=== PATIENT | male | born 1980 | race Caucasian/White ===

== ENCOUNTER 2018-04-17 10:38 | Outpatient (REF) | payer OTHER, SELFPAY ==
[2018-04-17 21:37] LABS: TSH 2.16 uIU/mL (0.358-3.74)
== END 2018-04-17 10:58 ==
LOC: NCHCN 10:38
PROVIDERS: PCP Family Medicine; Visit Provider Registered Nurse
DX: F32.9 Major depressive disorder, single episode, unspecified (principal)
CPT/HCPCS: 84443

== ENCOUNTER 2018-04-23 19:05 | Outpatient (REF) | payer OTHER, SELFPAY ==
[2018-04-23 22:00] LABS: HCT 48.5 % (40.0-50.0); HGB 17.2 g/dL (13.5-17.5); Mean Corp. HGB Concentration 35.5 g/dL (32.0-36.0); Mean Corpuscular Hemoglobin 29.2 pg (27.0-33.0); Mean Corpuscular Volume 82.2 fL (80-95); Platelet Count 201 x1000/uL (130-400); RBC Distribution Width 13.5 % (11.8-14.1); White Blood Cell Count 7.19 k/cumm (4.4-10.8)
[2018-04-23 22:06] LABS: ALT 46 U/L (12-78); AST 17 U/L (15-37); Albumin 4.4 g/dL (3.4-5.0); Alkaline Phosphatase 63 U/L (46-116); Anion Gap 9.7 mmol/L (3-11); BUN 18 mg/dL (7-18); Bilirubin, Total 0.4 mg/dL (0.2-1.0); CO2 28.3 mmol/L (21.0-32.0); CREATININE 0.86 mg/dL (0.70-1.30); Calcium 9.1 mg/dL (8.5-10.1); Chloride 99 mmol/L (98-107); Glucose 227 mg/dL (70-100); Potassium 4.5 mmol/L (3.5-5.1); Sodium 137 mmol/L (136-145); Total Protein 7.6 g/dL (6.4-8.2)
== END 2018-04-23 19:25 ==
LOC: NCHCN 19:05
PROVIDERS: PCP Family Medicine; Visit Provider Registered Nurse
DX: R06.00 Dyspnea, unspecified (principal); R50.9 Fever, unspecified; F32.9 Major depressive disorder, single episode, unspecified; Z86.39 Personal history of other endocrine, nutritional and metabolic disease; E66.9 Obesity, unspecified
CPT/HCPCS: 80053; 85027

== ENCOUNTER 2022-08-30 14:48 | Outpatient (REF) | payer OTHER, SELFPAY ==
[2022-08-30 21:22] LABS: Microalb ug/mg Crea 15.8 ug/mg Cr
== END 2022-08-30 14:49 | disposition home or self-care (01) ==
LOC: NCHCN 14:48
PROVIDERS: PCP Family Medicine; Visit Provider Nurse Practitioner Family
DX: E11.9 Type 2 diabetes mellitus without complications (principal)
CPT/HCPCS: 82043; 82570

== ENCOUNTER 2022-11-29 11:33 | Outpatient (REF) | payer OTHER, SELFPAY ==
[2022-11-29 18:24] LABS: ALT 63 U/L (16-63); AST 28 U/L (15-37); Albumin 4.1 g/dL (3.4-5.0); Alkaline Phosphatase 59 U/L (46-116); Anion Gap 10.6 mmol/L (3-11); BUN 18 mg/dL (7-18); Bilirubin, Total 0.3 mg/dL (0.2-1.0); CO2 26.4 mmol/L (21.0-32.0); CREATININE 0.8 mg/dL (0.70-1.30); Calcium 9.1 mg/dL (8.5-10.1); Chloride 102 mmol/L (98-107); Cholesterol 228 mg/dL (<200); Estimated GFR 114.02 (mL/min/1.73m2); Glucose 183 mg/dL (74-106); HDL Cholesterol 37 mg/dL (40-60); Potassium 4.4 mmol/L (3.5-5.1); Sodium 139 mmol/L (136-145); Total Protein 7.2 g/dL (6.4-8.2); Triglyceride 454 mg/dL (<150)
[2022-11-29 19:27] LABS: LDL CHOLESTEROL 116 mg/dL (<100)
== END 2022-11-29 11:34 | disposition home or self-care (01) ==
LOC: NCHCN 11:33
PROVIDERS: PCP Family Medicine; Visit Provider Nurse Practitioner Family
DX: I10 Essential (primary) hypertension (principal); E66.9 Obesity, unspecified; E78.5 Hyperlipidemia, unspecified
CPT/HCPCS: 80053; 80061; 83721

== ENCOUNTER 2024-02-20 17:14 | Outpatient (REF) | payer OTHER, SELFPAY ==
--- OUTSIDE RECORDS SUMMARY | 2024-02-20 17:16 | XMS_ITS ---
Author Organization Unknown Address [address] [place] [address] [phone] Phone Care Team Providers Care Life Enrichment Manager Name Role Phone AUGIE CALLEJAS Registered Nurse Unavailable MICHAEL Rivers Attending Unavailable SHANNA Bush Provider Of Care Unavailable MELISSA Johnson Primary Unavailable UNLISTED PROVIDER - REQUESTED Xhandoff Un available Results D-DIMER - Collect Date/Time: 12/16/2020 16:24 [facility] ID: [id number] [address] [place] [address], [address] LOINC: 41283-5 Test Value Unit Reference Range Code Code System Flag D-DIMER 0.28 mg/L L=0.19 H=0.50 66604-3 LOINC COMPREHENSIVE METABOLIC PANE L (CMP) - Collect Date/Time: 12/16/2020 16:15 [facility] ID: [id number] [address] [place] [address], [address] LOINC: 03616-9 Test Value Unit Reference Range Code Code System Flag GLUCOSE 264 mg/dL L=70 H=116 2345-7 LOINC H BUN 19 mg/dL L=6 H=25 3094-0 LOINC CREATININE 1.12 mg/dL L=0.67 H=1.17 2160-0 LOINC SODIUM SERUM 137 mmol/L L=136 H=145 2951-2 LOINC POTASSIUM SERUM 4.7 mmol/L L=3.4 H=5.2 2823-3 LOINC CHLORIDE SERUM 99 mmol/L L=96 H=110 2075-0 LOINC CARBON DIOXIDE (CO2) 28 mmol/L L=22 H=34 2028-9 LOINC ANION GAP 10.2 mmol/L 78965-9 LOINC CALCIUM SERUM 9.3 mg/dL L=8.2 H=10.2 89152-3 LOINC BILIRUBIN TOTAL 0.5 mg/dL L=0.0 H=1.3 1975-2 LOINC ALK. PHOS. 84 U/L L=46 H=116 6768-6 LOINC SGOT (AST) 17 U/L L=15 H=37 1920-8 LOINC SGPT (ALT) 71 U/L L=12 H=78 1742-6 LOINC TOTAL PROTEIN 7.8 gm/dL L=6.0 H=8.0 2885-2 LOINC ALBUMIN 4.2 gm/dL L=3.4 H=5.0 1751-7 LOINC AGE 40 years eGFR (non-Afr.Amer.) 73 mL/min 34241-8 LOINC eGFR (Afr-Tajik) 88 mL/min 59275-5 LOINC TROPONIN-I ADM.* - Collect D ate/Time: 12/16/2020 16:15 [facility] ID: [id number] [address] [place] [address], [address] LOINC: 21403-0 Test Value Unit Reference Range Code Code System Flag TROPONIN-I < 0.017 ng/mL L=0.000 H=0.060 83340-0 LOINC CBC W/ DIFFERENTIAL* - Colle ct Date/Time: 12/16/2020 16:15 [facility] ID: [id number] [address] [place] [address], [address] LOINC: 24701-0 Test Value Unit Reference Range Code Code System Flag WBC 5.49 th/cmm L=5.00 H=10.00 6690-2 LOINC NEUT % 56.5 % L=40.0 H=80.0 LYMPH % 31.1 % L=10.0 H=50.0 MONO % 9.1 % L=2.0 H=12.0 19478-0 LOINC EOS % 0.9 % L=0.0 H=8.0 BASO % 1.3 % L=0.0 H=3.0 IG % 1.1 % L=0.0 H=1.1 2514-8 LOINC NRBC % 0.0 % L=0.0 H=0.0 20354-8 LOINC NEUT abs count 3.1 th/cmm L=1.6 H=8.4 751-8 LOINC LYMPH abs count 1.7 th/cmm L=1.5 H=4.0 731-0 LOINC MONO abs count 0.5 th/cmm L=0.2 H=1.0 742-7 LOINC EOS abs count 0.1 th/cmm L=0.0 H=0.5 711-2 LOINC BASO abs count 0.1 th/cmm L=0.0 H=0.2 704-7 LOINC IG abs count 0.1 th/cmm L=0.0 H=0.1 90397-4 LOINC NRBC abs count 0.0 mil/cmm L=0.0 H=0.0 61064-5 LOINC RBC 5.94 mil/cmm L=4.30 H=6.20 789-8 LOINC HEMOGLOBIN 18.1 gm/dL L=13.0 H=17.0 718-7 LOINC H HEMATOCRIT 51 % L=45 H=52 4544-3 LOINC MCV 86 fL L=82 H=92 787-2 LOINC MCH 30.5 pg L=27.0 H=31.0 785-6 LOINC MCHC 35.6 % L=32.0 H=36.0 786-4 LOINC RDW-SD 42.6 fL L=39.0 H=49.0 788-0 LOINC PLATELET COUNT 238 th/cmm L=150 H=450 777-3 LOINC XR EXAM CHEST 2 VIEWS - Comp leted: 12/16/2020 16:23 LOINC: CHEST, 2 VIEWS: Compared to 12/14/2020. Chest leads in place. Heart size is unchanged and the mediastinum is not widened. The lungs remain clear. There are no infiltrates nor pleural effusions. IMPRESSION: No acute pulmonary findings. No significant change compared to 12/14/2020. Dictated by: LORENZO ENRIQUE MD Transcribed by: ML 12/17/20/15:00 [id number] Electronically Reviewed and Signed By: SOMMER ENRIQUE MD 12/19/20 16:27 Copy for: MICHAEL Rivers via modem DISCHARGED Social History Type Status Start Date End Date Code Code Syst em Smoking History Never smoker (Never Smoked) 281022401 SNOMED CT Sex Male Vital Signs Vital Sign Value Unit [place] Value [place]wsley Unit Date/Time Recent/Initial? Code Code System Body Mass Index 44.48 kg/m2 12/16/2020 15:21 Initial 24291 -5 LOINC Systolic Blood Pressure 126 mm[Hg] 12/16/2020 15:21 Initial 8480- 6 LOINC Diastolic Blood Pressure 90 mm[Hg] 12/16/2020 15:21 Initial 8462- 4 LOINC Body Surface Area 2.64 m2 12/16/2020 15:21 Initial 3140- 1 LOINC Height 177.800 0 cm 70.00 in 12/16/2020 15:21 Initial 8302- 2 LOINC O2 Saturation 99 % 2020 15:21 Initial 09037 -5 LOINC Pulse 114.0 /min 12/16/2020 15:21 Initial 8867- 4 LOINC Respiration 22 /min 12/17/19 15:21 Initial 9279- 1 LOINC Temperature 36.4 Saskia 97.5 F 12/17/19 15:21 Initial 8310- 5 LOINC Weight 140.61 kg 310.00 lbs 12/16/2020 15:21 Initial 71718 -7 LOINC Medications Medication Start Date End Date Route Frequency Dose Code Code System Medication Instructions Home Meds Clindamycin 150MG Oral Capsule 10/07/2023 12/10/2023 ORAL THREE TIMES A DAY 3 CAPSULE 630333 RxNorm TAKE 3 CAPSULE ORAL THREE TIMES A DAY Assessment You had the following problems:DIABETES TYPE [facility] Discharge Instructions Should you have any questions prior to discharge, please contact a member of your healthcare team. If you have left the hospital and have any questions, please contact your primary care physician. Reason For Referral No Data Found Problems Problem Start Date Resolved Date Status Code Code System DIABETES TYPE I active 77493038 SNOM ED-CT HTN active 36393384 SNOMED-CT HIGH CHOLESTEROL active 64825979 SNO MED-CT Allergies and Adverse Reactions Allergy Substance Reaction Severity Start Date Concern Status Co de Code System CLINDAMYCIN RASH (SNOMED-CT: null) Active 3299 RxNorm Plan of Treatment Exposure 01/25/2020 Exposure 01/21/2020 Pre-Op Covid-19 Testing 12/31/2019 PRE-OP TESTING 10/17/2023 EKG 10/17/2023 LAB DRAW 15MIN 10/17/2023 MRI C SPINE W/O CONTRAST 09/02/2023 X-RAY 12/05/2022 LAB DRAW 15MIN 02/23/2022 LAB DRAW 15MIN 11/01/2021 LAB DRAW 15MIN 10/06/2021 LAB DRAW 15MIN 08/15/2021 LAB DRAW 15MIN 01/28/2021 X-RAY 12/14/2020 LAB DRAW 15MIN 12/13/2020 CT HEAD W/O CONTRAST 12/20/2020 PRE-OP TESTING 12/07/2020 LAB DRAW 15MIN 12/06/2020 Encounters Encounter Diagnosis Start Date Code Code Sys tem Chest pain 12/16/2020 50399507 SNOMED-CT Personal Care Team Section Performer Name Performer Role Active Date Inactive Da sharri
--- OUTSIDE RECORDS SUMMARY | 2024-02-20 17:16 | XMS_ITS ---
Author Organization Unknown Address [address] [place] [address] [phone] Phone Care Team Providers Care Size Worker Name Role Phone MELISSA Johnson Attending Unavailable Results THYROID TESTING CASCADE* - C ollect Date/Time: 12/13/2020 11:23 [facility] ID: [id number] [address] [place] [address], [address] LOINC: 3016-3 Test Value Unit Reference Range Code Code System Flag TSH. 1.943 uIU/mL L=0.360 H=3.740 3014-8 LOINC C REACTIVE PROTEIN HIGH SENS ITIVITY* - Collect Date/Time: 12/13/2020 11:23 [facility] ID: [id number] - [id number] [address] [place] [address], [address] LOINC: 06974-2 Test Value Unit Reference Range Code Code System Flag CRP-HIGH SENS. 17.25 mg/L L=0.00 H=3.00 82446-2 LOINC H CRP-HIGH SENS 1.73 mg/dL L=0.00 H=0.30 77031-5 LOINC H COMPREHENSIVE METABOLIC PANE L (CMP) - Collect Date/Time: 12/13/2020 11:23 [facility] ID: [id number] [address] [place] [address], [address] LOINC: 73586-5 Test Value Unit Reference Range Code Code System Flag GLUCOSE 310 mg/dL L=70 H=116 2345-7 LOINC H BUN 18 mg/dL L=6 H=25 3094-0 LOINC CREATININE 0.94 mg/dL L=0.67 H=1.17 2160-0 LOINC SODIUM SERUM 136 mmol/L L=136 H=145 2951-2 LOINC POTASSIUM SERUM 4.9 mmol/L L=3.4 H=5.2 2823-3 LOINC CHLORIDE SERUM 97 mmol/L L=96 H=110 2075-0 LOINC CARBON DIOXIDE (CO2) 30 mmol/L L=22 H=34 2028-9 LOINC ANION GAP 9.2 mmol/L 20535-7 LOINC CALCIUM SERUM 9.5 mg/dL L=8.2 H=10.2 14407-0 LOINC BILIRUBIN TOTAL 0.5 mg/dL L=0.0 H=1.3 1975-2 LOINC ALK. PHOS. 87 U/L L=46 H=116 6768-6 LOINC SGOT (AST) 27 U/L L=15 H=37 1920-8 LOINC SGPT (ALT) 103 U/L L=12 H=78 1742-6 LOINC H TOTAL PROTEIN 8.2 gm/dL L=6.0 H=8.0 2885-2 LOINC H ALBUMIN 4.2 gm/dL L=3.4 H=5.0 1751-7 LOINC AGE 40 years eGFR (non-Afr.Amer.) 89 mL/min 15615-7 LOINC eGFR (Afr-Gambian) 108 mL/min 87614-8 [facility] SED RATE* - Collect Date/Mao e: 12/13/2020 11:23 [facility] ID: [id number] [address] [place] [address], [address] LOINC: 4537-7 Test Value Unit Reference Range Code Code System Flag SED. RATE 4 mm/hr L=0 H=15 4537-7 [facility] CBC W/ DIFFERENTIAL* - Colle ct Date/Time: 12/13/2020 11:23 [facility] ID: [id number] [address] [place] [address], [address] LOINC: 86537-2 Test Value Unit Reference Range Code Code System Flag WBC 5.26 th/cmm L=5.00 H=10.00 6690-2 LOINC NEUT % 60.2 % L=40.0 H=80.0 LYMPH % 26.6 % L=10.0 H=50.0 MONO % 9.7 % L=2.0 H=12.0 51794-0 LOINC EOS % 1.1 % L=0.0 H=8.0 BASO % 1.1 % L=0.0 H=3.0 IG % 1.3 % L=0.0 H=1.1 2514-8 LOINC H NRBC % 0.0 % L=0.0 H=0.0 61660-0 LOINC NEUT abs count 3.2 th/cmm L=1.6 H=8.4 751-8 LOINC LYMPH abs count 1.4 th/cmm L=1.5 H=4.0 731-0 LOINC L MONO abs count 0.5 th/cmm L=0.2 H=1.0 742-7 LOINC EOS abs count 0.1 th/cmm L=0.0 H=0.5 711-2 LOINC BASO abs count 0.1 th/cmm L=0.0 H=0.2 704-7 LOINC IG abs count 0.1 th/cmm L=0.0 H=0.1 25552-4 LOINC NRBC abs count 0.0 mil/cmm L=0.0 H=0.0 07190-0 LOINC RBC 5.97 mil/cmm L=4.30 H=6.20 789-8 LOINC HEMOGLOBIN 17.4 gm/dL L=13.0 H=17.0 718-7 LOINC H HEMATOCRIT 51 % L=45 H=52 4544-3 LOINC MCV 85 fL L=82 H=92 787-2 LOINC MCH 29.1 pg L=27.0 H=31.0 785-6 LOINC MCHC 34.3 % L=32.0 H=36.0 786-4 LOINC RDW-SD 42.0 fL L=39.0 H=49.0 788-0 LOINC PLATELET COUNT 212 th/cmm L=150 H=450 777-3 LOINC D-DIMER - Collect Date/Time: 12/13/2020 11:23 [facility] ID: [id number] [address], [place], [address] LOINC: 59732-7 Test Value Unit Reference Range Code Code System Flag D-DIMER 0.30 mg/L L=0.19 H=0.50 92711-2 LOINC Social History Type Status Start Date End Date Code Code Syst em Smoking History Never smoker (Never Smoked) 701491384 SNOMED CT Sex Male Medications Medication Start Date End Date Route Frequency Dose Code Code System Medication Instructions Home Meds Clindamycin 150MG Oral Capsule 10/07/2023 12/10/2023 ORAL THREE TIMES A DAY 3 CAPSULE 19740218 RxNorm TAKE 3 CAPSULE ORAL THREE TIMES A DAY Assessment You had the following problems:DIABETES TYPE [facility] Discharge Instructions Should you have any questions prior to discharge, please contact a member of your healthcare team. If you have left the hospital and have any questions, please contact your primary care physician. Reason For Referral No Data Found Problems Problem Start Date Resolved Date Status Code Code System DIABETES TYPE I active 67140966 SNOM ED-CT HTN active 26371124 SNOMED-CT HIGH CHOLESTEROL active 65179681 SNO MED-CT Allergies and Adverse Reactions Allergy Substance Reaction Severity Start Date Concern Status Co de Code System CLINDAMYCIN RASH (SNOMED-CT: null) Active 3532 RxNorm Plan of Treatment Exposure 01/25/2020 Exposure [...] Diagnosis Start Date Code Code Sys tem Palpitations 12/13/2020 77963731 SNOMED-CT Personal Care Team Section Performer Name Performer Role Active Date Inactive Da te
--- OUTSIDE RECORDS SUMMARY | 2024-02-20 17:16 | XMS_ITS ---
Author Organization Unknown Address [address] [place] [address] [phone] Phone Care Team Providers Care Casting House Laborer Name Role Phone MELISSA Johnson Attending Unavailable Results XR EXAM CHEST 2 VIEWS - Comp leted: 12/14/2020 10:20 LOINC: PA AND LATERAL CHEST:Compari son is made with 2 June 01. The cardiac and mediastinal contours have a normal appearance. The lungs are clear. There is poor pulmonary inflation which could be second to patient body habitus. Mild degenerative changes are seen in the spine. IMPRESSION:No acute abnormality. Dictated by: CEO ARDEN ELIZALDE MD Transcribed by: KHANG 12/14/20/14:58 D Monday, December 14, 2020 10:16:33 AM 283301 [id number] Electronically Reviewed and Signed By: ARDEN ELIZALDE MD 12/14/20 15:47 Copy for: MELISSA Johnson via fax XR SHOULDER 2+ VIEWS LT* - C ompleted: 12/14/2020 10:20 LOINC: LEFT SHOULDER - 4 VIEWS: Four views were obtained. There is mild spurring at the AC joint. There is spurring at the greater and lesser tuberosities. The glenohumeral joint space is well maintained. IMPRESSION:Mild degenerative changes. Dictated by: ARDEN ELIZALDE MD Transcribed by: KHANG 12/14/20/15:00 D Monday, December 14, 2020 10:17:18 AM 298740 [id number] Electronically Reviewed and Signed By: ARDEN ELIZALDE MD 12/14/20 15:47 Copy for: MELISSA Johnson via fax Social History Type Status Start Date End Date Code Code Syst em Smoking History Never smoker (Never Smoked) 196722380 SNOMED CT Sex Male Medications Medication Start Date End Date Route Frequency Dose Code Code System Medication Instructions Home Meds Clindamycin 150MG Oral Capsule 10/07/2023 12/10/2023 ORAL THREE TIMES A DAY 3 CAPSULE 19740218 RxNorm TAKE 3 CAPSULE ORAL THREE TIMES A DAY Assessment You had the following problems:DIABETES TYPE [facility] Discharge Instructions Should you have any questions prior to discharge, please contact a member of your healthcare team. If you have left the hospital and have any questions, please contact your primary care physician. Reason For Referral No Data Found Problems Problem Start Date Resolved Date Status Code Code System DIABETES TYPE I active 05909276 SNOM ED-CT HTN active 49607819 SNOMED-CT HIGH CHOLESTEROL active 95273435 SNO MED-CT Allergies and Adverse Reactions Allergy Substance Reaction Severity Start Date Concern Status Co de Code System CLINDAMYCIN RASH (SNOMED-CT: null) Active 2582 RxNorm Plan of Treatment Exposure 01/25/2020 Exposure [...] Date Code Code Sys tem Chest pain 12/14/2020 35952638 SNOMED-CT Personal Care Team Section Performer Name Performer Role Active Date Inactive Da sharri
--- OUTSIDE RECORDS SUMMARY | 2024-02-20 17:17 | XMS_ITS ---
Author Organization Unknown Address [address] [place] [address] [phone] Phone Care Team Providers Care Center Medical And Lab Director Name Role Phone MELISSA GORDO Alex Attending Unavailable Results C REACTIVE PROTEIN HIGH SENS ITIVITY* - Collect Date/Time: 01/28/2021 08:00 [facility] ID: [id number] [address] [place] [address], [address] LOINC: 19707-2 Test Value Unit Reference Range Code Code System Flag CRP-HIGH SENS. 4.00 mg/L L=0.00 H=3.00 34204-3 LOINC H CRP-HIGH SENS 0.40 mg/dL L=0.00 H=0.30 15656-9 LOINC H LIPID PANEL* - Collect Date/ Time: 01/28/2021 08:00 [facility] ID: [id number] [address] [place] [address], [id number] LOINC: Test Value Unit Reference Range Code Code System Flag FASTING STATUS: NOT KNOWN CHOLESTEROL 164 mg/dL L=0 H=200 2093-3 LOINC TRIGLYCERIDES 325 mg/dL L=56 H=318 2571-8 LOINC H HDL 32 mg/dL L=27 H=67 2085-9 LOINC non-HDL-C 132 mg/dL L=0 H=160 66115-6 LOINC LDL (CALC) 67 mg/dL L=0 H=130 66999-3 LOINC % HDL 19.5 % Chol/HDL Ratio 5.1 L=0.0 H=4.9 9830-1 LOINC H CHD Relative Risk 1.0 x Avg L=0.0 H=1.0 LDL/HDL Ratio 2.1 L=0.0 H=3.5 24300-3 LOINC CHD Relative Risk. 0.6 x Avg L=0.0 H=1.0 MICROALBUMIN URINE - Collect Date/Time: 01/28/2021 08:00 [facility] ID: [id number] - [id number] [address] [place], [place], [id number] LOINC: 73303-5 Test Value Unit Reference Range Code Code System Flag Creatinine Urine 88.7 mg/dl 2161-8 LOINC Microalb mg/dl 3.4 mg/dl 24569-2 LOINC Microalbumin ug/mg C 38.3 ug/mg Cr 9318-7 LOINC HEMOGLOBIN A1C* - Collect Da te/Time: 01/28/2021 08:00 [facility] ID: [id number] [address] [place] [address], [address] LOINC: 75449-2 Test Value Unit Reference Range Code Code System Flag Hgb A1c 8.1 % L=3.8 H=5.7 4548-4 LOINC H MEAN BLOOD GLUCOSE 184 mg/dL 70440-2 LOINC Social History Type Status Start Date End Date Code Code Syst em Smoking History Never smoker (Never Smoked) 241235231 SNOMED CT Sex Male Medications Medication Start Date End Date Route Frequency Dose Code Code System Medication Instructions Home Meds Clindamycin 150MG Oral Capsule 10/07/2023 12/10/2023 ORAL THREE TIMES A DAY 3 CAPSULE 358877 RxNorm TAKE 3 CAPSULE ORAL THREE TIMES A DAY Assessment You had the following problems:DIABETES TYPE [facility] Discharge Instructions Should you have any questions prior to discharge, please contact a member of your healthcare team. If you have left the hospital and have any questions, please contact your primary care physician. Reason For Referral No Data Found Problems Problem Start Date Resolved Date Status Code Code System DIABETES TYPE I active 28335084 SNOM ED-CT HTN active 05551001 SNOMED-CT HIGH CHOLESTEROL active 20086103 SNO MED-CT Allergies and Adverse Reactions Allergy Substance Reaction Severity Start Date Concern Status Co de Code System CLINDAMYCIN RASH (SNOMED-CT: null) Active 2584 RxNorm Plan of Treatment Exposure 01/25/2020 Exposure [...] Diagnosis Start Date Code Code Sys tem Type 2 diabetes mellitus without complication 01/29/20 21 791036358 SNOMED-CT Personal Care Team Section Performer Name Performer Role Active Date Inactive Da te
--- OUTSIDE RECORDS SUMMARY | 2024-02-20 17:17 | XMS_ITS ---
Author Organization Unknown Address [address] [place] [address] [phone] Phone Care Team Providers Care Nurse Examiner Name Role Phone BRIGIDA Barajas Attending Unavailable CRICKET Patel Primary Unavailable Social History Type Status Start Date End Date Code Code Syst em Smoking History Never smoker (Never Smoked) 291090871 SNOMED CT Sex Male Vital Signs Vital Sign Value Unit [place] Value [place] Unit Date/Time Recent/Initial? Code Code System Body Mass Index 46.07 kg/m2 12/24/2023 12:47 Initial 39863- 5 [facility] Body Surface Area 2.62 m2 12/24/2023 12:47 Initial 3140-1 LOINC Height 175.2600 cm 69.00 in 12/24/2023 12:47 Initial 8302-2 INC Weight 141.52 kg 312.00 lbs 12/24/2023 12:47 Initial 84862- 7 [facility] Medications Medication Start Date End Date Route Frequency Dose Code Code System Medication Instructions Orders ALTEPLASE INJ SDV: 2MG 12/24/2023 12/24/2023 IV PUSH X1 2 MG 4171283 RxNorm 2 MG IV P USH ONE TIME ALTEPLASE INJ SDV: 2MG 12/27/2023 12/27/2023 IV PUSH X1 2 MG 2122769 RxNorm 2 MG IV P USH ONE TIME DAPTOmycin INJ SDV: 500MG 01/01/2024 02/04/2024 IV PIGGYBACK Q24H 100 ml/hr 049124 RxNorm 100 ml/hr IV PIGGYBACK EVERY 24 HOURS ~~~DAPTOmycin INJ SDV: 500MG 500 MG RxNorm ~~~DAPTOmycin INJ SDV: 350MG 300 MG RxNorm ~~~SODIUM CHLORIDE 0.9% 50ML 50 ML RxNorm Assessment You had the following problems:DIABETES TYPE [facility] Discharge Instructions Should you have any questions prior to discharge, please contact a member of your healthcare team. If you have left the hospital and have any questions, please contact your primary care physician. Reason For Referral No Data Found Problems Problem Start Date Resolved Date Status Code Code System DIABETES TYPE I active 20884489 SNOM ED-CT HTN active 24315897 SNOMED-CT HIGH CHOLESTEROL active 71316792 SNO MED-CT Allergies and Adverse Reactions Allergy Substance Reaction Severity Start Date Concern Status Co de Code System CLINDAMYCIN RASH (SNOMED-CT: null) Active 1422 RxNorm Plan of Treatment Exposure 01/25/2020 Exposure [...] Diagnosis Start Date Code Code Sys tem Other mechanical complicatio n of infusion catheter, initial encounter 12/24/2023 SNOMED-CT Personal Care Team Section Performer Name Performer Role Active Date Inactive Da te
--- OUTSIDE RECORDS SUMMARY | 2024-02-20 17:17 | XMS_ITS ---
Author Organization Unknown Address [address] [place] [address] [phone] Phone Care Team Providers Care Brokerage Office Manager Name Role Phone MELISSA Johnson Attending Unavailable Results CT HEAD BRAIN WO DYE - Compl eted: 12/20/2020 17:08 LOINC: Radiation optimization: All CT scans at this facility use at least one of these dose optimization techniques: automated exposure control; mA and/or kV adjustment per patient size (includes targeted exams where dose is matched to clinical indication); or iterative reconstruction. HEAD CT: There are no skull fractures nor fluid in the visualized paranasal sinuses.?? There is no evidence of intracranial hemorrhage, mass effect, nor shift of midline structures.?? There are no extraaxial fluid collections.?? The ventricles are not enlarged nor shifted and there is no blood within the ventricular system nor within the basal cisterns.?? IMPRESSION:No acute intracranial findings on this non-infused CT scan of the brain. Dictated by: LORENZO ENRIQUE MD Transcribed by: KHANG 12/21/20/10:42 D Sunday, December 20, 2020 5:07:38 PM [id number] Electronically Reviewed and Signed By: SOMMER ENRIQUE MD 12/21/20 19:57 Social History Type Status Start Date End Date Code Code Syst em Smoking History Never smoker (Never Smoked) 857906740 SNOMED CT Sex Male Medications Medication Start Date End Date Route Frequency Dose Code Code System Medication Instructions Home Meds Clindamycin 150MG Oral Capsule 10/07/2023 12/10/2023 ORAL THREE TIMES A DAY 3 CAPSULE 167039 RxNorm TAKE 3 CAPSULE ORAL THREE TIMES A DAY Assessment You had the following problems:DIABETES TYPE [facility] Discharge Instructions Should you have any questions prior to discharge, please contact a member of your healthcare team. If you have left the hospital and have any questions, please contact your primary care physician. Reason For Referral No Data Found Problems Problem Start Date Resolved Date Status Code Code System DIABETES TYPE I active 08454422 SNOM ED-CT HTN active 08085346 SNOMED-CT HIGH CHOLESTEROL active 96007103 SNO MED-CT Allergies and Adverse Reactions Allergy Substance Reaction Severity Start Date Concern Status Co de Code System CLINDAMYCIN RASH (SNOMED-CT: null) Active 7419 RxNorm Plan of Treatment Exposure 01/25/2020 Exposure [...] Diagnosis Start Date Code Code Sys tem Closed fracture of vault of skull 12/20/2020 0221113 00 SNOMED-CT Personal Care Team Section Performer Name Performer Role Active Date Inactive Da sharri
--- OUTSIDE RECORDS SUMMARY | 2024-02-20 17:18 | XMS_ITS ---
Author Organization Unknown Address [address] [place] [address] [phone] Phone Care Team Providers Care Industrial Engineering Technician Name Role Phone MELISSA Johnson Attending Unavailable Results HEMOGLOBIN A1C* - Collect Da te/Time: 08/15/2021 13:36 [facility] ID: [id number] [address] [place] [address], [address] LOINC: 4548-4 Test Value Unit Reference Range Code Code System Flag Hgb A1c 7.8 % L=3.8 H=5.7 4548-4 LOINC H MEAN BLOOD GLUCOSE 174 mg/dL 79288-4 LOINC COMPREHENSIVE METABOLIC PANE L (CMP) - Collect Date/Time: 08/15/2021 13:36 [facility] ID: [id number] [address] [place] [address], [address] LOINC: 52180-4 Test Value Unit Reference Range Code Code System Flag GLUCOSE 250 mg/dL L=70 H=116 2345-7 LOINC H BUN 19 mg/dL L=6 H=25 3094-0 LOINC CREATININE 1.05 mg/dL L=0.67 H=1.17 2160-0 LOINC SODIUM SERUM 136 mmol/L L=136 H=145 2951-2 LOINC POTASSIUM SERUM 4.4 mmol/L L=3.4 H=5.2 2823-3 LOINC CHLORIDE SERUM 98 mmol/L L=96 H=110 2075-0 LOINC CARBON DIOXIDE (CO2) 27 mmol/L L=22 H=34 2028-9 LOINC ANION GAP 11.4 mmol/L 44076-3 LOINC CALCIUM SERUM 8.7 mg/dL L=8.2 H=10.2 41626-4 LOINC BILIRUBIN TOTAL 0.3 mg/dL L=0.0 H=1.3 1975-2 LOINC ALK. PHOS. 77 U/L L=46 H=116 6768-6 LOINC SGOT (AST) 8 U/L L=15 H=37 1920-8 LOINC L SGPT (ALT) 43 U/L L=12 H=78 1742-6 LOINC TOTAL PROTEIN 7.3 gm/dL L=6.0 H=8.0 2885-2 LOINC ALBUMIN 3.8 gm/dL L=3.4 H=5.0 1751-7 LOINC AGE 41 years eGFR (non-Afr.Amer.) 78 mL/min 97100-0 LOINC eGFR (Afr-Citizen Of [place]) 95 mL/min 73188-5 LOINC CBC W/ DIFFERENTIAL* - Colle ct Date/Time: 08/15/2021 13:36 [facility] ID: [id number] [address] [place], [place], [address] LOINC: 53748-5 Test Value Unit Reference Range Code Code System Flag WBC 5.89 th/cmm L=5.00 H=10.00 6690-2 LOINC NEUT % 61.7 % L=40.0 H=80.0 LYMPH % 25.6 % L=10.0 H=50.0 MONO % 9.2 % L=2.0 H=12.0 97008-9 LOINC EOS % 1.5 % L=0.0 H=8.0 BASO % 0.8 % L=0.0 H=3.0 IG % 1.2 % L=0.0 H=1.1 2514-8 LOINC H NRBC % 0.0 % L=0.0 H=0.0 51230-3 LOINC NEUT abs count 3.6 th/cmm L=1.6 H=8.4 751-8 LOINC LYMPH abs count 1.5 th/cmm L=1.5 H=4.0 731-0 LOINC MONO abs count 0.5 th/cmm L=0.2 H=1.0 742-7 LOINC EOS abs count 0.1 th/cmm L=0.0 H=0.5 711-2 LOINC BASO abs count 0.1 th/cmm L=0.0 H=0.2 704-7 LOINC IG abs count 0.1 th/cmm L=0.0 H=0.1 95694-0 LOINC NRBC abs count 0.0 mil/cmm L=0.0 H=0.0 79166-0 LOINC RBC 5.62 mil/cmm L=4.30 H=6.20 789-8 LOINC HEMOGLOBIN 16.4 gm/dL L=13.0 H=17.0 718-7 LOINC HEMATOCRIT 48 % L=45 H=52 4544-3 LOINC MCV 85 fL L=82 H=92 787-2 LOINC MCH 29.2 pg L=27.0 H=31.0 785-6 LOINC MCHC 34.5 % L=32.0 H=36.0 786-4 LOINC RDW-SD 40.4 fL L=39.0 H=49.0 788-0 LOINC PLATELET COUNT 181 th/cmm L=150 H=450 777-3 LOINC Social History Type Status Start Date End Date Code Code Syst em Smoking History Never smoker (Never Smoked) 840626023 SNOMED CT Sex Male Medications Medication Start Date End Date Route Frequency Dose Code Code System Medication Instructions Home Meds Clindamycin 150MG Oral Capsule 10/07/2023 12/10/2023 ORAL THREE TIMES A DAY 3 CAPSULE 958865 RxNorm TAKE 3 CAPSULE ORAL THREE TIMES A DAY Assessment You had the following problems:DIABETES TYPE [facility] Discharge Instructions Should you have any questions prior to discharge, please contact a member of your healthcare team. If you have left the hospital and have any questions, please contact your primary care physician. Reason For Referral No Data Found Problems Problem Start Date Resolved Date Status Code Code System DIABETES TYPE I active 87746361 SNOM ED-CT HTN active 85946936 SNOMED-CT HIGH CHOLESTEROL active 59102390 SNO MED-CT Allergies and Adverse Reactions Allergy [...] tem Type 2 diabetes mellitus without complication 08/16/19 815290403 SNOMED-CT Personal Care Team Section Performer Name Performer Role Active Date Inactive Da sharri
--- OUTSIDE RECORDS SUMMARY | 2024-02-20 17:18 | XMS_ITS ---
Author Organization Unknown Address [address] [place] [address] [phone] Phone Care Team Providers Care Breast Worker Name Role Phone JOSE Patel Attending Unavailable CRICKET Patel Primary Unavailable Results BASIC METABOLIC PANEL (BMP) - Collect Date/Time: 12/23/2023 10:32 [facility] ID: [id number] [address], [place], [address] LOINC: 35646-4 Test Value Unit Reference Range Code Code System Flag GLUCOSE 154 mg/dL L=70 H=116 2345-7 LOINC H BUN 14 mg/dL L=6 H=25 3094-0 LOINC CREATININE 0.78 mg/dL L=0.67 H=1.17 2160-0 LOINC SODIUM SERUM 140 mmol/L L=136 H=145 2951-2 LOINC POTASSIUM SERUM 4.4 mmol/L L=3.4 H=5.2 2823-3 LOINC CHLORIDE SERUM 106 mmol/L L=96 H=110 2075-0 LOINC CARBON DIOXIDE (CO2) 25 mmol/L L=22 H=34 2028-9 LOINC ANION GAP 9.3 mmol/L 69134-5 LOINC CALCIUM SERUM 8.8 mg/dL L=8.2 H=10.2 87285-2 LOINC AGE 43 years eGFR (non-Afr.Amer.) 109 mL/min 75378-1 LOINC eGFR (Afr-Cuban) > 120 mL/min 71279-4 LOINC VANCOMYCIN TROUGH* - Collect Date/Time: 12/23/2023 10:32 [facility] ID: [id number] [address] [place] [address], [address] LOINC: 4092-3 Test Value Unit Reference Range Code Code System Flag VANCOMYCIN, TROUGH 26.8 ug/mL L=15.0 H=20.0 H SED RATE* - Collect Date/Mao e: 12/23/2023 10:32 [facility] ID: [id number] [address] [place] [address], [address] LOINC: 4537-7 Test Value Unit Reference Range Code Code System Flag SED. RATE 5 mm/hr L=0 H=15 4537-7 LOINC C REACTIVE PROTEIN HIGH SENS ITIVITY* - Collect Date/Time: 12/23/2023 10:32 [facility] ID: [id number] [address] [place] [address], [address] LOINC: 98453-8 Test Value Unit Reference Range Code Code System Flag CRP-HIGH SENS. 4.43 mg/L L=0.00 H=3.00 09890-8 LOINC H CBC W/ DIFFERENTIAL* - Colle ct Date/Time: 12/23/2023 10:32 [facility] ID: [id number] [address] [place] [address], [address] LOINC: 48232-9 Test Value Unit Reference Range Code Code System Flag WBC 4.88 th/cmm L=5.00 H=10.00 6690-2 LOINC L NEUT % 59.0 % L=40.0 H=80.0 LYMPH % 27.5 % L=10.0 H=50.0 MONO % 7.0 % L=2.0 H=12.0 20236-1 LOINC EOS % 3.7 % L=0.0 H=8.0 BASO % 1.4 % L=0.0 H=3.0 IG % 1.4 % L=0.0 H=1.1 9074-8 LOINC H NRBC % 0.0 % L=0.0 H=0.0 22051-3 LOINC NEUT abs count 2.9 th/cmm L=1.6 H=8.4 751-8 LOINC LYMPH abs count 1.3 th/cmm L=1.5 H=4.0 731-0 LOINC L MONO abs count 0.3 th/cmm L=0.2 H=1.0 742-7 LOINC EOS abs count 0.2 th/cmm L=0.0 H=0.5 711-2 LOINC BASO abs count 0.1 th/cmm L=0.0 H=0.2 704-7 LOINC IG abs count 0.1 th/cmm L=0.0 H=0.1 03761-5 LOINC NRBC abs count 0.0 mil/cmm L=0.0 H=0.0 64049-8 LOINC RBC 5.14 mil/cmm L=4.30 H=6.20 789-8 LOINC HEMOGLOBIN 15.3 gm/dL L=13.0 H=17.0 718-7 LOINC HEMATOCRIT 44 % L=45 H=52 4544-3 LOINC L MCV 86 fL L=82 H=92 787-2 LOINC MCH 29.8 pg L=27.0 H=31.0 785-6 LOINC MCHC 34.6 % L=32.0 H=36.0 786-4 LOINC RDW-SD 40.7 fL L=39.0 H=49.0 788-0 LOINC PLATELET COUNT 182 th/cmm L=150 H=450 777-3 LOINC Social History Type Status Start Date End Date Code Code Syst em Smoking History Never smoker (Never Smoked) 957364719 SNOMED CT Sex Male Assessment You had the following problems:DIABETES TYPE [facility] Discharge Instructions Should you have any questions prior to discharge, please contact a member of your healthcare team. If you have left the hospital and have any questions, please contact your primary care physician. Reason For Referral No Data Found Problems Problem Start Date Resolved Date Status Code Code System DIABETES TYPE I active 05271554 SNOM ED-CT HTN active 05963971 SNOMED-CT HIGH CHOLESTEROL active 31808785 SNO MED-CT Allergies and Adverse Reactions Allergy Substance Reaction Severity Start Date Concern Status Co de Code System CLINDAMYCIN RASH (SNOMED-CT: null) Active 9819 RxNorm Plan of Treatment Exposure 01/25/2020 Exposure [...] Diagnosis Start Date Code Code Sys tem Surgical site infection 12/23/2023 380758664 [facility] ED-CT Personal Care Team Section Performer Name Performer Role Active Date Inactive Da te
--- OUTSIDE RECORDS SUMMARY | 2024-02-20 17:19 | XMS_ITS ---
Author Organization Unknown Address [address] [place] [address] [phone] Phone Care Team Providers Care Security Guard Name Role Phone MELISSA Johnson Attending Unavailable Results HEMOGLOBIN A1C* - Collect Da te/Time: 11/01/2021 13:17 [facility] ID: [id number] - [id number] [address] [place] [address], [address] LOINC: 4548-4 Test Value Unit Reference Range Code Code System Flag Hgb A1c 7.6 % L=3.8 H=5.7 4548-4 LOINC H MEAN BLOOD GLUCOSE 167 mg/dL 98894-4 LOINC LITHIUM - Collect Date/Time: 11/01/2021 13:17 [facility] ID: [id number] [address] [place] [address], [id number] LOINC: 3719-2 Test Value Unit Reference Range Code Code System Flag LITHIUM < 0.2 mEq/L L=0.6 H=1.2 3719-2 LOINC L Social History Type Status Start Date End Date Code Code Syst em Smoking History Never smoker (Never Smoked) 364682321 SNOMED CT Sex Male Medications Medication Start Date End Date Route Frequency Dose Code Code System Medication Instructions Home Meds Clindamycin 150MG Oral Capsule 10/07/2023 12/10/2023 ORAL THREE TIMES A DAY 3 CAPSULE 19740218 RxNorm TAKE 3 CAPSULE ORAL THREE TIMES A DAY Assessment You had the following problems:DIABETES TYPE [facility] Discharge Instructions Should you have any questions prior to discharge, please contact a member of your healthcare team. If you have left the hospital and have any questions, please contact your primary care physician. Reason For Referral No Data Found Problems Problem Start Date Resolved Date Status Code Code System DIABETES TYPE I active 20518934 SNOM ED-CT HTN active 31331488 SNOMED-CT HIGH CHOLESTEROL active 33184729 SNO MED-CT Allergies and Adverse Reactions Allergy Substance Reaction Severity Start Date Concern Status Co de Code System CLINDAMYCIN RASH (SNOMED-CT: null) Active 4590 RxNorm Plan of Treatment Exposure 01/25/2020 Exposure [...] Diagnosis Start Date Code Code Sys tem Bipolar disorder 11/01/2021 12542797 SNOMED-CT Personal Care Team Section Performer Name Performer Role Active Date Inactive Da sharri
--- OUTSIDE RECORDS SUMMARY | 2024-02-20 17:19 | XMS_ITS ---
Author Organization Unknown Address [address] [place] [address] [phone] Phone Care Team Providers Care Application Support Engineer Name Role Phone DAMIEN Ferrara Attending Unavailable MELISSA Johnson Primary Unavailable Social History Type Status Start Date End Date Code Code Syst em Smoking History Never smoker (Never Smoked) 204825107 SNOMED CT Sex Male Medications Medication Start Date End Date Route Frequency Dose Code Code System Medication Instructions Home Meds Clindamycin 150MG Oral Capsule 10/07/2023 12/10/2023 ORAL THREE TIMES A DAY 3 CAPSULE 081647 RxNorm TAKE 3 CAPSULE ORAL THREE TIMES A DAY Assessment You had the following problems:DIABETES TYPE [facility] Discharge Instructions Should you have any questions prior to discharge, please contact a member of your healthcare team. If you have left the hospital and have any questions, please contact your primary care physician. Reason For Referral No Data Found Problems Problem Start Date Resolved Date Status Code Code System DIABETES TYPE I active 53458020 SNOM ED-CT HTN active 46863279 SNOMED-CT HIGH CHOLESTEROL active 02322235 SNO MED-CT Allergies and Adverse Reactions Allergy [...] Start Date Code Code Sys tem Palpitations 11/27/2021 46017241 SNOMED-CT Personal Care Team Section Performer Name Performer Role Active Date Inactive Da te
--- OUTSIDE RECORDS SUMMARY | 2024-02-20 17:19 | XMS_ITS ---
Author Organization Unknown Address [address] [place] [address] [phone] Phone Care Team Providers Care Variety Performer Name Role Phone MELISSA Johnson Attending Unavailable Results HEMOGLOBIN A1C* - Collect Da te/Time: 02/23/2022 08:33 [facility] ID: [id number] [address] [place], [place], [address] LOINC: 4548-4 Test Value Unit Reference Range Code Code System Flag Hgb A1c 7.5 % L=3.8 H=5.7 4548-4 LOINC H MEAN BLOOD GLUCOSE 164 mg/dL 09494-4 LOINC Social History Type Status Start Date End Date Code Code Syst em Smoking History Never smoker (Never Smoked) 562319091 SNOMED CT Sex Male Medications Medication Start Date End Date Route Frequency Dose Code Code System Medication Instructions Home Meds Clindamycin 150MG Oral Capsule 10/07/2023 12/10/2023 ORAL THREE TIMES A DAY 3 CAPSULE 077125 RxNorm TAKE 3 CAPSULE ORAL THREE TIMES A DAY Assessment You had the following problems:DIABETES TYPE [facility] Discharge Instructions Should you have any questions prior to discharge, please contact a member of your healthcare team. If you have left the hospital and have any questions, please contact your primary care physician. Reason For Referral No Data Found Problems Problem Start Date Resolved Date Status Code Code System DIABETES TYPE I active 16751074 SNOM ED-CT HTN active 28949826 SNOMED-CT HIGH CHOLESTEROL active 77496429 SNO MED-CT Allergies and Adverse Reactions Allergy [...] tem Type 2 diabetes mellitus without complication 02/23/19 23 750263960 SNOMED-CT Personal Care Team Section Performer Name Performer Role Active Date Inactive Da sharri
--- OUTSIDE RECORDS SUMMARY | 2024-02-20 17:19 | XMS_ITS ---
Author Organization Unknown Address [address] [place] [address] [phone] Phone Care Team Providers Care Sole Painter Name Role Phone MELISSA Johnson Attending Unavailable Results THYROID TESTING CASCADE* - C ollect Date/Time: 10/06/2021 10:08 [facility] ID: [id number] - [id number] [address] [place] [address], 5[address] LOINC: 3016-3 Test Value Unit Reference Range Code Code System Flag TSH. 2.635 uIU/mL L=0.360 H=3.740 3014-8 LOINC BASIC METABOLIC PANEL (BMP) - Collect Date/Time: 10/06/2021 10:08 [facility] ID: [id number] [address] [place] [address], 5[address] LOINC: 84365-8 Test Value Unit Reference Range Code Code System Flag GLUCOSE 148 mg/dL L=70 H=116 2345-7 LOINC H BUN 18 mg/dL L=6 H=25 3094-0 LOINC CREATININE 0.94 mg/dL L=0.67 H=1.17 2160-0 LOINC SODIUM SERUM 139 mmol/L L=136 H=145 2951-2 LOINC POTASSIUM SERUM 4.5 mmol/L L=3.4 H=5.2 2823-3 LOINC CHLORIDE SERUM 101 mmol/L L=96 H=110 2075-0 LOINC CARBON DIOXIDE (CO2) 32 mmol/L L=22 H=34 2028-9 LOINC ANION GAP 6.3 mmol/L 71379-6 LOINC CALCIUM SERUM 9.1 mg/dL L=8.2 H=10.2 23889-2 LOINC AGE 41 years eGFR (non-Afr.Amer.) 89 mL/min 46696-7 LOINC eGFR (Afr-Peruvian) 108 mL/min 37868-1 LOINC CBC W/ DIFFERENTIAL* - Colle ct Date/Time: 10/06/2021 10:08 [facility] ID: [id number] [address], [place], [address] LOINC: 89618-8 Test Value Unit Reference Range Code Code System Flag WBC 6.44 th/cmm L=5.00 H=10.00 6690-2 LOINC NEUT % 65.7 % L=40.0 H=80.0 LYMPH % 22.7 % L=10.0 H=50.0 MONO % 8.4 % L=2.0 H=12.0 11249-5 LOINC EOS % 1.6 % L=0.0 H=8.0 BASO % 0.8 % L=0.0 H=3.0 IG % 0.8 % L=0.0 H=1.1 2514-8 LOINC NRBC % 0.0 % L=0.0 H=0.0 76062-1 LOINC NEUT abs count 4.2 th/cmm L=1.6 H=8.4 751-8 LOINC LYMPH abs count 1.5 th/cmm L=1.5 H=4.0 731-0 LOINC MONO abs count 0.5 th/cmm L=0.2 H=1.0 742-7 LOINC EOS abs count 0.1 th/cmm L=0.0 H=0.5 711-2 LOINC BASO abs count 0.1 th/cmm L=0.0 H=0.2 704-7 LOINC IG abs count 0.1 th/cmm L=0.0 H=0.1 07146-4 LOINC NRBC abs count 0.0 mil/cmm L=0.0 H=0.0 38220-0 LOINC RBC 6.01 mil/cmm L=4.30 H=6.20 789-8 LOINC HEMOGLOBIN 17.6 gm/dL L=13.0 H=17.0 718-7 LOINC H HEMATOCRIT 51 % L=45 H=52 4544-3 LOINC MCV 85 fL L=82 H=92 787-2 LOINC MCH 29.3 pg L=27.0 H=31.0 785-6 LOINC MCHC 34.4 % L=32.0 H=36.0 786-4 LOINC RDW-SD 41.6 fL L=39.0 H=49.0 788-0 LOINC PLATELET COUNT 183 th/cmm L=150 H=450 777-3 LOINC URINALYSIS ROUTINE* - [facility] t Date/Time: 10/06/2021 10:08 [facility] ID: [id number] [address], [place], [address] LOINC: Test Value Unit Reference Range Code Code System Flag COLLECTION MODE: CLEAN CATCH 95647-4 LOINC Color YELLOW yellow 5778-6 LOINC Appearance CLEAR clear 5767-9 LOINC Glucose urine >=1000 negative mg/dl 12132-4 LOINC A Bilirubin NEGATIVE negative 5770-3 LOINC Ketones NEGATIVE negative mg/dl 2514-8 LOINC Spec gravity 1.015 1.003 - 1.030 5811-5 LOINC pH urine 5.5 5.0 - 7.0 2756-5 LOINC Protein NEGATIVE negative mg/dl 22575-7 LOINC Urobilinogen 0.2 <or= 1 EU/dl 57150-1 LOINC Nitrite NEGATIVE negative 5802-4 LOINC Blood NEGATIVE negative 5794-3 LOINC Leukocytes NEGATIVE negative 52220-6 LOINC MICROSCOPIC* NOT INDICAT Social History Type Status Start Date End Date Code Code Syst em Smoking History Never smoker (Never Smoked) 876489733 SNOMED CT Sex Male Medications Medication Start Date End Date Route Frequency Dose Code Code System Medication Instructions Home Meds Clindamycin 150MG Oral Capsule 10/07/2023 12/10/2023 ORAL THREE TIMES A DAY 3 CAPSULE 19740218 RxNorm TAKE 3 CAPSULE ORAL THREE TIMES A DAY Assessment You had the following problems:DIABETES TYPE [facility] Discharge Instructions Should you have any questions prior to discharge, please contact a member of your healthcare team. If you have left the hospital and have any questions, please contact your primary care physician. Reason For Referral No Data Found Problems Problem Start Date Resolved Date Status Code Code System DIABETES TYPE I active 58986807 SNOM ED-CT HTN active 74100482 SNOMED-CT HIGH CHOLESTEROL active 95170021 SNO MED-CT Allergies and Adverse Reactions Allergy Substance Reaction Severity Start Date Concern Status Co de Code System CLINDAMYCIN RASH (SNOMED-CT: null) Active 0999 RxNorm Plan of Treatment Exposure 01/25/2020 Exposure [...] Date Code Code Sys tem Bipolar disorder 10/06/2021 74758767 SNOMED-CT Personal Care Team Section Performer Name Performer Role Active Date Inactive Da sharri
--- OUTSIDE RECORDS SUMMARY | 2024-02-20 17:20 | XMS_ITS ---
Author Organization Unknown Address [address] [place] [address] [phone] Phone Care Team Providers Care Gis Programmer Name Role Phone CRICKET Patel Attending Unavailable Results XR C SPINE 4V OR 5V - Comple ayla: 12/05/2022 09:29 LOINC: [facility] [place], [place] [address] PACS DIRECT SUPPORT PROFESSIONAL CAREGIVER REPORT Patient Name: YAYA GUDINO MRN: Sex: : Age: [id number] M [id number] Account: Accession: Admit: StayType: [id number] 12/05/2022 O/P Ordered: Order ID: Submitted: Ordering Provider: 12/05/2022 09:12 [id number] CLAYTON SOTO Completed: Technologist: Resulted: 12/05/2022 09:29 KMD 12/05/2022 09:31 Study Description: XR C SPINE 4V OR 5V Study Reason: RT ARM NUMBNESS 7 Views TECHNIQUE: 2D digital imaging was performed. COMPARISON: None FINDINGS: There is mild narrowing of the C5-6 and C6-7 disc bases. The remaining spaces are maintained. There are endplate osteophytes at C5-6 and C6-7. There are mild facet joint degenerative changes. No significant neural foraminal narrowing. Soft tissues are unremarkable. Impression: Mild degenerative disc changes at C5-6 and C6-7. Report Digitally Signed by Marguerite Dias on 12/05/2022 09:31 AM EDT Social History Type Status Start Date End Date Code Code Syst em Smoking History Never smoker (Never Smoked) 030515601 SNOMED CT Sex Male Medications Medication Start Date End Date Route Frequency Dose Code Code System Medication Instructions Home Meds Clindamycin 150MG Oral Capsule 10/07/2023 12/10/2023 ORAL THREE TIMES A DAY 3 CAPSULE 19740218 RxNorm TAKE 3 CAPSULE ORAL THREE TIMES A DAY Assessment You had the following problems:DIABETES TYPE [facility] Discharge Instructions Should you have any questions prior to discharge, please contact a member of your healthcare team. If you have left the hospital and have any questions, please contact your primary care physician. Reason For Referral No Data Found Problems Problem Start Date Resolved Date Status Code Code System DIABETES TYPE I active 53119965 SNOM ED-CT HTN active 06856399 SNOMED-CT HIGH CHOLESTEROL active 05900980 SNO MED-CT Allergies and Adverse Reactions Allergy [...] Start Date Code Code Sys tem Other cervical disc degeneration at C5-C6 level 2022 SNOMED-CT Personal Care Team Section Performer Name Performer Role Active Date Inactive Da te
--- OUTSIDE RECORDS SUMMARY | 2024-02-20 17:20 | XMS_ITS ---
Author Organization Unknown Address [address] [place] [address] [phone] Phone Care Team Providers Care Infant Nanny Name Role Phone ALANNA Rodriguez Attending Unavailable CRICKET Patel Primary Unavailable Social History Type Status Start Date End Date Code Code Syst em Smoking History Never smoker (Never Smoked) 841392830 SNOMED CT Sex Male Medications Medication Start Date End Date Route Frequency Dose Code Code System Medication Instructions Home Meds Clindamycin 150MG Oral Capsule 10/07/2023 12/10/2023 ORAL THREE TIMES A DAY 3 CAPSULE 196850 RxNorm TAKE 3 CAPSULE ORAL THREE TIMES A DAY Assessment You had the following problems:DIABETES TYPE [facility] Discharge Instructions Should you have any questions prior to discharge, please contact a member of your healthcare team. If you have left the hospital and have any questions, please contact your primary care physician. Reason For Referral No Data Found Problems Problem Start Date Resolved Date Status Code Code System DIABETES TYPE I active 68472945 SNOM ED-CT HTN active 48630601 SNOMED-CT HIGH CHOLESTEROL active 80883501 SNO MED-CT Allergies and Adverse Reactions Allergy Substance Reaction Severity Start Date Concern Status Co de Code System CLINDAMYCIN RASH (SNOMED-CT: null) Active 3582 RxNorm Plan of Treatment Exposure 01/25/2020 Exposure [...] Diagnosis Start Date Code Code Sys tem Pain in left shoulder 02/20/2023 SNOMED -CT Personal Care Team Section Performer Name Performer Role Active Date Inactive Da te
--- OUTSIDE RECORDS SUMMARY | 2024-02-20 17:20 | XMS_ITS ---
Author Organization Unknown Address [address] [place] [address] [phone] Phone Care Team Providers Care Law Firm Partner Name Role Phone CRICKET Patel Attending Unavailable Social History Type Status Start Date End Date Code Code Syst em Smoking History Never smoker (Never Smoked) 268702946 SNOMED CT Sex Male Medications Medication Start Date End Date Route Frequency Dose Code Code System Medication Instructions Home Meds Clindamycin 150MG Oral Capsule 10/07/2023 12/10/2023 ORAL THREE TIMES A DAY 3 CAPSULE 372335 RxNorm TAKE 3 CAPSULE ORAL THREE TIMES A DAY Assessment You had the following problems:DIABETES TYPE [facility] Discharge Instructions Should you have any questions prior to discharge, please contact a member of your healthcare team. If you have left the hospital and have any questions, please contact your primary care physician. Reason For Referral No Data Found Problems Problem Start Date Resolved Date Status Code Code System DIABETES TYPE I active 94186378 SNOM ED-CT HTN active 21596805 SNOMED-CT HIGH CHOLESTEROL active 87770586 SNO MED-CT Allergies and Adverse Reactions Allergy [...] Diagnosis Start Date Code Code Sys tem Anesthesia of skin 12/05/2022 SNOMED-CT Personal Care Team Section Performer Name Performer Role Active Date Inactive Da te
--- OUTSIDE RECORDS SUMMARY | 2024-02-20 17:20 | XMS_ITS ---
Author Organization Unknown Address [address] [place] [phone] Phone Care Team Providers Care Supervisor Varnish Name Role Phone JACQUELYN BHATT Registered Nurse Unavailable ELIZABETH Bush Attending Unavailable ELIAS [facility] Unavailable CRICKET Patel Primary Unavailable UNLISTED PROVIDER - REQUESTED Xhandoff Un available Results NOVA GLUCOSE FINGER HEEL CAP ILLARY - Collect Date/Time: 01/08/2023 12:31 [facility] ID: [id number] [address] [place] [address], [id number] LOINC: 17034-5 Test Value Unit Reference Range Code Code System Flag GLUCOSE CAP 104 mg/dL L=70 H=116 28504-8 LOINC XR SHOULDER 2V OR MORE LT* - Completed: 01/08/2023 11:41 LOINC: [facility] RADIOLOGY [place], [place] [address] PACS REFINERY OPERATOR POLYMERIZATION PLANT REPORT Patient Name: YAYA GUDINO MRN: Sex: : Age: [id number] M [id number] Account: Accession: Admit: StayType: [id number] 01/08/2023 E/R Ordered: Order ID: Submitted: Ordering Provider: 01/08/2023 11:28 [id number] ZACKERY SMITH Completed: Technologist: Resulted: 01/08/2023 11:41 KMD 01/08/2023 12:17 Study Description: XR SHOULDER 2V OR MORE LT Study Reason: Trauma Technique: 2D digital imaging was performed. 4 images were obtained. COMPARISON: Comparison is made with prior examinations. FINDINGS: Bones: No acute fractures present. No bony destructive lesion is seen. Joints: No dislocation is present. There are mild degenerative changes seen at the glenohumeral and acromioclavicular joint. Soft tissues: Unremarkable. IMPRESSION: Mild degenerative changes in the left shoulder. Report Digitally Signed by Zackery Plascencia on 01/08/2023 12:17 PM EST Social History Type Status Start Date End Date Code Code Syst em Smoking History Never smoker (Never Smoked) 260764809 SNOMED CT Sex Male Vital Signs Vital Sign Value Unit Solo Value Solo Unit Date/Time Recent/Initial? Code Code System Body Mass Index 41.84 kg/m2 01/08/2023 11:22 Initial 67965 -5 LOINC Systolic Blood Pressure 116 mm[Hg] 01/08/2023 11:22 Initial 8480- 6 LOINC Diastolic Blood Pressure 75 mm[Hg] 01/08/2023 11:22 Initial 8462- 4 LOINC Body Surface Area 2.61 m2 01/08/2023 11:22 Initial 3140- 1 LOINC Height 180.340 0 cm 71.00 in 01/08/2023 11:22 Initial 8302- 2 LOINC O2 Saturation 100 % 2022 11:22 Initial 91584 -5 LOINC Pulse 83.0 /min 01/08/2023 11:22 Initial 8867- 4 LOINC Respiration 16 /min 01/09/20 11:22 Initial 9279- 1 LOINC Temperature 36.3 Saskia 97.3 F 01/09/20 11:22 Initial 8310- 5 LOINC Weight 136.08 kg 300.00 lbs 01/08/2023 11:22 Initial 45725 -7 LOINC Medications Medication Start Date End Date Route Frequency Dose Code Code System Medication Instructions Home Meds Clindamycin 150MG Oral Capsule 10/07/2023 12/10/2023 ORAL THREE TIMES A DAY 3 CAPSULE [id number] RxNorm TAKE 3 CAPSULE ORAL THREE TIMES A DAY Assessment You had the following problems:DIABETES TYPE [facility] Discharge Instructions Should you have any questions prior to discharge, please contact a member of your healthcare team. If you have left the hospital and have any questions, please contact your primary care physician. Reason For Referral No Data Found Problems Problem Start Date Resolved Date Status Code Code System DIABETES TYPE I active 30284812 SNOM ED-CT HTN active 96374609 SNOMED-CT HIGH CHOLESTEROL active 18395576 SNO MED-CT Allergies and Adverse Reactions Allergy [...] Code Sys tem Pain in left shoulder 01/08/2023 SNOMED -CT Personal Care Team Section Performer Name Performer Role Active Date Inactive Da te
--- OUTSIDE RECORDS SUMMARY | 2024-02-20 17:21 | XMS_ITS ---
Author Organization Unknown Address [address] [place] [address] [phone] Phone Care Team Providers Care Oyster Shucker Name Role Phone HUNTER Barajas Attending Unavailable CRICKET Patel Primary Unavailable Social History Type Status Start Date End Date Code Code Syst em Smoking History Never smoker (Never Smoked) 640742421 SNOMED CT Sex Male Medications Medication Start Date End Date Route Frequency Dose Code Code System Medication Instructions Home Meds Clindamycin 150MG Oral Capsule 10/07/2023 12/10/2023 ORAL THREE TIMES A DAY 3 CAPSULE 715300 RxNorm TAKE 3 CAPSULE ORAL THREE TIMES A DAY Assessment You had the following problems:DIABETES TYPE [facility] Discharge Instructions Should you have any questions prior to discharge, please contact a member of your healthcare team. If you have left the hospital and have any questions, please contact your primary care physician. Reason For Referral No Data Found Problems Problem Start Date Resolved Date Status Code Code System DIABETES TYPE I active 34551502 SNOM ED-CT HTN active 71465445 SNOMED-CT HIGH CHOLESTEROL active 77428112 SNO MED-CT Allergies and Adverse Reactions Allergy [...] Diagnosis Start Date Code Code Sys tem 06/19/2023 [id number] SNOMED-CT Personal Care Team Section Performer Name Performer Role Active Date Inactive Da te
--- OUTSIDE RECORDS SUMMARY | 2024-02-20 17:21 | XMS_ITS ---
Author Organization Unknown Address [address] [place] [address] [phone] Phone Care Team Providers Care Desizing Pad Operator Name Role Phone HUNTER Barajas Attending Unavailable CRICKET Patel Primary Unavailable Social History Type Status Start Date End Date Code Code Syst em Smoking History Never smoker (Never Smoked) 386711546 SNOMED CT Sex Male Medications Medication Start Date End Date Route Frequency Dose Code Code System Medication Instructions Home Meds Clindamycin 150MG Oral Capsule 10/07/2023 12/10/2023 ORAL THREE TIMES A DAY 3 CAPSULE 738041 RxNorm TAKE 3 CAPSULE ORAL THREE TIMES A DAY Assessment You had the following problems:DIABETES TYPE [facility] Discharge Instructions Should you have any questions prior to discharge, please contact a member of your healthcare team. If you have left the hospital and have any questions, please contact your primary care physician. Reason For Referral No Data Found Problems Problem Start Date Resolved Date Status Code Code System DIABETES TYPE I active 96791700 SNOM ED-CT HTN active 05102430 SNOMED-CT HIGH CHOLESTEROL active 86174596 SNO MED-CT Allergies and Adverse Reactions Allergy [...] Diagnosis Start Date Code Code Sys tem 05/15/2023 28270741230805104 SNOMED-CT Personal Care Team Section Performer Name Performer Role Active Date Inactive Da te
--- OUTSIDE RECORDS SUMMARY | 2024-02-20 17:21 | XMS_ITS ---
Author Organization Unknown Address [address] [place] [phone] Phone Care Team Providers Care Observer Electrical Prospecting Name Role Phone JOSE Patel Attending Unavailable CRICKET Patel Primary Unavailable Social History Type Status Start Date End Date Code Code Syst em Smoking History Never smoker (Never Smoked) 040512539 SNOMED CT Sex Male Medications Medication Start Date End Date Route Frequency Dose Code Code System Medication Instructions Home Meds Clindamycin 150MG Oral Capsule 10/07/2023 12/10/2023 ORAL THREE TIMES A DAY 3 CAPSULE 881736 RxNorm TAKE 3 CAPSULE ORAL THREE TIMES A DAY Assessment You had the following problems:DIABETES TYPE [facility] Discharge Instructions Should you have any questions prior to discharge, please contact a member of your healthcare team. If you have left the hospital and have any questions, please contact your primary care physician. Reason For Referral No Data Found Problems Problem Start Date Resolved Date Status Code Code System DIABETES TYPE I active 09390230 SNOM ED-CT HTN active 32574828 SNOMED-CT HIGH CHOLESTEROL active 11620783 SNO MED-CT Allergies and Adverse Reactions Allergy Substance Reaction Severity Start Date Concern Status Co de Code System CLINDAMYCIN RASH (SNOMED-CT: null) Active 1532 RxNorm Plan of Treatment Exposure 01/25/2020 Exposure [...] Diagnosis Start Date Code Code Sys tem 07/15/2023 37320551524236244 SNOMED-CT Personal Care Team Section Performer Name Performer Role Active Date Inactive Da te
--- OUTSIDE RECORDS SUMMARY | 2024-02-20 17:21 | XMS_ITS ---
Author Organization Unknown Address [address] [place] [address] [phone] Phone Care Team Providers Care Behavioral Geneticist Name Role Phone CRICKET Patel Attending Unavailable Social History Type Status Start Date End Date Code Code Syst em Smoking History Never smoker (Never Smoked) 437842310 SNOMED CT Sex Male Medications Medication Start Date End Date Route Frequency Dose Code Code System Medication Instructions Home Meds Clindamycin 150MG Oral Capsule 10/07/2023 12/10/2023 ORAL THREE TIMES A DAY 3 CAPSULE 605505 RxNorm TAKE 3 CAPSULE ORAL THREE TIMES A DAY Assessment You had the following problems:DIABETES TYPE [facility] Discharge Instructions Should you have any questions prior to discharge, please contact a member of your healthcare team. If you have left the hospital and have any questions, please contact your primary care physician. Reason For Referral No Data Found Problems Problem Start Date Resolved Date Status Code Code System DIABETES TYPE I active 32961763 SNOM ED-CT HTN active 78801184 SNOMED-CT HIGH CHOLESTEROL active 03257652 SNO MED-CT Allergies and Adverse Reactions Allergy [...] Code Sys tem Pain in left shoulder 07/04/2023 SNOMED -CT Personal Care Team Section Performer Name Performer Role Active Date Inactive Da te
--- OUTSIDE RECORDS SUMMARY | 2024-02-20 17:22 | XMS_ITS | Encounter Summary ---
Author Organization [facility] Address [facility] [place] [address] Care Team Providers Care Cell Feed Department Supervisor Name Role Phone Unavailable Primary Care Provider Unavailabl e Encounter Details Date Type Department Care Team (Late st Contact Info) Description 12/10/2023 Interpretation Only [facility] in [facility] [address] [place] [address] Andriy Conley MD [address] [place] [address] Social History Tobacco Use Types Packs/Day Years Used Date Smoking Tobacco: Never Assessed Sex and Gender Information Value Date Recorded Sex Assigned at Not on file Gender Identity Not on file Sexual Orientation Not on file documented as of this encounter Plan of Treatment Not on file documented as of this encounter Procedures Procedure Name Priority Date/Time Associated Diagnosis Comments MRI UPPER EXTREMITY JOINT WWO CONTRAST RIGHT STAT 12/10/2023 1:16 PM EDT documented in this encounter Results * MRI UPPER EXTREMITY JOINT WWO CONTRAST RIGHT (12/10/2023 1:16 PM EDT) PT CLASS E RAD ADMITDTTM [id number] RAD PT RAD INFO [id number]^OCONNO R^ANDRIY RAD EXAM DESC MRUEJWWOR^MR UPPER EXT ANY JOINT RT WWO CONTRAST^RIS RAD WORKSTATION ID [id number] RAD Anatomical Region Laterality Modality Other Impressions 12/10/2023 1:43 PM EDT Open wound of the volar right wrist with mild, expected granulation tissue enhancement. No abscess, tenosynovitis or flexor tendon discontinuity. No MRI finding of deep fascial infection of the hand or distal forearm. Median nerve enlargement is consistent with chronic sequela of carpal tunnel syndrome. Thank you for letting us participate in the care of this patient. ??If you are a health care provider and have any questions regarding this report, please contact the number below. ??For patients who have questions please contact the health certified caregiver that requested your imaging first. ? Electronically signed by: Chasity Martinez MD, [facility] ([phone]), at 12/10/2023 1:43 PM Narrative 12/10/2023 1:43 PM EDT EXAMINATION: MR UPPER EXT ANY JOINT RT WWO CONTRAST CLINICAL HISTORY: ??Reason MRI Extrem: ??Pain ??Add'l Info: infection ant right wrist- open wound Additional technologist information: Carpal tunnel release August 2023, Nov . September 2023-debridement. Markers is superior/inferior of open wound. There are difficult position for patient due to body habitus. TECHNIQUE: Noncontrast MRI of the right wrist is performed with axial T1, T2 FS, VIBE FS; coronal STIR and sagittal T1 and STIR sequences. Following the intravenous administration of 20 mL Dotarem contrast, 3-plane VIBE FS sequences are acquired. COMPARISON: Targeted volar right wrist ultrasound October 08, 2023 FINDINGS: Motion artifact on the coronal and axial STIR sequences limits detailed evaluation, but the exam is overall diagnostic. Symptom markers proximal and distal to the volar open wound, extending from distal radial diaphysis to the proximal metacarpals: -Expected release of the flexor retinaculum. -Flexor tendons are intact with normal morphology. -Mild, minimally enhancing edema within the volar soft tissues and around flexor tendons. -No localized/rim-enhancing fluid collection. -No edema or abnormal enhancement along the deep fascial planes of hand or distal forearm. -Mild enlargement of median nerve with normal signal. Bones are intact with normal marrow signal. No erosion or periostitis. Preserved joint spacing and alignment. No effusion or abnormal synovial enhancement. Normal course, signal and morphology of the extensor tendons. Distal forearm and intrinsic hand muscles are normal. Survey of the intrinsic and extrinsic wrist ligaments is normal. Aside from the mild median nerve enlargement, neurovascular structures have normal course, caliber and signal. Procedure Note Chasity Martinez MD - 12/10/2023 EXAMINATION: MR UPPER EXT ANY JOINT RT WWO CONTRAST CLINICAL HISTORY: Reason MRI Extrem: Pain Add'l Info: infection antright wrist- open wound Additional technologist information: Carpal tunnel release August 2023,Nov . September 2023-debridement. Markers is superior/inferior of openwound. There are difficult position for patient due to body habitus. TECHNIQUE: Noncontrast MRI of the right wrist is performed with axial T1, T2 FS, VIBEFS; coronal STIR and sagittal T1 and STIR sequences. Following theintravenous administration of 20 mL Dotarem contrast, 3-plane VIBE FS sequences are acquired. COMPARISON: Targeted volar right wrist ultrasound October 08, 2023 FINDINGS: Motion artifact on the coronal and axial STIR sequences limits detailed evaluation, but the exam is overall diagnostic. Symptom markers proximal and distal to the volar open wound, extendingfrom distal radial diaphysis to the proximal metacarpals: -Expected release of the flexor retinaculum. -Flexor tendons are intact with normal morphology. -Mild, minimally enhancing edema within the volar soft tissues and aroundflexor tendons. -No localized/rim-enhancing fluid collection. -No edema or abnormal enhancement along the deep fascial planes of handor distal forearm. -Mild enlargement of median nerve with normal signal. Bones are intact with normal marrow signal. No erosion or periostitis. Preserved joint spacing and alignment. No effusion or abnormal synovial enhancement. Normal course, signal and morphology of the extensor tendons. Distalforearm and intrinsic hand muscles are normal. Survey of the intrinsic and extrinsic wrist ligaments is normal. Aside from the mild median nerve enlargement, neurovascular structureshave normal course, caliber and signal. IMPRESSION Open wound of the volar right wrist with mild, expected granulationtissue enhancement. No abscess, tenosynovitis or flexor tendon discontinuity. NoMRI finding of deep fascial infection of the hand or distal forearm. Mediannerve enlargement is consistent with chronic sequela of carpal tunnelsyndrome. Thank you for letting us participate in the care of this patient. If youare a health care provider and have any questions regarding this report,please contact the number below. For patients who have questions please contactthe health certified caregiver that requested your imaging first. Electronically signed by: Chasity Martinez MD, [facility]([phone]), at 12/10/2023 1:43 PM Andriy Conley MD PACS IMAGES documented in this encounter Visit Diagnoses Not on filedocumented in this encounter
--- OUTSIDE RECORDS SUMMARY | 2024-02-20 17:22 | XMS_ITS | Encounter Summary ---
[place] [address] Care Team Providers Care Machine Sizer Name Role Phone Unavailable Primary Care Provider Unavailabl e Encounter Details Date Type Department Care Team (Late st Contact Info) Description 12/13/2023 Interpretation Only [facility] in [facility] [address] [place] [address] Edmundo Ross MD [address] [place] [address] Social History Tobacco Use Types Packs/Day Years Used Date Smoking Tobacco: Never Assessed Sex and Gender Information Value Date Recorded Sex Assigned at Not on file Gender Identity Not on file Sexual Orientation Not on file documented as of this encounter Plan of Treatment Not on file documented as of this encounter Visit Diagnoses Not on filedocumented in this encounter
--- OUTSIDE RECORDS SUMMARY | 2024-02-20 17:22 | XMS_ITS | Encounter Summary ---
Author Organization [facility] Mabel whipple [place] [phone] Care Team Providers Care Insole Taper Name Role Phone Unavailable Primary Care Provider Unavailabl e Encounter Details Date Type Department Care Team (Late st Contact Info) Description 12/16/2023 Interpretation Only [facility] in [facility] [address] [place] [address] Edmundo Ross MD [address] [place] [address] Social History Tobacco Use Types Packs/Day Years Used Date Smoking Tobacco: Never Assessed Sex and Gender Information Value Date Recorded Sex Assigned at Not on file Gender Identity Not on file Sexual Orientation Not on file documented as of this encounter Plan of Treatment Not on file documented as of this encounter Procedures Procedure Name Priority Date/Time Associated Diagnosis Comments XR CHEST ONE VIEW Routine 12/16/2023 11: 41 AM EST documented in this encounter Results * XR Chest One View (12/16/2023 11:41 AM EST) PT CLASS I RAD ADMITDTTM [id number] RAD PT RAD INFO [id number]^MCLAUG HLIN^EDMUNDO^S RAD EXAM DESC XCXR1^XR CHEST PORTABLE OR 1V^RIS RAD WORKSTATION ID [id number] RAD Anatomical Region Laterality Modality Chest N/A Radiographic Jennyfer ging Impressions 12/16/2023 12:22 PM EST Satisfactory placement of right upper extremity PICC. Thank you for letting us participate in the care of this patient. ??If you are a health care provider and have any questions regarding this report, please contact the number below. ??For patients who have questions please contact the health pet care worker that requested your imaging first. ? Electronically signed by: Carlton Mensah MD, [facility] ??([phone]), at 12/16/2023 12:22 PM Narrative 12/16/2023 12:22 PM EST EXAMINATION: XR CHEST PORTABLE OR 1V CLINICAL HISTORY: ??Reason for Chest: ??Line Placement ??Add'l Info: will call from [facility] TECHNIQUE: AP view of the chest COMPARISON: Chest radiograph 10/01/2023 FINDINGS: Right upper extremity PICC with catheter tip extending to the superior cavoatrial junction. The contours of the cardiomediastinal silhouette are within normal limits. No pneumothorax or pleural effusion. Procedure Note Carlton Mensah MD - 12/16/2023 EXAMINATION: XR CHEST PORTABLE OR 1V CLINICAL HISTORY: Reason for Chest: Line Placement Add'l Info: willcall from [facility] TECHNIQUE: AP view of the chest COMPARISON: Chest radiograph 10/01/2023 FINDINGS: Right upper extremity PICC with catheter tip extending to the superior cavoatrial junction. The contours of the cardiomediastinal silhouette are within normal limits.No pneumothorax or pleural effusion. IMPRESSION Satisfactory placement of right upper extremity PICC. Thank you for letting us participate in the care of this patient. If youare a health care provider and have any questions regarding this report,please contact the number below. For patients who have questions please contactthe health pet care worker that requested your imaging first. Electronically signed by: Carlton Mensah MD, [facility]([phone]), at 12/16/2023 12:22 PM Edmundo Ross MD IMG DX ORDERABLES documented in this encounter Visit Diagnoses Not on filedocumented in this encounter
--- OUTSIDE RECORDS SUMMARY | 2024-02-20 17:22 | XMS_ITS ---
Author Organization Unknown Address [address] [place] [address] [phone] Phone Care Team Providers Care Medical Insurance Claims Specialist Name Role Phone JOSE Patel Attending Unavailable Social History Type Status Start Date End Date Code Code Syst em Smoking History Never smoker (Never Smoked) 442409970 SNOMED CT Sex Male Medications Medication Start Date End Date Route Frequency Dose Code Code System Medication Instructions Home Meds Clindamycin 150MG Oral Capsule 10/07/2023 12/10/2023 ORAL THREE TIMES A DAY 3 CAPSULE 835041 RxNorm TAKE 3 CAPSULE ORAL THREE TIMES A DAY Assessment You had the following problems:DIABETES TYPE [facility] Discharge Instructions Should you have any questions prior to discharge, please contact a member of your healthcare team. If you have left the hospital and have any questions, please contact your primary care physician. Reason For Referral No Data Found Problems Problem Start Date Resolved Date Status Code Code System DIABETES TYPE I active 39730053 SNOM ED-CT HTN active 86815807 SNOMED-CT HIGH CHOLESTEROL active 12012772 SNO MED-CT Allergies and Adverse Reactions Allergy [...] Diagnosis Start Date Code Code Sys tem 08/06/2023 [id number] SNOMED-CT Personal Care Team Section Performer Name Performer Role Active Date Inactive Da te
--- OUTSIDE RECORDS SUMMARY | 2024-02-20 17:22 | XMS_ITS | Clinical Summary ---
[place] [address] Care Team Providers Care Sea Foam Kiss Maker Name Role Phone Unavailable Primary Care Provider Unavailabl e Encounters Date Type Department Care Team Description 12/16/2023 Interpretation Only [facility] in [address] [phone] Edmundo Ross MD 12/13/2023 Interpretation Only [facility] in [address] [phone] Edmundo Ross MD 12/10/2023 Interpretation Only [facility] in [address] [phone] Andriy Conley MD 12/10/2023 Interpretation Only [facility] in [address] [phone] Unknown from Last 3 Months Social History Tobacco Use Types Packs/Day Years Used Date Smoking Tobacco: Never Assessed Sex and Gender Information Value Date Recorded Sex Assigned at Not on file Gender Identity Not on file Sexual Orientation Not on file Plan of Treatment Health Maintenance Due Date Last Done Comments HIV screen 1999 Hepatitis C Screening 1999 Lipid Screening 1999 Hepatitis B vaccine (0-59 yrs) (1) 2000 Tetanus/Diphtheria/Pertussis Vaccines (1 - Tdap) 03/29 Covid-19 Vaccine ( - 2023- season) 2023 Influenza (Flu) vaccine (1 o f 1 - Influenza standard series) 10/13/2023 Procedures Procedure Name Priority Date/Time Associated Diagnosis Comments XR CHEST ONE VIEW Routine 12/16/2023 11: 41 AM EST MRI UPPER EXTREMITY JOINT WWO CONTRAST RIGHT STAT 12/10/2023 1:16 PM EDT from Last 3 Months Results * XR Chest One View (12/16/2023 11:41 AM EST) PT CLASS I RAD ADMITDTTM [id number] RAD PT RAD INFO [id number]^MCLAUG HLIN^EDMUNDO^S RAD EXAM DESC XCXR1^XR CHEST PORTABLE OR 1V^RIS [facility] WORKSTATION ID [id number] [facility] Anatomical Region Laterality Modality Chest N/A Radiographic Jennyfer ging Impressions 12/16/2023 12:22 PM EST Satisfactory placement of right upper extremity PICC. Thank you for letting us participate in the care of this patient. ??If you are a health care provider and have any questions regarding this report, please contact the number below. ??For patients who have questions please contact the health toddler caregiver that requested your imaging first. ? Narrative 12/16/2023 12:22 PM EST EXAMINATION: XR [...] patients who have questions please contactthe health toddler caregiver that requested your imaging first. Edmundo Ross MD IMG DX ORDERABLES * MRI UPPER EXTREMITY JOINT WWO CONTRAST RIGHT (12/10/2023 1:16 PM EDT) PT CLASS E RAD ADMITDTTM [id number] [facility] PT [facility] INFO [id number]^OCONNO R^ANDRIY RAD EXAM DESC MRUEJWWOR^MR UPPER EXT ANY JOINT RT WWO CONTRAST^RIS [facility] WORKSTATION ID [id number] [facility] Anatomical Region Laterality Modality Other Impressions 12/10/2023 [...] who have questions please contact the health toddler caregiver that requested your imaging first. ? Electronically signed by: Chasity Martinez MD, [facility] ([phone]), at 12/10/2023 1:43 PM Narrative 12/10/2023 1:43 [...] patients who have questions please contactthe health toddler caregiver that requested your imaging first. Andriy Conley MD PACS IMAGES from Last 3 Months
--- OUTSIDE RECORDS SUMMARY | 2024-02-20 17:22 | XMS_ITS ---
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 Code Code System Systolic Blood Pressure 122 mm[Hg] 08/20/2023 10:53 Initial 8480-6 [facility] Diastolic Blood Pressure 77 mm[Hg] 08/20/2023 10:53 Initial 8462-4 [facility] O2 Saturation 93 % 2023 10:53 Initial 17444- 5 [facility] Pulse 78.0 /min 08/20/2023 10:53 Initial 8867-4 [facility] Respiration 20 /min 08/20/19 24 10:53 Initial 9279-1 [facility] Temperature 2.7 Saskia 36.9 F 08/20/19 24 10:53 Initial 8310-5 [facility] Medications Medication Start Date End Date Route Frequency Dose Code Code System Medication Instructions Home Meds Clindamycin 150MG Oral Capsule 10/07/2023 12/10/2023 ORAL THREE TIMES A DAY 3 CAPSULE 182463 RxNorm TAKE 3 CAPSULE ORAL THREE TIMES A DAY Assessment You had the following problems:DIABETES TYPE [facility] Discharge Instructions Should you have any questions prior to discharge, please contact a member of your healthcare team. If you have left the hospital and have any questions, please contact your primary care physician. Reason For Referral No Data Found Procedures Procedure Name Date Status Code Code Viviana raymundo Neuroplasty &/Or Transpositi on; Median Nerve At Carpal Tunnel 08/20/2023 completed 98982 CPT Problems Problem Start Date Resolved Date Status Code Code System DIABETES TYPE I active 58468103 SNOM ED-CT HTN active 46480004 SNOMED-CT HIGH CHOLESTEROL active 25923014 SNO MED-CT Allergies and Adverse Reactions Allergy Substance Reaction Severity Start Date Concern Status Co de Code System CLINDAMYCIN RASH (SNOMED-CT: null) Active 3341 RxNorm Plan of Treatment Exposure 01/25/2020 Exposure [...] Diagnosis Start Date Code Code Sys tem Carpal tunnel syndrome, right upper limb 08/20/2023 SNOMED-CT Personal Care Team Section Performer Name Performer Role Active Date Inactive Da sharri
--- OUTSIDE RECORDS SUMMARY | 2024-02-20 17:22 | XMS_ITS ---
Author Organization Unknown Address [address] [place] [phone] Phone Care Team Providers Care Relationship Specialist Name Role Phone JOSE Patel Attending Unavailable ROSALIE Barajas Physician Ocean Lifeguard Specialist Unavailable CRICKET Patel Primary Unavailable Social History Type Status Start Date End Date Code Code Syst em Smoking History Never smoker (Never Smoked) [id number] SNOMED CT Sex Male Medications Medication Start Date End Date Route Frequency Dose Code Code System Medication Instructions Home Meds Clindamycin 150MG Oral Capsule 10/07/2023 12/10/2023 ORAL THREE TIMES A DAY 3 CAPSULE [id number] RxNorm TAKE 3 CAPSULE ORAL THREE TIMES A DAY Assessment You had the following problems:DIABETES TYPE [facility] Discharge Instructions Should you have any questions prior to discharge, please contact a member of your healthcare team. If you have left the hospital and have any questions, please contact your primary care physician. Reason For Referral No Data Found Procedures Procedure Name Date Status Code Code Viviana m Neuroplasty &/Or Transpositi on; Median Nerve At Carpal Tunnel 08/06/2023 completed 61826 CPT Problems Problem Start Date Resolved Date Status Code Code System DIABETES TYPE I active 95174319 SNOM ED-CT HTN active 71575354 SNOMED-CT HIGH CHOLESTEROL active 67238721 SNO MED-CT Allergies and Adverse Reactions Allergy [...] Code Code Sys tem Carpal tunnel syndrome, left upper limb 08/06/2023 SNOMED-CT Personal Care Team Section Performer Name Performer Role Active Date Inactive Da te
--- OUTSIDE RECORDS SUMMARY | 2024-02-20 17:23 | XMS_ITS | Encounter Summary ---
Author Organization [facility] Address [address] [place] [address] Care Team Providers Care Hotel Assistant Manager Name Role Phone Mariana Abel [facility] Primary Care Provider [phone] Reason for Referral * Referral (Routine/Next Available) - Authorization Not Required Specialty Diagnoses / Procedures Referred By Contact Referred To Contact General Surgery Diagnoses Gastroesophageal reflux disease, unspecified whether esophagitis present Procedures UPPER ENDOSCOPY (EGD) MS ESOPHAGOGASTRODUODENOSCOPY TRANSORAL DIAGNOSTIC MS EGD TRANSORAL BIOPSY SINGLE/MULTIPLE Lonnie Diallo MD [address] [place] [id number] Phone: tel:[phone] fax: Lonnie Diallo MD [address] [place] [id number] Phone: tel:[phone] fax:[phone] Referral ID Status Reason Start Date Expiration Date Visits Requested Visits Authorized [id number] Authorization Not Required 07/18/2023 1 1 * Radiology Services (Routine/Next Available) - Authorization Not Required Specialty Diagnoses / Procedures [facility] Referred To Contact Diagnoses Gastroesophageal reflux disease, unspecified whether esophagitis present Procedures FL BARIUM SWALLOW Lonnie Diallo MD [address] [place] [phone] Phone: tel: fax: [facility] Referral ID Status Reason Start Date Expiration Date Visits Requested Visits Authorized [id number] Authorization Not Required 07/18/2023 1 1 Reason for Visit * Reason Comments Obesity OBE Encounter Details Date Type Department Care Team (Latest Contact Info) Description 07/18/2023 14:15 EDT Office Visit [facility] Bariatric Surgery [facility] [address], [place] [id number] Lonnie Diallo MD [address] [place] [address] Gastroesophageal reflux disease, unspecified whether esophagitis present (Primary Dx) Social History Tobacco Use Types Packs/Day Years Used Date Smoking Tobacco: Never Smokeless Tobacco: Never Tobacco Cessation:Counseling Given: Not Answered Alcohol Use Standard Drinks/Week Comments Never 0 (1 standard drink = 0.6 oz pur e alcohol) AUDIT-C Answer Date Recorded Q1: How often do you have a drink containing alc ohol? Never 08/25/2019 Average Number of Drinks Not on file 020 Frequency of Binge Drinking Not on file 08/11 Interpersonal Safety Answer Date Record ed Physically Hurt Never 09/14/2019 Verbally Threaten Not on file 09/14/2019 Sex and Gender Information Value Date Recorded Sex Assigned at Male 01/01/2024 12:07 EST Legal Sex Male 22:06 EDT Gender Identity Male 05/17/2020 9:08 EDT Sexual Orientation Not on file documented as of this encounter Last Filed Vital Signs Vital Sign Reading Time Taken Comments Blood Pressure 128/77 07/18/2023 1400 EDT Pulse 99 07/18/2023 1400 EDT Temperature - - Respiratory Rate - - Oxygen Saturation - - Inhaled Oxygen Concentration - - Weight 144.9 kg (319 lb 6.4 oz) 07/18/2023 1400 EDT Height 180 cm (5' 10.87) 07/18/2023 1400 EDT Body Mass Index 44.72 07/18/2023 1400 EDT documented in this encounter Functional Status * Because of a physical, mental, or emotional condition, does this person have difficulty doing errands alone such as visiting a doctor's office or shopping? Answer Date of Assessment Author No 07/17/2019 15:41 EDT documented as of this encounter Mental Status * Because of a physical, mental, or emotional condition, does this person have serious difficulty concentrating, remembering, or making decisions? Answer Entry Date Author No 07/17/2019 15:41 EDT documented in this encounter Patient Instructions * Patient Instructions* Swathi Pearson - 07/18/2023 14:15 EDT Images from the original note were not included. You have been referred to [facility] Radiology for an Esophagram. To schedule this test please contact Radiology Scheduling at [phone] Option # 1, 4 Please check in with Level 3 Registration at the Main [place] of [facility] on: by: To prepare for this exam you will need to have no food or drink after midnight. This includes no gum, hard candy or smoking. This is a test that looks at the throat going down into the stomach. You will be given approximately 8 ounces of barium to drink prior to being scanned. This exam takes approximately 30 minutes. You are also scheduled for an upper endoscopy with Dr. Diallo on Saturday08/28/2023 Please check in at: 12:20pm If you are exhibiting any symptoms of respiratory illness or fevers within 5 days of your procedure, please reach out to the office to discuss. The office number is [phone]. Special instructions regarding the preparation for this procedure are enclosed. If your insurance has changed since your last visit at [facility] please call pre-registration and provide your updated information at [phone]. Check-In: 3rd floor Registration, [address] [facility] Check in time is ONE HOUR PRIOR to the scheduled appointment time. If you have questions or are unable to keep this appointment for any reason, please call the officeat [phone]. Thank you, Your Bariatrics Surgery Scheduling Team [phone] It is important to read this paperwork right away. You start to get ready for your upper endoscopy 7 days before you have it. Patient Instructions for Upper Endoscopy This handout will help you get ready for your upper endoscopy procedure. It has information about: Where to go for your procedure Preparing ahead of time for your procedure Diet instructions before your procedure Important: Please read this entire handout now. It has instructions that you will need to follow several days before your procedure: If you do not follow these instructions, your GI tract may not be cleaned out well enough for your doctor to perform the procedure. For this reason, your endoscopy may need to be rescheduled if you do not follow these instructions. If you have any questions, please call the Bariatric Clinic at [phone]. Where to go for your procedure: [facility] Endoscopy [address] [place] [address], [address] [place] [address] *Check in at registration on Level 3 (Main Lobby) Important things to do prior to your procedure: 7 days before procedure 1 day before procedure Day of procedure Review your medicines Arrange for a charter and tour bus driver for your procedure Stop any antacids, Carafate, sucralfate or any stomach coating products Do not eat any solid foods after midnight the night before your procedure, including chewing gum If your procedure is before 12:00 pm nothing to eat or drink after midnight. If your procedure is after 12:00 pm clear liquids only until 8 hours before your procedure. Then nothing to eat or drink. 7 Days Before Your Procedure Review your medications: Some medications should be stopped prior to your procedure. For patients using Semaglutide, Liraglutide or Dulaglutide- GLP-1 agonists such as Ozempic, Wegovy,Rybelsus, Monjaro or Trulicity please complete the following criteria: You must hold your injections for 7 days prior to EGD You must start a Clear Liquid Diet for one full day prior to EGD Failure to do so may result in your procedure results being incorrect or your procedure being cancelled. Insulin and Diabetes Medicines: Speak with the doctor who prescribes this medication about how to manage your insulin. You will be fasting for this procedure. Blood Thinners: Speak with the doctor who manages your blood thinners to determine when it is safe to stop and restart these medications including: Apixaban (Eliquis) Clopidogrel (Plavix) Dabigatran (Pradaxa) Dipyridamole (Aggrenox) Edoxaban (Savaysa) Enoxaparin (Lovenox) Fondaparinux (Arixtra) Heparin Prasugrel (Effient) Rivaroxaban (Xarelto) Ticagrelor (Brilinta) Warfarin (Coumadin) Our general recommendations for medications are included in the chart below and on the next page. Do not stop taking your blood thinning medicine without first talking to the doctor who prescribes this medicine. Medication Recommended time to stop Aspirin Continue Warfarin (Coumadin) Call the doctor who prescribes these medications to find out how to manage thembefore and after your procedure. Rivaroxaban (Xarelto) Apixaban (Eliquis) Dabigatran (Pradaxa) Edoxaban (Savaysa) Dipyridamole (Aggrenox) Clopidogrel (Plavix) Prasugrel (Effient) Ticagrelor (Brilinta) Heparin Enoxaparin (Lovenox) Fondaparinux (Arixtra) MAOI???s: Selegiline, Phenelzine, Tranylcypromine Call and report this to the Bariatric clinic Antacids (TUMS, rolaids, milk of magnesia, etc.), sucralfate (carafate) Stop 24 hours prior to procedure Omeprazole (Prilosec) Pantoprazole (Protonix) Esomeprazole (Nexium) Lansoprazole (Prevacid) Rabeprazole (Aciphex) Ranitidine (Zantac) Famotidine (Pepcid) Continue The Day Before Your Procedure Prepare for your procedure: STOP taking any antacids, sucralfate, Carafate, or any stomach coating products 24 hours before your procedure. Do not EAT any solid foods after midnight the night before your procedure. The Day of Your Procedure Prepare for your procedure: ARRANGE for a charter and tour bus driver to take you home after your procedure. TAKE your morning medications with small sips of water. If your procedure is before 12:00 pm nothing to eat or drink after midnight. If you procedure is after 12:00 pm you may have CLEAR LIQUIDS only up until 8 hours prior to your procedure. Then nothing to eat or drink. OKAY TO EAT OR DRINK DO NOT EAT OR DRINK Apple or white grape juice ANY RED/PURPLE COLORED FOODS/DRINKS Quan-Aid (not red/purple) ANY SOLID FOODS Sports Drinks (not red/purple) Dairy products (milk, yogurt, ice cream) Water Tea/Coffee with cream/creamer Black Coffee/Tea Dark colored soda (Dr. Delgado, oneyda) Clear soda (7-UP, Sprite or akua rafael) Gattman or grapefruit juice Popsicles (not red/purple) Beverages containing alcohol Hard Candies (not red/purple) Chocolate or caramel hard candies Creamer or non-dairy creamer NOTHING BY MOUTH 8 HOURS PRIOR TO YOUR PROCEDURE. Leave any valuables you might have at home. Remove all jewelry you are wearing. Arriving For Your Procedure: ARRIVE AT LEAST 1 HOUR prior to your procedure time to check in at Registration on the 3rd floor. You should check in at registration even if you have received a pre-screen phone call from the endoscopy office. Estimated time of stay after registration is approximately 2 hours. Your charter and tour bus driver must park and pick you up from the Endoscopy Suite ([facility], 4th floor). You are not permitted to walk unaccompanied to meet your ride at the front of the hospital. Please ensure that your charter and tour bus driver is on time, sedated patients can not be left unattended. What is an Upper GI Endoscopy? Also known as: Esophagogastroduodenoscopy; EGD; Upper Endoscopy; Gastroscopy An Upper GI endoscopy is an examination of the upper gastrointestinal (GI) tract using a specialized video camera called an endoscope. This instrument is inserted down the throat and shows images of the lining of the esophagus, stomach and upper duodenum. Why is an Upper GI Endoscopy Performed? This test can help diagnose and potentially treat: The cause of upper GI (gastrointestinal) bleeding The cause of swallowing difficulties, removal of foreign objects The presence of tumors or other abnormalities of the upper GI tract Inflammation, narrowing, or tumors of the esophagus Acid reflux, gastroesophageal reflux disease (GERD) How to Prepare See ???Patient Instructions for Upper Endoscopy?? How the test will feel: The local anesthetic makes your throat numb. This wears off shortly after the procedure. The endoscope may stimulate some gagging in the back of the throat. There may be a sensation of gas and the movement of the scope may be felt in the abdomen. Biopsies, if needed, cannot be felt. Because of the intravenous sedation, you may not feel any discomfort and may have no memory of the test. The Procedure Please arrive one hour prior to your scheduled procedure time. When you arrive at the [facility] please: Bring your medication list and tell the nurse about any drug allergies, medications you take regularly and any health problems (such as heart, breathing, sugar, or bleeding problems.) Change into a hospital gown. An intravenous (IV) line will be inserted into a vein in your arm. The IV will allow you to receivemedications and fluids for the procedure. After your arrival in the procedure room, you will: Be asked to remove dentures. Be asked to swallow a special type of paste that will numb your throat. This medication will help suppress the need to cough or gag when the endoscope is inserted. Receive medications through the IV, a combination of a sedative (relaxing) and narcotic (pain reliever). Be given a mouth guard to protect your teeth and the endoscope. Be instructed to lie on your left side. The endoscope will be advanced through the esophagus to the stomach and duodenum (the first part ofthe small intestine). The endoscope will not affect your breathing. Air will be introduced through the endoscope to enhance viewing. This may make you burp. The exam typically lasts about 5 minutes, depending on examination findings. After the test is completed, food and liquids will be restricted until your gag reflex returns. Theentire process, from the time you arrive to when you leave, is estimated at two hours. You will NOT be permitted to drive yourself home due to the sedative effects of medications given for the exam. Bring someone to drive you home. A contract driver is not acceptable. Risks of The Procedure There is a small chance of perforation (hole) of the stomach, duodenum, or esophagus or bleeding atthe biopsy site. A patient could have an adverse reaction to the medication. The overall risk is less than 1 out of 2,500 people. After The Procedure If any of these symptoms occur after the test, please contact our office at [phone]: Difficulty swallowing Fever or pain Black stools or blood in vomit If biopsies were taken, results will be mailed to you within a 2 to 3 week period. EGD Discharge Recommendations: Sedative medication given for procedures can slow your reaction time and coordination for many hours. If you receive medications, it is important for your safety to follow the instructions below for the remainder of the day: Start with only small sips of water. If small sips of water are tolerated, you may begin to take solid foods. BE TAKEN directly home from the hospital and rest quietly. Do NOT resume normal activities until tomorrow. Do NOT drive, return to work, or operate any machinery or power tools. Do NOT make any important personal or business decisions, sign any legal papers, or perform any activity. that depends on your full concentrating power or mental judgment. Do NOT drink any alcohol or take nerve or sleeping drugs. They add to the effects of the medicine still present in your body. If a treatment is performed during the procedure, there is a slight risk of bleeding. If you receive treatment, we suggest that you follow the instructions below: Do NOT exercise, jog, or do any heavy lifting or straining for 24 hours. Potential common after effects and treatments following the procedure: Mild sore throat - treat with throat lozenges and gargle with warm salt water. Mild abdominal pain or bloating - rest, eat lightly, and use a heating pad. Redness and/or swelling where the IV was - apply heat and elevate. Symptoms to report to your physician: Severe sore throat or inability to swallow and/or eat usual diet. Chills or fever above 101 degrees occurring within 24 hours after procedure. Pain in chest or neck. Severe continuing abdominal pain, vomiting, nausea, or bleeding. Swelling to the neck area. IV site stays red and swollen for more than 2 days. Persistent black bowel movements (may indicate hidden blood) *If you have been vaccinated from Covid-19, please bring your vaccination card or a photo of your vaccination card to your appointment* documented in this encounter Progress Notes * Deven Quiñones, RD - 07/18/2023 1415 EDT Bariatric Clinic - Medical Nutritional Evaluation - Initial 07/18/2023 Evaluation for Gastric Sleeve. Subjective: Patient is 43 y.o. male here for nutritional assessment for morbid obesity in preparation for bariatric surgery. My doctor was not happy that my weight went up 3 lbs since last August. I have carpel tunnel surgeries in July and August. I will be going back to work end of August. I have been on the Continuous glucose monitor about 5 months ago.I know what foods make my blood sugars go up and foods thatdo not make my blood sugars go high. It was a learning curve. Nutrition/diet history: Family/other support system: significant other Menu planning/shopping: significant other(Girlfriend and Mother) Who does the cooking: patient, significant other, and Mom Eating out frequency: Rarely Prior weight loss attempts: Portion control and exercise; RD for Diabetes management(3 times in last 2 years) Patient's diet has changed since 3 day food record was kept. Reports trying to eat less bread. 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); Reasons for limited exercise: medical issues(L upper arm pain: getting an MRI) Objective: Past Medical History: Diagnosis Date Diabetes mellitus ([facility]) Current Outpatient Medications Medication aspirin chewable 81 mg tablet atorvastatin (LIPITOR) 40 mg tablet blood glucose meter (Ubiquiti NetworksTOUCH VERIO FLEX METER) buPROPion (WELLBUTRIN XL) 150 mg XL tablet busPIRone (BUSPAR) 10 mg tablet empagliflozin (JARDIANCE) 25 mg tablet famotidine (PEPCID) 40 mg tablet glimepiride (AMARYL) 2 mg tablet indomethacin (INDOCIN) 50 mg capsule insulin aspart U-100 (NOVOLOG FLEXPEN) 100 unit/mL (3 mL) injectable pen insulin degludec (TRESIBA FLEXTOUCH U-100) 100 unit/ml (3ml) insulin pen lamoTRIgine (LAMICTAL) 25 mg tablet lancets liraglutide (VICTOZA 3-CRUZITO) 0.6 mg/0.1 mL (18 mg/3 mL) injectable pen lisinopril (PRINIVIL, ZESTRIL) 10 mg tablet meloxicam (MOBIC) 15 mg tablet metFORMIN (GLUCOPHAGE) 500 mg tablet montelukast (SINGULAIR) 10 mg tablet ONETOUCH ULTRA BLUE TEST STRIP test strips sertraline (ZOLOFT) 100 mg tablet traZODone (DESYREL) 100 mg tablet traZODone (DESYREL) 50 mg tablet UBIDECAR/VIT B6/B12/B5/MGOX (RX BALANCE STATIN ORAL) No current facility-administered medications for this visit. BP 128/77 Pulse 99 Ht 180 cm (70.87) Wt (!) 144.9 kg (319 lb 6.4 oz) BMI 44.72 kg/m?? Bodymass index is 44.72 kg/m??. Excess BW: ~160.8 lbs 5% Wt Loss or Goal Wt: 16 lbs Estimated Body Wt after Surgery: ~223 lbs s/p Gastric Sleeve Patient was counseled on keeping a food diary and pre-op weight loss expectations and given Drs. Marisel Power Patient has the following barriers to learning: none Assessment: Patient seems to be an appropriate candidate for bariatric surgery based on multiple failed weight loss attempts and BMI and comorbidities. Patient has already made significant positive changes in diet:Eating less bread. Only drinks 16 oz water a day. Patient needs to make the following changes prior to next visit include protein at least 3 times a day,, keep food records,, eat more slowly,, add 3-5 servings of vegetables each day,, add 2-3 servings of fruit each day,, and include protein at breakfast meal. Aim for ~7094-9915 calories a day. Patient needs to make the following changes in exercise prior to next visit: Start walking 20 minutes X 3 each day when not working. Patient appears to comprehend requirements. Plan: Patient will be evaluated for changes in diet as above and maintain a food diary including foods consumed and calories calculated. Patient is expected to bring at least 1 week of food diaries to second visit for review. Patient will lose 1-2 pounds a week, or at least 16 lbs by day of surgery Deven Quiñones RD 07/18/2023 14:25 * Lonnie Diallo MD - 07/18/2023 1415 EDT 07/18/2023 Chief Complaint: Khris Hook is a 43 y.o. male seen today in consultation at the request of for consideration of surgical treatment for his morbid obesity. HPI: Khris Hook has had weight problems since high school. He has tried multiple weight loss programs with the following results: no long-term success. Their maximum weight loss has been 25 pounds, and their highest weight has been currenyl. The patient's primary motivation for weight loss is health, mobility, and longevity. Associated co-morbidities: Sleep apnea, Diabetes, Osteoarthritis, and Gastro- Esophogeal Reflux Gallbladder: US not done yet Prior abdominal surgeries: none Past Surgical History: Procedure Laterality Date EYE SURGERY Gastric problems/issues: none Patient Active Problem List Diagnosis Type 2 diabetes mellitus, without long-term current use of insulin ([facility]) HTN (hypertension) Hyperlipidemia Depression Allergies: Patient has no known allergies. Social History: Social History Tobacco Use Smoking status: Never Smokeless tobacco: Never Substance Use Topics Alcohol use: Never Review of Systems: Pertinent items are noted in Subjective/HPI Physical Exam: BP 128/77 Pulse 99 Ht 180 cm (70.87) Wt (!) 144.9 kg (319 lb 6.4 oz) BMI 44.72 kg/m?? Bodymass index is 44.72 kg/m??. General Appearance: morbidly obese HEENT: PERRLA and EOMI Cardiovascular: PMI normal. No lifts, heaves, or thrills. RRR. Heart sounds normal. No murmurs, clicks or gallops. Abdominal aorta pulsation normal. Carotid, femoral and pedal pulses 2+ bilaterally. No arterial bruits. No peripheral edema. Abdomen: soft, non-tender; bowel sounds normal; no masses, no organomegaly Pannus: mild Skin: Skin color, texture, turgor normal. No rashes or lesions. Extremities: normal strength, tone, and muscle mass Assessment: I spent a total of 45 minutes in face to face time with this patient and 2 minutes of that time wasspent in counseling, discussing this patient's medical profile as it relates to the benefits and risks of gastric bypass/lapband surgery and reviewed an on-line GINO tutorial the patient watched covering the way weight loss surgery is done, how it causes weight loss, potential risks and complications, impact on eating and critical nature of exercise and follow up to a good outcome. The patient acknowledges a pre-op BMI goal of 5%. I explained in detail the procedures that we are performing. All of these procedures can be performed laparoscopically or open. The patient was made aware of the followin. As we perform these procedures laparoscopically, there is a chance to convert to open if any technical challenges or complications do occur. 2. Bariatric surgery is not cosmetic surgery and should not be thought of in any way as cosmetic surgery. It does not involve the removal of adipose tissue by surgery or removal by suctioning. 3. Long-life commitment is a very important part of his/her decision along with lifestyle changes including diet, exercise, and behavior changes. 4. Problems after surgery may require more operations to correct them. 5. Patient will need to be on a liquid/protein diet for at least 2 weeks prior to surgery. 6. If appropriate: she was advised against during the first year after the procedure. The risks, benefits and alternatives of all of the procedures were explained in detail including, but not limited to , anesthesia and medication adverse effect/DVT, pulmonary embolism, trocar site/incisional hernia, wound infection, bleeding, failure to lose weight or gain weight and change inbody image. With regard to the band, the risks and benefits were explained. The risks associated with the band include, but are not limited to: gastric/esophageal perforation, access port leakage, infection or twisting that may require an additional operation, failure to lose weight or gaining weight, nausea, v omiting, outlet obstruction, pouch and esophageal dilatation, gastroesophageal reflux disease symptoms, band migration/slippage or erosion. For the gastric bypass the risks include but not limited to the following early complications: anastomotic leak/peritonitis, acute distal gastric dilatation, Sarah limb obstruction, severe & minorwound infection/seroma, and nausea/vomiting. Late complications of gastric bypass can include but are not limited to: stomal stenosis, marginal ulcer, SBO/internal,incisional hernia, staple line disruption (GGF) and metabolic complications with calcium, thiamine, vitamin B12, folate, iron and anemia. Regarding the sleeve the risks include but are not limited to: internal visceral/ organ injury, bleeding, infection, leak, stenosis and possibility of regaining weight. The patient understands the surgical procedures and the different surgical options that are available. He understands the lifestyle changes that would be required after surgery and has agreed to participate in a pre-operative and postoperative weight management program. He understands the risks involved as well, including a leak, a blood clot developing in a leg and migrating to the lungs as a pulmonary embolus, conversion to open surgery, and . Khris has attended the preoperative bariatric education class and has had additional opportunity to address specific concerns. I think he is a good candidate for this surgery, and his expectations from the surgery are reasonable. Plan: He was asked to Shedule a follow-up appt with our bump grader operator and our physician's printer floor covering assistant, IMANI Molina. We will obtain the results of the following: UGI and EGD. Khris Hook is an appropriate candidate for Gastric Sleeve surgery pending test results.. For the next visit he was advised to come with his family. Seen and discussed with Feather Boner at this visit. Lonnie Diallo MD 07/18/2023 14:30 documented in this encounter Plan of Treatment Scheduled Orders Name Type Priority Associated Diagnoses Orde r Schedule FL BARIUM SWALLOW Imaging Routine Gastroesophageal reflux disease, unspecified whether esophagitis present Expected: 08/17/2023 (Approximate), Expires: 07/17/2024 UPPER ENDOSCOPY (EGD) GI Routine Gastroesophageal reflux disease, unspecified whether esophagitis present Expected: 08/17/2023 (Approximate), Expires: 01/16/2025 documented as of this encounter Visit Diagnoses Diagnosis Gastroesophageal reflux disease, unspecified whether esophagitis present- Primary documented in this encounter Care Teams Hotel Assistant Manager Relationship Specialty Start Date End Date Mariana Abel FNP [address] [place] [address] PCP - General Family Medicine - Primary Care 07/03/23 documented as of this encounter
--- OUTSIDE RECORDS SUMMARY | 2024-02-20 17:23 | XMS_ITS | Encounter Summary ---
[place] [address] Care Team Providers Care Management Retail Intern Name Role Phone Unavailable Primary Care Provider Unavailabl e Encounter Details Date Type Department Care Team (Late st Contact Info) Description 12/10/2023 Interpretation Only [facility] in [address] [id number] Unknown None Social History Tobacco Use Types Packs/Day Years [...]
--- OUTSIDE RECORDS SUMMARY | 2024-02-20 17:23 | XMS_ITS | Encounter Summary ---
Author Organization [facility] Address [address] [place] [address] Care Team Providers Care Information Technology Professor Name Role Phone Arturo Palomo MD Primary Care Provider [phone] Reason for Visit * Reason Onset Date Comments Medications Refill 10/21/2019 Encounter Details Date Type Department Care Team (Late st Contact Info) Description 10/21/2019 Refill [facility] [place] [address] [place] [id number] Mariah Young RN Medications Refill Social History Tobacco Use Types Packs/Day Years Used Date Smoking Tobacco: Never Smokeless Tobacco: Never Alcohol Use Standard Drinks/Week Comments Never 0 [...] on file documented as of this encounter Functional Status * Because of [...] 07/17/2019 15:41 EDT documented in this encounter Ordered Prescriptions Prescription Sig Dispense Quantity Refills Last Filled Start Date End Date liraglutide (VICTOZA 3-CRUZITO) 0.6 mg/0.1 mL (18 mg/3 mL) injectable pen Inject 1.8 mg into the skin daily. 9 Pen 3 10/21/2019 02/18/2020 documented in this encounter Plan of Treatment Not on file documented as of this encounter Visit Diagnoses Not on filedocumented in this encounter Discontinued Medications Medication Sig Discontinue Reason Start Date End Da te liraglutide (VICTOZA 3-CRUZITO) 0.6 mg/0.1 mL (18 mg/3 mL) injectable pen Inject 1.8 mg into the skin daily. Reorder 10/21/2019 documented as of this encounter Care Teams Information Technology Professor Relationship Specialty Start Date End Date Arturo Palomo MD PCP - General 11/17/16 07/02/23 documented as of this encounter
--- OUTSIDE RECORDS SUMMARY | 2024-02-20 17:23 | XMS_ITS | Encounter Summary ---
Author Organization [facility] Address [address] [place] [address] Care Team Providers Care Winery Cellar Hand Name Role Phone Arturo Palomo MD Primary Care Provider [phone] Reason for Visit * Reason Comments Diabetes Encounter Details Date Type Department Care Team (Late st Contact Info) Description 12/10/2019 9:00 EDT Office Visit [facility] [place] [address] [place] [address] Glendy Jones MD [address] [facility] [address] [place] [phone] Type 2 diabetes mellitus with hyperglycemia, without long-term current use of insulin ([facility]) (Primary Dx) Social History Tobacco Use Types [...] 07/17/2019 15:41 EDT documented in this encounter Progress Notes * Mariah Young RN - 12/10/2019 09 EDT Letter sent Needs micro Lab Results Component Value Date HGBA1C 13.5 (A) 08/25/2019 Glucose- * Glendy Mcfadden MD - 12/10/2019 0900 EDT Due to computer system disruption, additional clinical information for this visit is Scanned Note. For patients, please refer to guidance in [employer] on how to locate information. Generally this information will appear as a scanned documents saved in My Documents activity. In summary he came for follow up for type 2 Dm, has improved. Plan to increase tresiba to 18 units a day. Start Humalog 3 units before dinner. Continue metformin, victoza. Increase jardiance to 25 mg a day. 4/6 weeks with Ramonita. Glendy Beltre MD 01/28/2020 11:31 documented in this encounter Plan of Treatment Not on file documented as of this encounter Procedures Procedure Name Priority Date/Time Associated Diagnosis Comments POCT GLUCOSE, MANUAL ENTRY Routine 12/10/2019 Type 2 diabetes mellitus with hyperglycemia, without long-term current use of insulin ([facility]) POCT HEMOGLOBIN A1C Routine 12/10/2019 Type 2 diabetes mellitus with hyperglycemia, without long-term current use of insulin ([facility]) documented in this encounter Results * (ABNORMAL) POCT GLUCOSE, MANUAL ENTRY (12/10/2019) Glucose, POC 169(A) 70 - 100 mg/dL [facility] POINT OF CARE HN LAB POC COMMENT MANUAL (GLUCOSE) [facility] POINT OF industrial refrigeration mechanic ID [facility] POIN T OF CARE Blood CAPILLARY BLOOD / Unknown 12/10/2019 Glendy Jones MD POINT OF CARE TEST ORDERABLES Final Result Performing Organization Address City/[facility] Co de Phone Number [facility] POINT OF CARE * (ABNORMAL) POCT HEMOGLOBIN A1C (12/10/2019) Hemoglobin A1c, POC 8.0(A) <=5.7 % [facility] POINT OF CARE Blood CAPILLARY BLOOD / Unknown 12/10/2019 Glendy Jones MD POINT OF CARE TEST ORDERABLES Final Result Performing Organization Address [facility] de Phone Number [facility] documented in this encounter Visit Diagnoses Diagnosis Type 2 diabetes mellitus with hyperglycemia, without long-term current use of insulin ([facility])- Primary documented in this encounter Discontinued Medications Medication Sig Discontinue Reason Start Date End Da te empagliflozin (JARDIANCE) 10 mg tablet Take 1 Tab by mouth daily. Dose adjustment 10/21/2019 01/27/2020 documented as of this encounter Historical Medications * This list may reflect changes made after this encounter. empagliflozin (JARDIANCE) 25 mg tablet Take 1 Tablet by mouth daily. insulin aspart U-100 (NOVOLOG FLEXPEN) 100 unit/mL (3 mL) injectable pen Inject 3 Units into the skin daily. 3 u with dinner insulin degludec (TRESIBA FLEXTOUCH U-100) 100 unit/ml (3ml) insulin pen 18 Units daily. 12/18/2023 added in this encounter Care Teams Winery Cellar Hand Relationship Specialty Start Date End Date Arturo Palomo MD PCP - General 11/17/16 07/02/23 documented as of this encounter
--- OUTSIDE RECORDS SUMMARY | 2024-02-20 17:23 | XMS_ITS | Encounter Summary ---
Author Organization [facility] Address [address] [place] [address] Care Team Providers Care Sandblaster Paint Sprayer Name Role Phone Arturo Palomo MD Primary Care Provider [phone] Reason for Visit * Reason Comments Drug Overdose brought from scene a fter experiencing confusion s/p eating gummy bears which he was told were laced with marijuana. Patient also states he thought he was hypoglycemic and ate a chocolate cream pie and had two glasses of OJ prior to arrival. Arrives awake/alert/oriented. 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 Ingestion occurred approximately 4 pm and symptoms started at 6 pm. Unsure of what occurred during time period between 6 and arriva Encounter Details Date Type Department Care Team (Late st Contact Info) Description 11/17/2016 22:07 EDT - 11/18/2016 0:15 EDT Emergency [facility] Emergency Department - [address] [address] Star Duncan MD [address] [facility], Level 1 [place] [id number] Emergency, MD Shayla Inadvertent Cannabis intoxication without complication (HCC) (Primary Dx); Type 2 diabetes mellitus with hyperglycemia, without long-term current use of insulin ([facility]) (HCC-[facility]) Discharge Disposition: Home or Self Care Social History Tobacco Use Types Packs/Day Years Used Date Smoking Tobacco: Never Smokeless Tobacco: Never Alcohol Use Standard Drinks/Week Comments No 0 (1 standard drink = 0.6 oz pur e alcohol) Sex and Gender Information Value Date Recorded Sex Assigned at Male 01/01/2024 12:07 EST Legal Sex Male 22:06 EDT Gender Identity Male 05/17/2020 9:08 EDT Sexual Orientation Not on file documented as of this encounter Last Filed Vital Signs Vital Sign Reading Time Taken Comments Blood Pressure 106/69 11/18/2016 0000 EDT Pulse 111 11/17/20162218 EDT Temperature 37 ??C (98.6 ??F) 11/17/20162218 EDT Respiratory Rate 26 11/17/20162218 EDT Oxygen Saturation 93% 11/18/2016 0000 EDT Inhaled Oxygen Concentration - - Weight 122.5 kg (270 lb) 11/17/20162218 EDT Height 182.9 cm (6') 11/17/20162218 EDT Body Mass Index 36.62 11/17/20162218 EDT documented in this encounter Discharge Diagnoses Diagnosis E11.65 Type 2 diabetes mellitus with hyperglycemia-E11.65[ICD-10-CM] F12.920 Cannabis use, unspecified with intoxication, uncomplicated-F12.920[ICD-10-CM] documented in this encounter Discharge Instructions * Discharge Instructions* Star Duncan MD - 11/18/2016 0:09 EDT Continue current medications as prescribed. Do not drive or operate heavy machinery until all symptoms have resolved. Recheck your blood sugar frequently tomorrow. Follow-up as needed with Dr. Palomo. documented in this encounter Medications at Time of Discharge buPROPion (WELLBUTRIN) 100 mg tablet Take by mouth 2 times daily. 07/17/2019 citalopram (CELEXA) 20 mg tablet Take 20 mg by mouth daily. 08/25/2019 lisinopril (PRINIVIL, ZESTRIL) 10 mg tablet Take 2 Tablets by mouth daily. 12/18/2023 metFORMIN (GLUCOPHAGE) 500 mg tablet Take 2 Tablets by mouth 2 times daily. 12/18/2023 sitaGLIPtin (JANUVIA) 100 mg tablet Take 100 mg by mouth daily. 08/25/2019 UBIDECAR/VIT B6/B12/B5/MGOX (RX BALANCE STATIN ORAL) Take 1 Tab by mouth daily. 12/18/2023 documented as of this encounter Discharge Disposition Disposition Code Departure Means Destination Home or Self Custodial documented in this encounter ED Notes * Geraldine Chang RN - 11/18/2016 0014 EDT D/C ambulatory from ER with verbalized understanding of instructions. * Geraldine Chang RN - 11/17/2016 2219 EDT Chief Complaint Patient presents with ??? Drug Overdose brought from scene after experiencing confusion s/p eating gummy bears which he was told were lacedwith marijuana. Patient also states he thought he was hypoglycemic and ate a chocolate cream pie and had two glasses of OJ prior to arrival. Arrives awake/alert/oriented. 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 Ingestion occurred approximately 4 pm and symptoms started at 6 pm. Unsure of what occurred during time period between 6 and arriva * Star Duncan MD - 11/17/2016 2217 EDT DOS: 11/17/2016 HPI HPI Comments: IMamta, am scribing for Star Duncan MD while he is personally performing the service. Mamta Jacobs 11/17/2016 22:18 Khris Hook is a 36 y.o. male with a history of type II DM who presents after ingesting marijuana gummies around 1800. 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 He assumed that this was just normal candy, and ate several squares. He states he then then started to feel weird and thought he was hypoglycemic, so drank two glasses of orange juice and ate a piece of chocolate pie around 1900. Pt states that he then felt drunk and realized that he could not drive the bus anymore. He called his boss who said he should be fine and that it would go away, however symptoms persisted and pt called an ambulance. Pt states the passengers on the bus told the police that he was likely drinking and that was why he could not drive, however per EMS EtOH was 0.00. Blood glucose was noted to be 488 at the scene. Pt states he has never gotten high before and never been drunk so he was scared when he started to feel weird, realizing that he should not have ate the gummies. Police are currently investigating the situation at the scene. The history is provided by the patient. Review of Systems The patient's past medical, family and social history was reviewed and updated as needed. Review of Systems Constitutional: Feels strange Psychiatric/Behavioral: The patient is nervous/anxious. All other systems reviewed and are negative. No Known Allergies Vital Signs Temp: 37 ??C (98.6 ??F) Temp src: Oral Pulse: (!) 111 Heart Rate: 95 BPM Resp: 26 SpO2: 93 % BP: 106/69 BP MAP: 77 mm Hg Physical Exam Constitutional: He is oriented to person, place, and time. He appears well- developed and well-nourished. HENT: Head: Normocephalic and atraumatic. Eyes: EOM are normal. Pupils are equal, round, and reactive to light. Pupil 6 mm equal, round, and reactive. Neck: Normal range of motion. Neck supple. Cardiovascular: Regular rhythm and normal heart sounds. Tachycardia present. No murmur heard. Pulmonary/Chest: Effort normal and breath sounds normal. No respiratory distress. Abdominal: Soft. There is no tenderness. Musculoskeletal: Normal range of motion. Neurological: He is alert and oriented to person, place, and time. Psychiatric: He has a normal mood and affect. His speech is normal and behavior is normal. Thought content normal. Cognition and memory are normal. Nursing note and vitals reviewed. RESULTS EKG orders: None Radiology orders: None ED Lab Results Labs Reviewed GLUCOSE, GLUCOMETER - Abnormal Result Value Status Glucose, Fingerstick 363 (*) Final Chemical Engineering Technologist ID [id number] Final GLUCOSE, GLUCOMETER - Abnormal Glucose, Fingerstick 342 (*) Final Chemical Engineering Technologist ID [id number] Final DRUG SCREEN 11, URINE Amphetamine Screen Negative screen. Final Barbituate Screen Negative screen. Final Bezodiazepine Scrn Negative screen. Final Cannabinoids Screen Presumptive positive, interpret with caution. Final Methadone Screen Negative screen. Final Opiates Screen Negative screen. Final Oxycodone Screen Negative screen. Final Cocaine Metabolites Negative screen. Final Buprenorph and Metab Negative screen. Final Methamphetamine Scrn Negative screen. Final Propoxyphene Screen Negative screen. Final Relevant Data Procedures ED COURSE A medical screening exam was performed. 36-year-old male seen status post inadvertent ingestion of cannabis-laced candy. Incident is complicated by transient hyperglycemia, as the patient thought he was hypoglycemic and ate a significant sugar load in response. Patient had labs that were reviewed independently by myself, significant for blood glucose 363. He was administered 1 L IV sodium chloride bolus. 2320: Pt was re-evaluated. He is feeling much better. Family at bedside. 2349: Blood glucose 342. Urine drug screen presumptive positive for cannabinoids, otherwise negative. Patient feels improved, and will be discharged to home with family. ASSESSMENT AND PLAN Final diagnoses: Inadvertent Cannabis intoxication without complication (HCC) Type 2 diabetes mellitus with hyperglycemia, without long-term current use of insulin (HCC) DISPOSITION: Discharged The patient's pain was managed to an adequate level weighing risk vs. benefit of further medications. Upon departure from the Emergency Department, the patient's pain was 0 on a zero to ten scale. Any further pain treatment will be at the discretion of the provider following up with the patient based on their clinical assessment. Condition at departure from the Emergency Department: Improved PCP: Arturo MARCANO Number of Diagnoses or Management Options Inadvertent Cannabis intoxication without complication (HCC): Type 2 diabetes mellitus with hyperglycemia, without long-term current use of insulin (HCC): Diagnosis management comments: 3 Amount and/or Complexity of Data Reviewed Clinical lab tests: ordered and reviewed Review and summarize past medical records: yes This documentation is recorded by Mamta Jacobs acting as Scribe under the direction and presence of Star Duncan MD. Star Duncan MD: I personally performed the services recorded by the scribe in my presence. I confirm the scribe's documentation has been reviewed by me to accurately and completely record my work, treatment, procedures, and medical decision making. 11/18/2016 16:57 No flowsheet data found. documented in this encounter Plan of Treatment Not on file documented as of this encounter Procedures Procedure Name Priority Date/Time Associated Diagnosis Comments GLUCOSE, GLUCOMETER Routine 11/17/2016 2 3:48 EDT DRUG SCREEN 11, URINE Routine 11/17/2016 22:40 EDT GLUCOSE, GLUCOMETER Routine 11/17/2016 2 2:14 EDT documented in this encounter Results * (ABNORMAL) GLUCOSE, GLUCOMETER (11/17/2016 23:48 EDT) Glucose, Fingerstick 342(H) 70 - 100 mg/dl 11/17/2016 23:53 EDT [facility] Chemical Engineering Technologist [place] [id number] 11/17/2016 23:53 EDT [facility] Comment:Test Performed by [facility] BLOOD SPECIMEN / Unknown 11/17/2016 23:48 EDT 11/17/2016 23:53 EDT us Provider Unknown CHEMISTRY & BLOOD GAS ORDERA BLES Final Result [facility] [address] [place] [address] * DRUG SCREEN 11, URINE (11/17/2016 22:40 EDT) Amphetamine Screen Negative screen. 11/18/2016 0:03 EDT [facility] Comment: Confirmation testing available upon request. New methodology in use 06/20/16. Suitable for medical purposes only. Will not detect all drugs within class. Cutoff = 500 ng/ml Specimen type is urine. Barbituate Screen Negative screen. 11/18/2016 0:03 EDT [facility] Comment: Confirmation testing available upon request. New methodology in use 06/20/16. Suitable for medical purposes only. Will not detect all drugs within class. Cutoff = 200 ng/ml Specimen type is urine. Benzodiazepine Scrn Negative screen. 11/18/2016 0:03 [facility] Comment: Confirmation testing available upon request. New methodology in use 06/20/16. Suitable for medical purposes only. Will not detect all drugs within class. Cutoff = 150 ng/ml Specimen type is urine. Cannabinoids Screen Presumptive positive, interpret with caution. 11/18/2016 0:03 [facility] Comment: Confirmation testing available upon request. New methodology in use 06/20/16. Suitable for medical purposes only. Will not detect all drugs within class. Cutoff = 50 ng/ml Specimen type is urine. Methadone Screen Negative screen. 11/18/2016 0:03 [facility] Comment: Confirmation testing available upon request. New methodology in use 06/20/16. Suitable for medical purposes only. Will not detect all drugs within class. Cutoff = 200 ng/ml Specimen type is urine. Opiates Screen Negative screen. 11/18/2016 0:03 [facility] Comment: Confirmation testing available upon request. New methodology in use 06/20/16. Suitable for medical purposes only. Will not detect all drugs within class. Cutoff = 100 ng/ml Specimen type is urine. Oxycodone Screen Negative screen. 11/18/2016 0:03 [facility] Comment: Confirmation testing available upon request. New methodology in use 06/20/16. Suitable for medical purposes only. Will not detect all drugs within class. Cutoff = 100 ng/ml Specimen type is urine. Cocaine Metabolites Negative screen. 11/18/2016 0:03 [facility] Comment: Confirmation testing available upon request. New methodology in use 06/20/16. Suitable for medical purposes only. Will not detect all drugs within class. Cutoff = 150 ng/ml Specimen type is urine. Buprenorph and Metab Negative screen. 11/18/2016 0:03 [facility] Comment: Confirmation testing available upon request. New methodology in use 06/20/16. Suitable for medical purposes only. Will not detect all drugs within class. Cutoff = 10 ng/ml Specimen type is urine. Methamphetamine Scrn Negative screen. 11/18/2016 0:03 [facility] Comment: Confirmation testing available upon request. New methodology in use 06/20/16. Suitable for medical purposes only. Will not detect all drugs within class. Cutoff = 500 ng/ml Specimen type is urine. Propoxyphene Screen Negative screen. 11/18/2016 0:03 EDT [facility] Comment: Confirmation testing available upon request. New methodology in use 06/20/16. Suitable for medical purposes only. Will not detect all drugs within class. Cutoff = 300 ng/ml Specimen type is urine. Urine specimen (specimen) URINE / Unknown 11/17/2016 22:40 EDT 11/17/2016 23:11 EDT Star Duncan MD GEN LAB UNIT COLLECT ORDERA BLES Final Result Performing Organization Address City/[facility]/ZIP Co de Phone Number [facility] [address] [place] [address] * (ABNORMAL) GLUCOSE, GLUCOMETER (11/17/2016 22:14 EDT) Glucose, Fingerstick 363(H) 70 - 100 mg/dl 11/17/2016 22:18 EDT [facility] Chemical Engineering Technologist ID [id number] 11/17/2016 22:18 EDT [facility] Comment[facility] BLOOD SPECIMEN / Unknown 11/17/2016 22:14 EDT 11/17/2016 22:18 EDT Provider Greg MEYERS CHEMISTRY & BLOOD GAS ORDERA BLES Final Result Performing Organization Address City/[facility]/ZIP Co de Phone Number [facility] [address] [place] [address] documented in this encounter Visit Diagnoses Diagnosis Inadvertent Cannabis intoxication without complication (HCC)- Primary Type 2 diabetes mellitus with hyperglycemia, without long-term current use of insulin ([facility]) documented in this encounter Administered Medications Inactive Administered Medications - up to 3 most recent administrations Medication Order MAR Action Action Date Dose Rate Site sodium chloride 0.9 % BOLUS 1,000 mL 1,000 mL, intravenous, NOW X1, 1 dose, On 11/17/16 at 2230, STAT New Bag 11/17/2016 22:25 EDT 1,000 mL documented in this encounter Historical Medications * This list may reflect changes made after this encounter. sitaGLIPtin (JANUVIA) 100 mg tablet Take 100 mg by mouth daily. 08/25/2019 metFORMIN (GLUCOPHAGE) 500 mg tablet Take 2 Tablets by mouth 2 times daily. 12/18/2023 UBIDECAR/VIT B6/B12/B5/MGOX (RX BALANCE STATIN ORAL) Take 1 Tab by mouth daily. 12/18/2023 lisinopril (PRINIVIL, ZESTRIL) 10 mg tablet Take 2 Tablets by mouth daily. 12/18/2023 citalopram (CELEXA) 20 mg tablet Take 20 mg by mouth daily. 08/25/2019 buPROPion (WELLBUTRIN) 100 mg tablet Take by mouth 2 times daily. 07/17/2019 added in this encounter Active and Recently Administered Medications Times are shown in EDT. Scheduled Medication Order 11/16/2016 11/17/2016 11/18/2016 sodium chloride 0.9 % BOLUS 1,000 mL (COMPLETED) 1,000 mL, intravenous, NOW X1, 1 dose, On 11/17/16 at 2230, STAT 2225 (New Bag - Provider: Geraldine Chang, OMERO) 0015 (Completed - Provider: Geraldine Chang, RN) documented in this encounter Orders Medications Ordered That Binh ht Not Have Been Administered Count Last Ordered Date First Ordered Date sodium chloride 0.9 % BOLUS 1,000 mL 1 08/2016 documented in this encounter Care Teams Sandblaster Paint Sprayer Relationship Specialty Start Date End Date Arturo Palomo MD PCP - General 11/17/16 07/02/23 documented as of this encounter
--- OUTSIDE RECORDS SUMMARY | 2024-02-20 17:23 | XMS_ITS | Encounter Summary ---
Author Organization [facility] Address [address] [place] [address] Care Team Providers Care Jewel Inserter Name Role Phone Mariana Abel BROADCAST OPERATIONS ENGINEER Primary Care Provider Reason for Visit * Reason Onset Date Comments Results 12/24/2023 Call [facility] redra w Vanc. trough Labs Only 12/24/2023 Encounter Details Date Type Department Care Team (Late st Contact Info) Description 12/24/[address] [facility] [place] [address] [place] [id number] Cortney Brush MD [address] [phone] [facility] Labs Only Social History Tobacco Use Types Packs/Day Years [...] 07/17/2019 15:41 EDT documented in this encounter Miscellaneous Notes * Telephone Encounter - Ayana Infante RN - 12/27/2023 1507 EST Cinthya at [facility] has patient scheduled for Saturday. * Telephone Encounter - Ayana Infante RN - 12/27/2023 1052 EST Orders faxed * Telephone Encounter - Ayana Infante RN - 12/27/2023 1007 EST [facility] infusion will need last notes and orders for weekly dressing changes. They will fax order form to office. * Addendum Note - Ayana Infante RN - 12/26/2023 1439 ESTAddended by: AYANA INFANTE on: 12/26/2023 14:39 Modules accepted: Orders * Telephone Encounter - Ayana Infante RN - 12/26/2023 1437 EST Discussed with patient. Informed him there are standing order for his weekly labs and a PRN order for vanco troughs. PICC line dressing changes will need to be send to the infusion lab. He is seeing ortho for daily dressing changes. * Telephone Encounter - Allan Jacobs - 12/26/2023 1406 EST Patient calling stating that labs/orders will need sent to [facility]. He will be going at 8AM tomorrowmorning. * Telephone Encounter - Ayana Infante RN - 12/26/2023 1357 EST Spoke with Shy at [facility].. Patient's MVP requires that he is homebound for services. 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 * Telephone Encounter - Ayana Infante RN - 12/26/2023 1021 EST Patient notified of plan and to hold IV abx tomorrow AM until labs have been drawn. Patient verbalized understanding. * Telephone Encounter - Ayana Infante RN - 12/26/2023 1019 EST Spoke with Carol at [facility]. They are trying to schedule trough either tonight at 8pm or tomorrow at 8am and looking for guidance. Approved tomorrow at 8am for Vanc trough. Carol verbalized understanding. * Telephone Encounter - Allan Jacobs - 12/26/2023 0939 EST Patient called to state that they are finishing their vancomycin dose today at 10:30AM and [facility] is coming by at 1PM for labs. Wasn't sure if that was okay. * Telephone Encounter - Masoud Noe RN - 12/25/2023 0845 EST I called and left a detailed message for pharmacist Mary Alice. I called [facility] and spoke with the intakecoordinator. They will add Khris as a PRN visit and redraw a true trough level 30 min prior to theinfusion tomorrow morning. * Telephone Encounter - Ayana Infante RN - 12/24/2023 1712 EST Discussed with patient. He stated the Home Health nurse elisa his labs while his Vancomycin infusionwas running, so this is NOT a true trough level. He typically does the infusions around 8-8:30 AM/PM. Nurse does not come out until 10ish. His PICC line has been sluggish and he was seen by the IV nurse at [facility] today. Infusions are taking between 2.5-4 hours (should be around 2 hours). He reports no issues with the gravity infusion set up. He is going to start doing 2 saline flushes before and after his Vanco infusions to help clearthe line. New order will need to be called to [facility] for the correct supplies so he does not ru n out. Dr. Brush notified his lab was not a true trough level via secure chat. Received orders for patientto continue his infusions as ordered and have HH come draw a true trough level minal. Patient notified and agreed with plan. * Telephone Encounter - Ayana Infante RN - 12/24/2023 1704 EST Images from the original note were not included. Secure chat with Dr. Brush: * Telephone Encounter - Ayana Infante RN - 12/24/2023 1655 EST Spoke with Mary Alice at [facility] who is managing patient. Confirmed dose of 1750mg every 12 hours. No recent changes to therapy. Patient is doing [place] bag (all they had on hand whenadmitted to services). If this is an issue for patient, then can change to elastomeric. Mary Alice will calculate the AUC and advise on dose change. She will call back on Saturday with this info. * Telephone Encounter - Ayana Infante RN - 12/24/2023 1646 EST Spoke with Anisha at [facility]. Patient on IV Vancomycin 1750mg every 12 hours as of 12/18/23. He has weekly visits on Mondays. Pharmacy is [facility]. Line has been sluggish. has not received anyVanco trough labs. No new orders have been called in with med changes. * Telephone Encounter - Cortney Brush MD - 12/24/2023 1513 EST Labs from [facility] on 12/23/23 - Vanc trough 26.8 WBC 4.88 CRP 4.43 mg/L Creatinine 0.78 Will need to see what dose he's on, calculate AUC, and adjust dose if needed to get to AUC 400-600. documented in this encounter Plan of Treatment Scheduled Orders Name Type Priority Associated Diagnoses Orde r Schedule C REACTIVE PROTEIN Lab Routine Open wound of right wrist, subsequent encounter Surgical site infection weekly for 12 Occurrences starting 12/26/2023 until 12/25/2024 COMPLETE BLOOD COUNT Lab Routine Open wound of right wrist, subsequent encounter Surgical site infection weekly for 12 Occurrences starting 12/26/2023 until 12/25/2024 COMPREHENSIVE METABOLIC PANEL (CMP) Lab Routine Open wound of right wrist, subsequent encounter Surgical site infection weekly and PRN for 12 Occurrences starting 12/26/2023 until 12/25/2024 VANCOMYCIN TROUGH Lab Routine Open wound of right wrist, subsequent encounter Surgical site infection weekly and PRN for 24 Occurrences starting 12/26/2023 until 12/25/2024 documented as of this encounter Visit Diagnoses Diagnosis Open wound of right wrist, subsequent encounter- Primary Surgical site infection documented in this encounter Care Teams Jewel Inserter Relationship Specialty Start Date End Date Mariana Abel FNP [address] [place] [address] PCP - General Family Medicine - Primary Care 07/03/23 documented as of this encounter
--- OUTSIDE RECORDS SUMMARY | 2024-02-20 17:23 | XMS_ITS | Encounter Summary ---
Author Organization [facility] Address [address] [place] [address] Care Team Providers Care Operational Review Sergeant Name Role Phone Mariana Abel LENS INSERTER Primary Care Provider Reason for Visit * Reason Onset Date Comments Results 12/27/2023 Vanc trough Encounter Details Date Type Department Care Team (Late st Contact Info) Description 12/27/2023 Telephone [facility] Infectious Disease [address] [place] [address] Ayana Lambert, RN [address] [place], [place] [id number] Results (Vanc trough) Social History Tobacco Use Types Packs/Day Years [...] Miscellaneous Notes * Telephone Encounter - Ayana Lambert RN - 12/30/2023 1237 EST New TE created * Telephone Encounter - Allan Jacobs - 12/30/2023 1101 EST Stacie @ [facility] calling to discuss patient. * Telephone Encounter - Cortney Brush MD - 12/30/2023 0946 EST Noted thanks. * Telephone Encounter - Ayana Lambert RN - 12/27/2023 1616 EST Patient notified to continue current dose. He will have vanc trough and labs drawn at 8 am Saturday. PICC line dressing change scheduled for 11am Saturday. His PICC clogged this morning and had to go see IV therapy for cathflow, he only got 1/2 his AM dose. Advised he go to ER over the weekend if line clogs again. He may need a new line. Patient verbalized understanding * Telephone Encounter - Ayana Lambert RN - 12/27/[address] Brush notified via secure chat. She does not want to make any changes now since AUC is in the 400-600 range. We will review Saturday labs. * Telephone Encounter - Ayana Lambert RN - 12/27/2023 1608 EST Stacie from [facility] called stating AUC is 492, and recommends doing 1250mg every 8 hours (currently on 1750mg every 12 hours). They also are skeptical on his adherence to the regime. * Telephone Encounter - Ayana Lambert RN - 12/27/2023 1427 EST LM for Mary Alice at [facility] for AUC and dose recommendations. * Telephone Encounter - Cortney Brush MD - 12/27/2023 1149 EST Creatinine 0.77 ALT 55 (high) WBC 4.82 CRP 2.39 mg/L Vanc trough 6.9 Trough is low. We'll need to call [facility] to calculate the AUC and adjust the dose. documented in this encounter Plan of Treatment Not on file documented as of this encounter Visit Diagnoses Not on filedocumented in this encounter Care Teams Operational Review Sergeant Relationship Specialty Start Date End Date Mariana Abel FNP [address] [place] [phone] PCP - General Family Medicine - Primary Care 07/03/23 documented as of this encounter
--- OUTSIDE RECORDS SUMMARY | 2024-02-20 17:23 | XMS_ITS | Encounter Summary ---
Author Organization 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 for uncontrolled blood sugars Encounter Details Date Type Department Care Team (Late st Contact Info) Description 07/17/2019 15:00 EDT Nurse Only [facility] Endocrinology [address] [place] [address] Jackelin Stoner, RN [address] [place] [address] Type 2 diabetes mellitus with hyperglycemia, without long-term current use of insulin ([facility]) (Primary Dx) Social History Tobacco Use Types [...] Sign Reading Time Taken Comments Blood Pressure - - Pulse - - Temperature - - Respiratory Rate - - Oxygen Saturation - - Inhaled Oxygen Concentration - - Weight 135.4 kg (298 lb 9.6 oz) 07/17/2019 1540 EDT Height 180.3 cm (5' 11) 07/17/2019 1540 EDT Body Mass Index 41.65 07/17/2019 1540 EDT documented in this encounter Functional Status [...] documented in this encounter Progress Notes * Jackelin Stoner, RN - 07/17/2019 1500 EDT Diabetes Education Note Change in Regimen Length of Visit: 30 minutes Visit type: Office Diagnosed with DM : 2013 Latest A1c: 07/15/2019; 9.6% Triglycerides: 533 ROS: Checks Blood sugars: Not checking SBGM results: Hypoglycemia: None Current regimen: Metformin, Januvia, Victoza, Glimepiride. Diet Hx: Breakfast: Macedonian muffin with butter and peanut butter, a very large chocolate milk Lunch: 2 sandwiches Supper: Pasta with meat sauce and 2 slices of bread and butter Snacks: Freezer pops Beverages: Milk, diet soda and Gatorade 0 . 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 He admits to depression and has had a history of depression in the past. Antidepressant recently increased. His weightis up 5 pounds. With the increased depression and COVID restrictions he has been comfort feeding. He just picked up his new meter. He does not think he can do 4 times a day but he thinks he can do breakfast and before dinner checks. Because his intake is so large that his portions I suggested he measure to find out where he starting from gradually wean back. For him 30-75 grams of carb per meal would not be unreasonable if he can lean back to that. Stage of change: Action/preparation. Motivation 10. Comprehension 10. Symptoms: Denies Copays:Victoza and $150 per month. Given information to go on the website to get a discount card. He has MVP. Stage of change: action/preparation. Motivation 10. Comprehension 10. Plan: Check blood sugars before breakfast and supper. Bring One Touch ultra 2 meter to endocrinology visit with him. Next Visit: With endocrinology documented in this encounter Plan of Treatment Not on file documented as of this encounter Visit Diagnoses Diagnosis Type 2 diabetes mellitus with hyperglycemia, without long-term current use of insulin ([facility])- Primary documented in this encounter Discontinued Medications Medication Sig Discontinue Reason Start Date End Da te buPROPion (WELLBUTRIN) 100 mg tablet Take by mouth 2 times daily. Alternate therapy 07/17/2019 documented as of this encounter Care Teams Forest Law And Policy Professor Relationship Specialty Start Date End Date Arturo Palomo MD PCP - General 11/17/16 07/02/23 documented as of this encounter
--- OUTSIDE RECORDS SUMMARY | 2024-02-20 17:23 | XMS_ITS | Encounter Summary ---
Author Organization [facility] Address [address] [place] [address] Care Team Providers Care Machine Tack Puller Name Role Phone Arturo Palomo MD Primary Care Provider [phone] Encounter Details Date Type Department Care Team (Late st Contact Info) Description 11/04/2019 Orders Only [facility] Endocrinology [address] [place], [place] [id number] Mariah Young RN Type 2 diabetes mellitus with hyperglycemia, with long-term current use of insulin ([facility]) (Primary Dx) Social History Tobacco Use Types [...] 07/17/2019 15:41 EDT documented in this encounter Plan of Treatment Not on file documented as of this encounter Visit Diagnoses Diagnosis Type 2 diabetes mellitus with hyperglycemia, with long-term current use of insulin ([facility])- Primary documented in this encounter Care Teams Machine Tack Puller Relationship Specialty Start Date End Date Arturo Palomo MD PCP - General 11/17/16 07/02/23 documented as of this encounter
--- OUTSIDE RECORDS SUMMARY | 2024-02-20 17:23 | XMS_ITS | Encounter Summary ---
Author Organization [facility] Address [address] [place] [address] Care Team Providers Care Dye Range Operator Cloth Name Role Phone Colten Mariana S LOG CHAIN WORKER Primary Care Provider [phone] Reason for Visit * Reason Comments Obesity Encounter Details Date Type Department Care Team (Late st Contact Info) Description 07/03/2023 9:00 EDT Education [facility] Bariatric Surgery [facility] [address] [place] [address] Morbid obesity (HCC-CMS) (Primary Dx) Social History Tobacco Use Types [...] documented in this encounter Progress Notes * Domo Dias MA - 07/03/2023 0900 EDT Khris Johnson Miladys 1980 arrived for the Metabolic and Bariatric Surgery Program Online Introductory Class. All program requirements, surgical procedures including risks and benefits, and insuranceapproval process reviewed in detail. Power point presentation, verbal instruction, and handouts provided during the class. At the end ofthe class the patient is asked to complete the second part of the health questionnaire and are provided food logs and insurance benefit verification form to complete. Patient is advised when they come for the psychological evaluation they must bring the completed food diary as well as the insurancebenefit verification form. Khris Johnson Hook was given an appointment with Annette Martínez the program psychologist which is the next step in the Metabolic and Bariatric Surgery Program. documented in this encounter Plan of Treatment Not on file documented as of this encounter Visit Diagnoses Diagnosis Morbid obesity ([facility])- Primary Morbid obesity documented in this encounter Care Teams Dye Range Operator Cloth Relationship Specialty Start Date End Date Mariana Abel FNP [address] [place] [phone] PCP - General Family Medicine - Primary Care 07/03/23 documented as of this encounter
--- OUTSIDE RECORDS SUMMARY | 2024-02-20 17:23 | XMS_ITS | Encounter Summary ---
Author Organization [facility] Address [address] [place] [address] Care Team Providers Care Senior Chemist Name Role Phone Mariana Abel PACKING MACHINE PILOT CAN ROUTER Primary Care Provider [phone] Reason for Visit * Reason Onset Date Comments Home IV Antibiotics 12/30/2023 Results 12/30/2023 Encounter Details Date Type Department Care Team (Late st Contact Info) Description 12/30/2023 Telephone [facility] [place]ious Disease [address] [place] [address] Ayana Lambert, RN [address] [place], [place] [id number] Home IV Antibiotics; Results Social History Tobacco Use Types Packs/Day Years [...] Telephone Encounter - Ayana Lambert RN - 12/31/2023 1227 EST Stacie confirmed message to d/c IV vancomycin. * Telephone Encounter - Ayana Lambert RN - 12/30/2023 1456 EST Patient notified of both options. His Vancomycin infusions are taking 5 hours again and cannot do this every 8 hours. He opted for daily infusions at [facility] of Daptomycin. Will move forward with getting this set up. Will see if PA is needed, otherwise we are unable to give estimate on cost. Patientverbalized understanding. Left message for Stacie at [facility] stating we are ending the Vancomycin and he will be doing outpatient Daptomycin at [facility]. * Telephone Encounter - Ayana Lambert RN - 12/30/2023 1428 EST Discussed verbally with Dr. Brush. Patient may not be able to do every 8 hour infusions d/t work. Other option is doing daily daptomycin 10mg/kg, this could be done at [facility] where his labs and PICC line dressing changes are being done. * Telephone Encounter - Ayana Lambert RN - 12/30/2023 1427 EST Stacie at [facility] reported current AUC at 363, suggests increase to 1500mg every 8 hours. She needs to send out more medication for patient and would like a plan by 3pm. * Telephone Encounter - Cortney Brush MD - 12/30/2023 1257 EST 12/29: WBC 5.42 Cre: 0.78 CRP 2.27 mg/L Vanc trough 8.3 Need to calculate AUC and adjust to get to 400-600 * Telephone Encounter - Ayana Lambert RN - 12/30/2023 1237 EST Lab results printed and on desk for review. * Telephone Encounter - Ayana Lambert RN - 12/30/2023 1237 EST Images from the original note were not included. documented in this encounter Plan of Treatment Not on file documented as of this encounter Visit Diagnoses Not on filedocumented in this encounter Care Teams Senior Chemist Relationship Specialty Start Date End Date Mariana Abel FNP [address] [place] [phone] PCP - General Family Medicine - Primary Care 07/03/23 documented as of this encounter
--- OUTSIDE RECORDS SUMMARY | 2024-02-20 17:23 | XMS_ITS | Encounter Summary ---
Author Organization [facility] Address [address] [place] [address] Care Team Providers Care Internal Grinder Set Up Operator Name Role Phone Arturo Palomo MD Primary Care Provider [phone] Reason for Visit * Reason Comments New Patient Visit Encounter Details Date Type Department Care Team (Late st Contact Info) Description 08/25/2019 11:30 EDT Office Visit [facility] Endocrinology [address] [place] [address] Glendy Jones MD [address] [facility] [address] [place] [address] Type 2 diabetes mellitus with hyperglycemia, without long-term current use of insulin ([facility]) (Primary Dx) Social History Tobacco Use Types [...] of Binge Drinking Not on file 08/11 Sex and Gender Information Value Date Recorded Sex Assigned at Male 01/01/2024 12:07 EST Legal Sex Male 22:06 EDT Gender Identity Male 05/17/2020 9:08 EDT Sexual Orientation Not on file documented as of this encounter Last Filed Vital Signs Vital Sign Reading Time Taken Comments Blood Pressure 130/84 08/25/2019 1128 EDT Pulse 78 08/25/2019 1128 EDT Temperature - - Respiratory Rate - - Oxygen Saturation - - Inhaled Oxygen Concentration - - Weight 131.4 kg (289 lb 9.6 oz) 08/25/2019 1128 EDT Height 180.3 cm (5' 11) 08/25/2019 1128 EDT Body Mass Index 40.39 08/25/2019 1128 EDT documented in this encounter Functional Status [...] Refills Last Filled Start Date End Date insulin degludec (TRESIBA FLEXTOUCH U-100) 100 unit/ml (3ml) insulin pen Inject 10 Units into the skin daily for 30 days. 5 Pen 1 08/25/2019 09/24/2019 empagliflozin (JARDIANCE) 10 mg tablet Take 1 Tab by mouth daily. 30 Tab 1 08/25/2019 10/21/2019 documented in this encounter Progress Notes * Mariah Young RN - 08/25/2019 1130 EDT Last A1c-9.6 07/15/2019 Last foot exam- Last eye exam * Glendy Mcfadden MD - 08/25/2019 1130 EDT 08/25/2019 NEW PATIENT PATIENT: Khris Hook CHIEF COMPLAINT New Patient Visit HISTORY OF PRESENT ILLNESS Khris Hook is a very pleasant 39 y.o. male who presents for consultation for type 2 DM. Diagnosed in 2011. Has had intermittent good control in the past. Patient deals with depression. Arturo Palomo manages this problem. Patient says he was diagnosed with bipolar a year ago. Takes 200 mg a day. Reports knee pain which limits his ability to lose weight. Meds: uses glipizide 2 mg BID, metformin 1000 mg BID, victoza 1.8 mg SC daily. SMBG: forgot meter, checking twice a day before breakfast runs in the 240, before dinner 190-200 mg/dl. Diet: 3 meals a day, has met with Ramonita in July. Reports has cut down his portions and is eating more salads. 24 h recall: bagel + PB + gatorade zero, lunch (chips/sandwich), dinner (pork chops and salad). 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 HPI PAST HISTORY Past Medical History: Diagnosis Date ??? Diabetes mellitus ([facility]) Past Surgical History: Procedure Laterality Date ??? EYE SURGERY Family History Problem Relation Age of Onset ??? Diabetes Father ??? Heart Disease Father Social History Tobacco Use ??? Smoking status: Never Smoker ??? Smokeless tobacco: Never Used Substance Use Topics ??? Alcohol use: Never Frequency: Never ??? Drug use: No MEDICATIONS Current Outpatient Medications Medication Sig Dispense Refill ??? aspirin chewable 81 mg tablet Take 81 mg by mouth daily. ??? atorvastatin (LIPITOR) 40 mg tablet Take 40 mg by mouth daily. ??? blood glucose meter (ONETOUCH VERIO FLEX METER) every 12 hours. ??? buPROPion (WELLBUTRIN XL) 150 mg XL tablet TAKE 1 TABLET BY MOUTH EVERY DAY IN THE MORNING ??? busPIRone (BUSPAR) 10 mg tablet Take 10 mg by mouth 3 times daily. ??? famotidine (PEPCID) 40 mg tablet Take 40 mg by mouth daily. ??? glimepiride (AMARYL) 2 mg tablet Take 2 mg by mouth 2 times daily. ??? indomethacin (INDOCIN) 50 mg capsule Take by mouth 3 times daily. ??? lamoTRIgine (LAMICTAL) 25 mg tablet Take 150 mg by mouth daily. ??? lancets every 12 hours. ??? liraglutide (VICTOZA 3-CRUZITO) 0.6 mg/0.1 mL (18 mg/3 mL) injectable pen Inject 1.8 mg into the skin daily. ??? lisinopril (PRINIVIL, ZESTRIL) 10 mg tablet Take 20 mg by mouth daily. ??? meloxicam (MOBIC) 15 mg tablet Take 15 mg by mouth daily. ??? metFORMIN (GLUCOPHAGE) 500 mg tablet Take 1,000 mg by mouth 2 times daily. ??? montelukast (SINGULAIR) 10 mg tablet Take 10 mg by mouth daily. ??? ONETOUCH ULTRA BLUE TEST STRIP test strips USE TO CHECK BLOOD SUGAR BEFORE MEALS AND AT BEDTIME ??? sertraline (ZOLOFT) 50 mg tablet Take 50 mg by mouth daily. ??? traZODone (DESYREL) 100 mg tablet Take 150 mg by mouth at bedtime. ??? traZODone (DESYREL) 50 mg tablet Take 50 mg by mouth at bedtime. ??? UBIDECAR/VIT B6/B12/B5/MGOX (RX BALANCE STATIN ORAL) Take 1 Tab by mouth daily. No current facility-administered medications for this visit. ALLERGIES No Known Allergies REVIEW OF SYSTEMS Constitutional: Negative for chills, fever and weight loss. HENT: Negative for sore throat. Eyes: Positive for blurred vision. Negative for double vision. Respiratory: Negative for cough and shortness of breath. Cardiovascular: Negative for chest pain and palpitations. Gastrointestinal: Positive for nausea. Negative for vomiting. Genitourinary: Negative for dysuria. Musculoskeletal: Positive for joint pain. Neurological: Negative for tingling, tremors and headaches. Endo/Heme/Allergies: Does not bruise/bleed easily. Psychiatric/Behavioral: Positive for depression. VITALS Vitals: 08/25/19 1128 BP: 130/84 Pulse: 78 Weight: (!) 131.4 kg (289 lb 9.6 oz) Height: 180.3 cm (71) PHYSICAL EXAM Vitals reviewed.Constitutional: He is oriented to person, place, and time. He appears well-developed and well-nourished. HENT: Head: Normocephalic and atraumatic. Eyes: Pupils are equal, round, and reactive to light. Neck: Normal range of motion. Neck supple. No JVD present. No tracheal deviation present. No thyromegaly present. Cardiovascular: Normal rate and regular rhythm. Pulmonary/Chest: Effort normal and breath sounds normal. Abdominal: Soft. Bowel sounds are normal. He exhibits no distension. There is no tenderness. Musculoskeletal: He exhibits no edema. Lymphadenopathy: He has no cervical adenopathy. Neurological: He is alert and oriented to person, place, and time. Skin: Skin is warm and dry. Psychiatric: He has a normal mood and affect. ASSESSMENT ICD-10-CM ICD-9-CM 1. Type 2 diabetes mellitus with hyperglycemia, without long-term current use of insulin ([facility]) E11.65 250.00 790.29 Poorly controlled specially due to lack of activity and dietary indiscretions. -Advise to get a therapist, otherwise he will be facing all his life depression and that will set him up for failure - Start insulin 10 units a day - Start Jardiance 10 mg a day. Repeat BMP in 4 weeks - Continue victoza, glimepiride and metformin - Repeat lipid panel before next visit - Obtain microalbuminuria - BP at goal for now - Surgical options were discussed today - Continue checking fingerstick twice a day, bring meter to office Glendy Beltre MD 08/25/2019 12:20 * Jean Marie Stoner RN - 08/25/2019 1130 EDT Results for orders placed or performed in visit on 08/25/19 POCT HEMOGLOBIN A1C Result Value Ref Range Hemoglobin A1c, POC 13.5 (A) 5.7 % documented in this encounter Miscellaneous Notes * Addendum Note - Jean Marie Stoner RN - 08/25/2019 1130 EDTAddended by: JEAN MARIE STONER on: 08/25/2019 13:04 Modules accepted: Orders documented in this encounter Plan of Treatment Not on file documented as of this encounter Procedures Procedure Name Priority Date/Time Associated Diagnosis Comments POCT HEMOGLOBIN A1C Routine 08/25/2019 Type 2 diabetes mellitus with hyperglycemia, without long-term current use of insulin ([facility]) documented in this encounter Results * (ABNORMAL) POCT HEMOGLOBIN A1C (08/25/2019) Hemoglobin A1c, POC 13.5(A) <=5.7 % [facility] Blood CAPILLARY BLOOD / Unknown 08/25/2019 Glendy Jones MD POINT OF CARE TEST ORDERABLES Final Result [facility] documented in this encounter Visit Diagnoses Diagnosis Type 2 diabetes mellitus with hyperglycemia, without long-term current use of insulin ([facility])- Primary documented in this encounter Discontinued Medications Medication Sig Discontinue Reason Start Date End Da te sitaGLIPtin (JANUVIA) 100 mg tablet Take 100 mg by mouth daily. 08/25/2019 busPIRone (BUSPAR) 10 mg tablet every 12 hours. Duplicate order 08/25/2019 FLUoxetine (PROZAC) 10 mg capsule 1 cap(s) Duplicate order 12/09/2018 08/25/2019 sertraline (ZOLOFT) 100 mg tablet Take 100 mg by mouth daily. Duplicate order 08/25/2019 citalopram (CELEXA) 20 mg tablet Take 20 mg by mouth daily. Duplicate order 08/25/2019 ibuprofen (MOTRIN) 600 mg tablet Take 600 mg by mouth 3 times daily. Duplicate order 06/30/2019 08/25/2019 atorvastatin (LIPITOR) 40 mg tablet 1 tab(s) Duplicate order 08/25/2019 SITagliptin (JANUVIA) 100 mg tablet 1 tab(s) Alternate therapy 08/25/2019 documented as of this encounter Historical Medications * This list may reflect changes made after this encounter. indomethacin (INDOCIN) 50 mg capsule Take by mouth 3 times daily. 08/18/2019 famotidine (PEPCID) 40 mg tablet Take 1 Tablet by mouth daily. 07/28/2019 ONETOUCH ULTRA BLUE TEST STRIP test strips USE TO CHECK BLOOD SUGAR BEFORE MEALS AND AT BEDTIME 07/16/2019 lancets every 12 hours. 10/16/2018 blood glucose meter (ONETOUCH VERIO FLEX METER) every 12 hours. 10/16/2018 atorvastatin (LIPITOR) 40 mg tablet 1 tab(s) 08/25/2019 ibuprofen (MOTRIN) 600 mg tablet Take 600 mg by mouth 3 times daily. 06/30/2019 08/25/2019 FLUoxetine (PROZAC) 10 mg capsule 1 cap(s) 12/09/2018 08/25/2019 busPIRone (BUSPAR) 10 mg tablet Take 10 mg by mouth 3 times daily. 05/29/2019 12/18/2023 busPIRone (BUSPAR) 10 mg tablet every 12 hours. 08/25/2019 buPROPion (WELLBUTRIN XL) 150 mg XL tablet TAKE 1 TABLET BY MOUTH EVERY DAY IN THE MORNING 06/30/2019 12/18/2023 SITagliptin (JANUVIA) 100 mg tablet 1 tab(s) 08/25/2019 added in this encounter Care Teams Internal Grinder Set Up Operator Relationship Specialty Start Date End Date Arturo Palomo MD PCP - General 11/17/16 07/02/23 documented as of this encounter
--- OUTSIDE RECORDS SUMMARY | 2024-02-20 17:23 | XMS_ITS | Encounter Summary ---
Author Organization [facility] Address [address] [place] [address] Care Team Providers Care Paper Goods Machine Set Up Operator Name Role Phone Gopiedgardo Mariana Amanda SALES AND MARKETING ANALYST Primary Care Provider Encounter Details Date Type Department Care Team (Late st Contact Info) Description 08/30/2023 Lab Requisition [facility] Pathology & Laboratory Medicine - [facility] [address] [place] [address] Outr Resulting Lab, Provider Social History Tobacco Use Types Packs/Day Years [...] Procedure Name Priority Date/Time Associated Diagnosis Comments ANAEROBE CULTURE, REFERENCE Routine 08/30/2023 16:47 EDT documented in this encounter Results * ANAEROBE CULTURE, REFERENCE (08/30/2023 16:47 EDT) Organism ID No Anaerobes Isolated 09/09/2023 11:28 EDT [facility] Tissue UPPER LIMB STRUCTURE / Unknown 08/30/2023 16:47 EDT 08/30/2023 19:07 EDT us Provider Outr Resulting Lab MICROBIOLOGY - GENER AL ORDERABLES Final Result [facility] [address] [place] [id number] documented in this encounter Visit Diagnoses Not on filedocumented in this encounter Care Teams Paper Goods Machine Set Up Operator Relationship Specialty Start Date End Date Mariana Abel FNP [address] [place] [phone] PCP - General Family Medicine - Primary Care 07/03/23 documented as of this encounter
--- OUTSIDE RECORDS SUMMARY | 2024-02-20 17:23 | XMS_ITS | Encounter Summary ---
Author Organization [facility] Address [address] [place] [address] Care Team Providers Care Flake Drier Name Role Phone Mariana Abel VERIFICATION LEAD Primary Care Provider Reason for Visit * Reason Onset Date Comments IV Antibiotic 12/31/2023 Encounter Details Date Type Department Care Team (Late st Contact Info) Description 12/31/2023 Telephone [facility] Infectious Disease [address] [place] [address] Ayana Lambert, RN [address] [place], [place] [phone] IV Antibiotic Social History Tobacco Use Types Packs/Day Years [...] Encounter - Ayana Lambert RN - 12/31/2023 1611 EST Katherine at [facility] confirmed that patient is scheduled 01/01/24 at 8am for daptomycin infusion, and will come daily through 01/21/24. * Telephone Encounter - Ayana Lambert RN - 12/31/2023 1227 EST Orders, therapy plan, and md notes faxed to [facility]. * Telephone Encounter - Ayana Lambert RN - 12/31/2023 1058 EST Therapy plan created MD orders/letter created for [facility] Will fax with MD note once complete. * Telephone Encounter - Ayana Lambert RN - 12/31/2023 0931 EST New OPAT orders received by Dr. Brush in the outpatient setting: END: 01/21/24 LAST LABS: 12/30/23 OPAT Orders1 ID Diagnosis: R wrist infection after CTR, flexor tendon exposed Micro: MRSA Antibiotics: IV Daptomycin 8mg/kg every 24 hours (based on ideal body weight) Start date: 12/10/23 (dapto start 12/31) End date: 01/21/24 (6 weeks) Weekly labs on Mondays: CBC, BMP, CRP Line: PICC right Plan Location: [place] [phone] Infusion method: IV Line: PICC right Pharmacy: [facility] Auth Insurance: [facility] H[facility]/POS Name of industrial relations representative: Arianna K Ref#: [id number] Codes checked: IV infusion- 97361, 03670- Codes valid and billable, no PA needed. Daptomycin- J0878- Code valid and billable, no PA needed for on-label use, must be medically necessary. Scheduling SDS first dose: Medicare Notes: - SDS infusion covered by Medicare, may have a 20% copay for med/procedure. - Home IV antibiotics supplies not covered by Medicare, responsible for $30/day for supplies and the copay for medication. - Medicare patients must be home bound to receive home health services. - Medicare (proper) does not PA services. If Medicare coverage is through Social[employer], [employer], etc. Call to see if MEDICAL PA is needed for CPT/J-codes. documented in this encounter Plan of Treatment Not on file documented as of this encounter Visit Diagnoses Diagnosis Open wound of right wrist, subsequent encounter- Primary Surgical site infection documented in this encounter Care Teams Flake Drier Relationship Specialty Start Date End Date Mariana Abel FNP [address] [place] [address] PCP - General Family Medicine - Primary Care 07/03/23 documented as of this encounter
--- OUTSIDE RECORDS SUMMARY | 2024-02-20 17:23 | XMS_ITS | Encounter Summary ---
Author Organization [facility] Address [address] [place] [address] Care Team Providers Care Bread Stacker Name Role Phone Mariana Abel [facility] Primary Care Provider [phone] Reason for Visit * Reason Comments Obesity * Consult, Test and Treat (Routine) - Receiving Office to Obtain Authorization Specialty Diagnoses / Procedures Referred By Louis pickett Referred To Contact Bariatric Medicine / Bariatrics Diagnoses Morbid (severe) obesity due to excess calories ([facility]) Mariana Abel [facility] [address] [place] [address] Phone: tel: fax: [facility] Bariatric Surgery [address] [address] Phone: tel: fax: Referral ID Status Reason Start Date Expiration Date Visits Requested Visits Authorized [id number] Receiving Office to Obtain Authorization Specialty Services Required 1 1 Encounter Details Date Type Department Care Team (Late st Contact Info) Description 07/05/2023 15:30 EDT Office Visit [facility] Bariatric Surgery [facility] [address] [place], [place] [phone] Annette Martínez, PhD [address] [place] [phone] Adjustment disorder, unspecified type (Primary Dx) Social History Tobacco Use Types [...] - Inhaled Oxygen Concentration - - Weight 145.5 kg (320 lb 12.8 oz) 07/05/2023 1519 EDT Height 180.3 cm (5' 10.98) 07/05/2023 1519 EDT Body Mass Index 44.76 07/05/2023 1519 EDT documented in this encounter Functional Status [...] documented in this encounter Progress Notes * Annette Martínez, PhD - 07/05/2023 1530 EDT Bariatric Surgery Program Behavioral Health Evaluation Patients Name: Khris Hook Date of Service: 07/05/2023 Type of Service: PSYCHIATRIC DX INTERVIEW EXAM Length of Session: 30 minutes Primary Care Provider: Mariana Abel Referred By: Dr. Abel Limits of Confidentiality Reviewed: Yes Objective Measures Administered: BDI-II & AUDIT PURPOSE: To identify psychosocial contraindications to Bariatric Surgery and to make recommendations aimed at facilitating the best possible outcome for the patient. HISTORY OF PRESENT ILLNESS: A. Current Weight: 321 pounds B. Highest Adult Weight: 321 pounds C. Lowest Adult Weight: 250 pounds D. Reasons for Seeking Surgery: Pt reported unsuccessful attempts at losing weight in the past E. Expectations of Surgery: Pt expects improved health and Pt expects to have to take fewer/less medication(s) F. Eating Behaviors: poor food choices, large portion sizes, and binge eating G. Dieting History: 1. Pt reported following a diet on his/her own 2. Has anything worked well? No What was it that made that method helpful? N/A 3. What factors led to regaining weight? N/A PERTINENT MEDICAL HISTORY: Past Medical History: Diagnosis Date Diabetes mellitus ([facility]) CURRENT MEDICATIONS: Current Outpatient Medications: aspirin chewable 81 mg tablet, Take 81 mg by mouth daily., Disp: , Rfl: atorvastatin (LIPITOR) 40 mg tablet, Take 40 mg by mouth daily., Disp: , Rfl: blood glucose meter (ONEDindongUCH VERIO FLEX METER), every 12 hours., Disp: , Rfl: buPROPion (WELLBUTRIN XL) 150 mg XL tablet, TAKE 1 TABLET BY MOUTH EVERY DAY IN THE MORNING, Disp: , Rfl: busPIRone (BUSPAR) 10 mg tablet, Take 10 mg by mouth 3 times daily., Disp: , Rfl: empagliflozin (JARDIANCE) 25 mg tablet, Take 25 mg by mouth daily., Disp: , Rfl: famotidine (PEPCID) 40 mg tablet, Take 40 mg by mouth daily., Disp: , Rfl: glimepiride (AMARYL) 2 mg tablet, Take 2 mg by mouth 2 times daily. , Disp: , Rfl: indomethacin (INDOCIN) 50 mg capsule, Take by mouth 3 times daily., Disp: , Rfl: insulin aspart U-100 (NOVOLOG FLEXPEN) 100 unit/mL (3 mL) injectable pen, Inject 3 Units into the skin daily. 3 u with dinner, Disp: , Rfl: insulin degludec (TRESIBA FLEXTOUCH U-100) 100 unit/ml (3ml) insulin pen, 18 Units daily., Disp: , Rfl: lamoTRIgine (LAMICTAL) 25 mg tablet, Take 150 mg by mouth daily. , Disp: , Rfl: lancets, every 12 hours., Disp: , Rfl: liraglutide (VICTOZA 3-CRUZITO) 0.6 mg/0.1 mL (18 mg/3 mL) injectable pen, Inject 1.8 mg into the skin daily., Disp: 9 Pen, Rfl: 3 lisinopril (PRINIVIL, ZESTRIL) 10 mg tablet, Take 20 mg by mouth daily. , Disp: , Rfl: meloxicam (MOBIC) 15 mg tablet, Take 15 mg by mouth daily., Disp: , Rfl: metFORMIN (GLUCOPHAGE) 500 mg tablet, Take 1,000 mg by mouth 2 times daily. , Disp: , Rfl: montelukast (SINGULAIR) 10 mg tablet, Take 10 mg by mouth daily., Disp: , Rfl: ONETOUCH ULTRA BLUE TEST STRIP test strips, USE TO CHECK BLOOD SUGAR BEFORE MEALS AND AT BEDTIME, Disp: , Rfl: sertraline (ZOLOFT) 100 mg tablet, Take 200 mg by mouth daily. , Disp: , Rfl: traZODone (DESYREL) 100 mg tablet, Take 150 mg by mouth at bedtime. , Disp: , Rfl: traZODone (DESYREL) 50 mg tablet, Take 50 mg by mouth at bedtime. , Disp: , Rfl: UBIDECAR/VIT B6/B12/B5/MGOX (RX BALANCE STATIN ORAL), Take 1 Tab by mouth daily. , Disp: , Rfl: ADHERENCE TO POST-SURGICAL REGIMEN: 1. How will it be for you to change your eating patterns? Pt stated that he always feels hungry andis hoping that he can be successful if surgery curbs his hunger. Do you worry that you will have feelings of loss or deprivation? No 2. If you have had trouble limiting your eating in the past, what will make it different if you have surgery? Motivation to improve health and quality of life 3. If you have coped with emotions in the past by eating, what other coping strategies will you useif you have surgery? N/A 4. How will your living environment affect your attempts to eat healthfully? Not a problem. Girlfriend supports pt's efforts to change his eating habits 5. Will your daily schedule of work or other responsibilities allow you to eat frequently and healthfully and to engage in frequent physical activity? Yes RELATIONSHIPS / SUPPORT SYSTEM: 1. How do your friends and family feel about your desire to have bariatric surgery? They are supportive. 2. Who will be available to help care for you immediately after surgery? girlfriend 3. If you are successful in losing weight, how might this affect your relationships? Pt doesn't expect any changes 4. Is there anyone who might feel unhappy or uncomfortable with your weight loss? No CURRENT PSYCHIATRIC HISTORY: Current Mood Problems: Pt reported experiencing problems with mood. Pt described: diagnosed with bipolar disorder, following the loss of his father. Pt reports that his mood has been stable. Suicidal Ideation/Attempts: none Homicidal Ideation: No homicidal thoughts Current Psychiatric Treatment: medications (zoloft, lamictal, trazadone) Significant Stressors in Past Year: none PAST PSYCHIATRIC HISTORY: Previous Psychiatric Treatment: None History of Psychiatric Hospitalization: No History of Depression: diagnosis of bipolar disorder, depressive symptoms History of Anxiety: Pt states that he worries about the health consequences of his weight Past Suicidal Ideation/Attempts: Yes - after his father - pt had thoughts of why am I here, it should have been me, for a couple of weeks. Past use of Psychopharmaceutical Medications: None FAMILY PSYCHIATRIC HISTORY: Family History of Psychiatric Problems: No Family History of Substance Abuse: No SUBSTANCE USE HISTORY: Current caffeine use: Yes Number of caffeinated drinks consumed on average per day: 3 20oz diet sodas Current alcohol use: Pt denied any alcohol use. Number of alcoholic drinks consumed on average per day: 0 Number of alcoholic drinks consumed on average per week: 0 Number of alcohol drinks typically consumed in one sittin History of alcohol use: Pt denied any history of problems with alcohol use. Current use of recreational drugs: Never History of recreational drug use: Never Current smoking habit: no History of smoking habit: no PAST FAMILY AND SOCIAL HISTORY: Marital Status: significant other Number of Children: 0 Patient Currently Lives: with significant other Patient's Mother: Living Patient's Father: Siblings: sisters: 2 Social Support Level: adequate History of Traumatic Events: No History of Physical/Sexual Abuse: Pt denied experiencing any physical or sexual abuse. EDUCATION, EMPLOYMENT, LEGAL HISTORY: Highest Level of Education Achieved: 10th grade - guidance counselor suggested that he quit school.He left and got a full-time job. 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 Legal History: No MENTAL STATUS EXAM: Appearance: well groomed Interview Behavior: cooperative Orientation: oriented to time, place, and person Eye Contact: normal Speech: normal rate Thought Process: goal-directed Thought Content: normal/relevant Suicidal: none reported Homicidal: No homicidal thoughts Memory Recent: good Memory Remote: good Mood: good Affect: normal affect Attention and Concentration: intact Sleep: sleeping well Appetite: increased appetite with c-pap Insight: good Judgment: good Cognitive Ability: good ARCHER DEPRESSION INVENTORY SCORE: 4 AUDIT: 0 ASSESSMENT: AXIS I: Adjustment Disorder unspecified (F43.20) AXIS II: none AXIS III: see medical record AXIS IV: none AXIS V: GAF equals 68 Readiness for Surgery: A. This patient appears to be psychologically capable of cooperating with and benefiting from Bariatric surgery. B. This patient is not an appropriate candidate for bariatric surgery due to the following psychosocial contraindications: N/A C. The following information is needed prior to determining the patient's appropriateness for surgery: none PLAN: Pt will be scheduled for an initial evaluation with the Bariatric surgeon. Individual psychological follow-up at the Bariatric Program is not indicated at this time. Annette Martínez, PhD 07/05/2023 15:18 Licensed Psychologist-Doctorate documented in this encounter Plan of Treatment Not on file documented as of this encounter Visit Diagnoses Diagnosis Adjustment disorder, unspecified type- Primary documented in this encounter Care Teams Bread Stacker Relationship Specialty Start Date End Date Mariana Abel FNP [address] [place] [phone] PCP - General Family Medicine - Primary Care 07/03/23 documented as of this encounter
--- OUTSIDE RECORDS SUMMARY | 2024-02-20 17:23 | XMS_ITS | Clinical Summary ---
Author Organization [facility] Address [address] [place] [address] Care Team Providers Care Fast Food Attendant Name Role Phone Mariana Abel SMOKEHOUSE WORKER Primary Care Provider Allergies Active Allergy Reactions Criticality Noted Date Comments Clindamycin Rash 12/31/2023 Medications aspirin chewable 81 mg tablet Take 1 Tablet by mouth daily. Active meloxicam (MOBIC) 15 mg tablet Take 1 Tablet by mouth daily. Active sertraline (ZOLOFT) 100 mg tablet Take 2 Tablets by mouth daily. Active montelukast (SINGULAIR) 10 mg tablet Take 1 Tablet by mouth daily. Active blood glucose meter (ONETOUCH VERIO FLEX METER) every 12 hours. 9 Active lancets every 12 hours. 9 Active ONETOUCH ULTRA BLUE TEST STRIP test strips USE TO CHECK BLOOD SUGAR BEFORE MEALS AND AT BEDTIME 0 Active famotidine (PEPCID) 40 mg tablet Take 1 Tablet by mouth daily. 0 Active indomethacin (INDOCIN) 50 mg capsule Take by mouth 3 times daily. 0 Active insulin aspart U-100 (NOVOLOG FLEXPEN) 100 unit/mL (3 mL) injectable pen Inject 3 Units into the skin daily. 3 u with dinner Active empagliflozin (JARDIANCE) 25 mg tablet Take 1 Tablet by mouth daily. Active liraglutide (VICTOZA 3-CRUZITO) 0.6 mg/0.1 mL (18 mg/3 mL) injectable pen Inject 1.8 mg into the skin daily. 9 Pen 3 1 Active Additional Information Patient not taking.Reported on 01/20/2024 acetaminophen (TYLENOL) 500 mg tablet TAKE 1-2 TABLETS BY MOUTH EVERY 8 HOURS NEEDED FOR PAIN 3 Active atorvastatin (LIPITOR) 80 mg tablet Take 1 Tablet by mouth daily. 4 Active glimepiride (AMARYL) 4 mg tablet Take 1 Tablet by mouth 2 times daily. 4 Active TRESIBA FLEXTOUCH U-200 200 unit/mL (3 mL) 200 unit/ml (3ml) insulin pen INJECT 90 UNITS EVERY DAY BY SUBCUTANEOUS ROUTE. 4 Active lamoTRIgine (LAMICTAL) 200 mg tablet Take 1 Tablet by mouth daily. 4 Active FREESTYLE STARR 3 SENSOR device Use as directed. 12/13/19 2 4 Active ezetimibe (ZETIA) 10 mg tablet Take 1 Tablet by mouth daily. 4 Active insulin lispro (HUMALOG KWIKPEN) 100 unit/mL injectable pen Inject 15 Units into the skin 3 times daily with meals. 4 Active omeprazole (PRILOSEC) 40 mg capsule Take 1 Capsule by mouth daily. 4 Active BD ULTRA-FINE MICRO PEN NEEDLE 32 gauge x 1/4 needle USE ONE NEEDLE ONCE A DAY DIRECTED 4 Active OZEMPIC 2 mg/dose (8 mg/3 mL) pen injector INJECT 2MG INTO THE SKIN ONCE WEEKLY 4 Active lisinopriL (PRINIVIL) 20 mg tablet Take 1 Tablet by mouth daily. 4 Active metFORMIN (GLUCOPHAGE-XR) 500 mg ER tablet TAKE 2 TABLETS (1000 MG) BY MOUTH TWICE A DAY, TOTAL DAILY DOSE IS 4 TABLETS (2000 MG) 4 Active traZODone (DESYREL) 150 mg tablet Take 1 Tablet by mouth at bedtime. 4 Active vancomycin 1.25 gram recon soln Inject 1,750 mg into the vein every 12 hours. Active doxycycline (VIBRAMYCIN) 100 mg capsule Take 1 Capsule by mouth 2 times daily for 28 days. 56 Capsule 4 02/23/19 25 Active Active Problems Problem Noted Date Diagnosed Date Surgical site infection 12/31/2023 Open wound of right wrist 12/31/2023 Type 2 diabetes mellitus, wi thout long-term current use of insulin ([facility]) 07/02/2019 HTN (hypertension) 07/02/2019 Hyperlipidemia 07/02/2019 Depression 07/02/2019 Encounters Date Type Department Care Team Description 01/29/2024 Telephone [facility] Infectious Disease [address] [place] [address], [place] [phone] Ayana Lambert, RN Results 01/27/2024 [facility] Infectious Disease [address] [place] [phone] Cortney Brush MD Coordination Of Care 01/20/2024 11:30 EST Telemedicine [facility] Infectious Disease [address] [place] [address], [place] [phone] Cortney Brush MD Open wound of right wrist, subsequent encounter (Primary Dx); Surgical site infection; Non-healing surgical wound, sequela; History of MRSA infection; 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; 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 01/14/2024 [facility] Infectious Disease [address] [place] [address], [place] [phone] Cortney Brush MD Other 01/07/2024 [facility] Infectious Disease [address] [place] [address], [place] [phone] Ayana Lambert RN Results 12/31/2023 10:00 EST Initial consult [facility] Infectious Disease [address] [place] [address], [place] [phone] Cortney Brush MD Non-healing surgical wound, sequela (Primary Dx); Surgical site infection; History of MRSA infection; 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; skilled nursing (current) use of antibiotics 12/31/2023 [facility] Infectious Disease [address] [place] [address], [place] [address] Ayana Lambert, RN IV Antibiotic 12/30/2023 [facility] Infectious Disease [address] [place] [address], [place] [phone] Ayana Lambert, RN Home IV Antibiotics; Results 12/27/2023 Telephone [facility] Infectious Disease [address] [facility], [place] [address] Ayana Lambert, RN Results (Vanc trough) 12/24/2023 Telephone [facility] Infectious Disease [address] [place], [place] [phone] Cortney Brush MD Results (Call [facility] redraw Vanc. trough); Labs Only 12/16/2023 Telephone [facility] Infectious Disease [address] [facility] [place] [address] Ayana Lambert, RN Appointment Related from Last 3 Months Immunizations Name Administration Dates Next Due Covid-19 mRNA Vaccine (PFIZE R COVID-19) PF 0.3 ml IM (12 yrs+) 02/24/2021,05/17/2020 Influenza Vaccine Quad (FLUZ ONE) MDV w/preserv 0.5 ml IM (6 mos+) 11/29/2016 Pneumococcal Conjugate Vacci ne 20-Valent (PCV20) (PREVNAR-20) 0.5 mL IM (6 wks+) 05/23/2022 Tdap Vaccine =>7YO IM 05/23/2022,04/17/2011 Surgical History Surgery Date Site/Laterality Comments EYE SURGERY CARPAL TUNNEL RELEASE 08/20/2023 Bilateral WRIST SURGERY 08/30/2023 Right I&D carple tunnel wound Medical History Medical History Date Comments Diabetes mellitus ([facility]) Family History Medical History Relation Comments Diabetes Father Heart Disease Father Relation Status Comments Father Mother Alive Social History Tobacco Use Types Packs/Day Years [...] 9:08 EDT Sexual Orientation Not on file Obstetrics History Last Filed Vital Signs Vital Sign Reading Time Taken Comments Blood Pressure 120/90 12/31/2023 1000 EST Pulse 84 12/31/2023 1000 EST Temperature 36.7 ??C (98.1 ??F) 12/31/2023 1000 EST Respiratory Rate 26 11/17/2016 2219 EDT Oxygen Saturation 93% 11/18/2016 0000 EDT Inhaled Oxygen Concentration - - Weight 144.2 kg (318 lb) 12/31/2023 1000 EST Height 180 cm (5' 10.87) 07/18/2023 1400 EDT Body Mass Index 44.52 07/18/2023 1400 EDT Plan of Treatment Health Maintenance Due Date Last Done Comments Hepatitis C Screen 1981 Microalbumin/Creatinine Ratio 1981 Hepatitis B Vaccine (1 of 3 - 19+ 3-dose series) 2000 Eye Exam 03/24/2020 03/24/2019 Hemoglobin A1C (Ha1C) 06/09/2020 12/10/2019, 020 Lipid Profile Screening (Cholesterol) 07/15/202005/2019 Foot Exam 08/24/2020 08/25/2019 COVID-19 Vaccine ( season) 2023, 05/17/2020 Procedures Procedure Name Priority Date/Time Associated Diagnosis Comments POCT HEMOGLOBIN A1C Routine 12/10/2019 Type 2 diabetes mellitus with hyperglycemia, without long-term current use of insulin ([facility]) from Last 3 Months or Most Recently Relevant to Health Maintenance Results * (ABNORMAL) POCT HEMOGLOBIN A1C (12/10/2019) Hemoglobin A1c, POC 8.0(A) <=5.7 % [facility] POINT OF CARE Blood CAPILLARY BLOOD / Unknown 12/10/2019 us Glendy Jones MD POINT OF CARE TEST ORDERABLES Final Result [facility] POINT OF CARE from Last 3 Months or Most Recently Relevant to Health Maintenance Insurance [facility] Care Teams Fast Food Attendant Relationship Specialty Start Date End Date Mariana Abel FNP [address] [place] [address] PCP - General Family Medicine - Primary Care 07/03/23
--- OUTSIDE RECORDS SUMMARY | 2024-02-20 17:23 | XMS_ITS | Encounter Summary ---
Author Organization [facility] Address [address] [place] [address] Care Team Providers Care Cant Hooker Name Role Phone Arturo Palomo MD Primary Care Provider [phone] Reason for Visit * Reason Onset Date Comments Medications Refill 02/18/2020 Encounter Details Date Type Department Care Team (Late st Contact Info) Description 02/18/2020 Telephone [facility] [place] [address] [place] [phone] Mariah Young RN Medications Refill Social History [...] into the skin daily. 9 Pen 3 02/18/2020 documented in this encounter Miscellaneous Notes * Telephone Encounter - Shelley Devlin - 02/24/2020 1522 EST Scheduled follow up appointment mailed letter * Telephone Encounter - Mariah Young RN - 02/18/2020 1513 EST Needs f/u schedule-thx documented in this encounter Plan of Treatment Not on file documented as of this encounter Visit Diagnoses Not on filedocumented in this encounter Discontinued Medications Medication Sig Discontinue Reason Start Date End Da te liraglutide (VICTOZA 3-CRUZITO) 0.6 mg/0.1 mL (18 mg/3 mL) injectable pen Inject 1.8 mg into the skin daily. Reorder 10/21/2019 02/18/2020 documented as of this encounter Care Teams Cant Hooker Relationship Specialty Start Date End Date Arturo Palomo MD PCP - General 11/17/16 07/02/23 documented as of this encounter
--- OUTSIDE RECORDS SUMMARY | 2024-02-20 17:23 | XMS_ITS | Encounter Summary ---
Author Organization [facility] Address [address] [place] [address] Care Team Providers Care Bass String Winder Name Role Phone Mariana Abel MUSEUM DIRECTOR Primary Care Provider Reason for Visit * Reason Onset Date Comments Coordination Of Care 01/27/2024 Encounter Details Date Type Department Care Team (Late st Contact Info) Description 01/27/2024 Telephone [facility] [place] [address] [place] [address] Cortney Brush MD [address] [facility], [address] [place] [address] Coordination Of Care Social History Tobacco Use Types Packs/Day [...] Refills Last Filled Start Date End Date doxycycline (VIBRAMYCIN) 100 mg capsule Take 1 Capsule by mouth 2 times daily for 28 days. 56 Capsule 01/27/2024 5 documented in this encounter Miscellaneous Notes * Telephone Encounter - Ayana Lambert RN - 01/27/2024 1351 EST Patient notified of plan to end IV on 02/04/24 and start oral doxy on 02/05/24. Rx to [facility] in [place]. * Telephone Encounter - Cortney Brush MD - 01/27/2024 1215 EST From today's note - sounds like the wound is healing, now 6 x 1 mm. Less serous drainage than previously. Planning to continue daily dressing changes until closed. So, let's continue with the plan tofinish IV antibiotics. And then we'll transition to PO Doxycycline 100mg BID until fully closed. * Telephone Encounter - Allan Jacobs - 01/27/2024 1143 EST Patient was seen this morning (they are faxing the note over) and also being seen tomorrow 01/27. * Telephone Encounter - Ayana Lambert RN - 01/27/2024 1133 EST D/C order faxed to [facility] infusion suite via communications. Forwarding to front for ortho appt info. * Telephone Encounter - Cortney Brush MD - 01/27/2024 1042 EST Yes. Need to touch base with Connor Ross to see how it's doing with the dressing changes and if he's going to do a sinus tract excision. Can we have the front call over the [place] [facility] to see when he's seeing them over the next 2 weeks? * Telephone Encounter - Ayana Lambert RN - 01/27/2024 1038 EST 01/20/24 office note-- continue the Dapto daily with plans to end 02/04/24. Could still consider excision of sinus tract and/or flap coverage. Could also consider sending fungal/AFB cultures though that would be quite unusual. Will follow up with Dr. Ross closer to his end date and could perhaps switch to PO Clinda/Doxy/Bactrim. Is this still the current plan? * Telephone Encounter - Allan Jacobs - 01/27/2024 1021 EST Katherine @ [facility] Infusion requesting discontinue orders for patient's PICC line. Last dose occurring 02/03. documented in this encounter Plan of Treatment Not on file documented as of this encounter Visit Diagnoses Not on filedocumented in this encounter Care Teams Bass String Winder Relationship Specialty Start Date End Date Mariana Abel FNP [address] [place] [phone] PCP - General Family Medicine - Primary Care 07/03/23 documented as of this encounter
--- OUTSIDE RECORDS SUMMARY | 2024-02-20 17:23 | XMS_ITS | Encounter Summary ---
Author Organization [facility] Address [facility] [place] [address] Care Team Providers Care Blow Mold Operator Name Role Phone Unavailable Primary Care Provider Unavailabl e Encounter Details Date Type Department Care Team (Late st Contact Info) Description 10/09/2023 Interpretation Only [facility] [address] [place] [address] Sissy Goodman MD [address] [place] [address] Social History Tobacco Use Types [...] Priority Date/Time Associated Diagnosis Comments XR CHEST PA AND LATERAL Routine 10/09/2023 4:01 PM EDT documented in this encounter Results * XR Chest PA & Lateral (Generic) (10/09/2023 4:01 PM EDT) PT CLASS I DH RAD ADMITDTTM [id number] RAD PT RAD INFO [id number]^CHERI ^SISSY^B RAD EXAM DESC XCXR2^XR CHEST 2V PA AND LATERAL^RIS RAD WORKSTATION ID [id number] RAD Anatomical Region Laterality Modality Chest N/A Radiographic Jennyfer ging Impressions 10/09/2023 4:48 PM EDT Decreased lung volumes and basilar lung opacities, most likely atelectasis. Thank you for letting us participate in the care of this patient. ??If you are a health care provider and have any questions regarding this report, please contact the number below. ??For patients who have questions please contact the health post acute care nurse that requested your imaging first. ? Electronically signed by: JASSI DESIR MD, [facility] ([phone]), at 10/09/2023 4:48 PM Narrative 10/09/2023 4:48 PM EDT EXAMINATION: XR CHEST 2V PA ??AND LATERAL CLINICAL HISTORY: ??Reason for Chest: ??SOB ??Add'l Info: Mild hypoxia TECHNIQUE: PA and lateral views of the chest COMPARISON: Chest x-ray, 12/16/2020 FINDINGS: No pneumothorax, pleural effusion, or pulmonary edema is seen. The cardiac silhouette is normal in size. The lung volumes are decreased probably due to incomplete inspiration. Linear basilar lung opacities are identified. Procedure Note Jassi Desir MD - 10/09/2023 EXAMINATION: XR CHEST 2V PA AND LATERAL CLINICAL HISTORY: Reason for Chest: SOB Add'l Info: Mild hypoxia TECHNIQUE: PA and lateral views of the chest COMPARISON: Chest x-ray, 12/16/2020 FINDINGS: No pneumothorax, pleural effusion, or pulmonary edema is seen. The cardiac silhouette is normal in size. The lung volumes are decreased probably due to incomplete inspiration.Linear basilar lung opacities are identified. IMPRESSION Decreased lung volumes and basilar lung opacities, most likelyatelectasis. Thank you for letting us participate in the care of this patient. If youare a health care provider and have any questions regarding this report,please contact the number below. For patients who have questions please contactthe health post acute care nurse that requested your imaging first. Sissy Goodman MD IMG DX ORDERABLES documented in this encounter Visit Diagnoses Not on filedocumented in this encounter
--- OUTSIDE RECORDS SUMMARY | 2024-02-20 17:23 | XMS_ITS | Encounter Summary ---
Author Organization [facility] Address [address] [place] [address] Care Team Providers Care Boarding Specialist Name Role Phone Mariana Abel WOOD DIE MAKER Primary Care Provider Reason for Visit * Reason Onset Date Comments Appointment Related 12/16/2023 Encounter Details Date Type Department Care Team (Late st Contact Info) Description 12/16/2023 Telephone [facility] Infectious Disease [address] [place] [address] Ayana Lambert, RN [address] [place], [place] [phone] Appointment Related Social History Tobacco Use Types Packs/Day Years [...] encounter Miscellaneous Notes * Telephone Encounter - Allan Jacobs - 12/20/2023 0958 EST Referral received and scanned. Will check for insurance authorization and then schedule per instructions below. * Telephone Encounter - Allan Jacobs - 12/19/2023 0951 EST Spoke to Xenia who will send over referral. * Telephone Encounter - Ayana Lambert RN - 12/19/2023 0824 EST Noted. Patient dose is unknown and he also needs an appt in 2 weeks. * Telephone Encounter - Cortney Brush MD - 12/19/2023 0727 EST OPAT Orders ID Diagnosis: R wrist infection after CTR, flexor tendon exposed Micro: MRSA Antibiotics: IV Vancomycin (?dosing) Start date: 12/10/23 End date: 01/21/24 (6 weeks) Weekly labs on Mondays: CBC, BMP, CRP, and Vanc Trough * Telephone Encounter - Ayana Lambert RN - 12/18/2023 1150 EST Records printed from [facility], chart updated. Please provide OPAT orders. * Telephone Encounter - Ayana Lambert RN - 12/16/2023 1330 EST Images from the original note were not included. documented in this encounter Plan of Treatment Not on file documented as of this encounter Visit Diagnoses Not on filedocumented in this encounter Discontinued Medications Medication Sig Discontinue Reason Start Date End Da te lisinopril (PRINIVIL, ZESTRIL) 10 mg tablet Take 2 Tablets by mouth daily. Discontinued by another clinician 12/18/2023 metFORMIN (GLUCOPHAGE) 500 mg tablet Take 2 Tablets by mouth 2 times daily. Discontinued by another clinician 12/18/2023 atorvastatin (LIPITOR) 40 mg tablet Take 1 Tablet by mouth daily. Discontinued by another clinician 12/18/2023 glimepiride (AMARYL) 2 mg tabletIndications:grabiel ng in am only Take 1 Tablet by mouth 2 times daily. Discontinued by another clinician 12/18/2023 lamoTRIgine (LAMICTAL) 25 mg tablet Take 6 Tablets by mouth daily. Discontinued by another clinician 12/18/2023 traZODone (DESYREL) 100 mg tablet Take 1.5 Tablets by mouth at bedtime. Discontinued by another clinician 12/18/2023 traZODone (DESYREL) 50 mg tablet Take 1 Tablet by mouth at bedtime. Discontinued by another clinician 12/18/2023 insulin degludec (TRESIBA FLEXTOUCH U-100) 100 unit/ml (3ml) insulin pen 18 Units daily. Discontinued by another clinician 12/18/2023 UBIDECAR/VIT B6/B12/B5/MGOX (RX BALANCE STATIN ORAL) Take 1 Tab by mouth daily. Alternate therapy 12/18/2023 buPROPion (WELLBUTRIN XL) 150 mg XL tablet TAKE 1 TABLET BY MOUTH EVERY DAY IN THE MORNING Alternate therapy 06/30/2019 12/18/2023 busPIRone (BUSPAR) 10 mg tablet Take 10 mg by mouth 3 times daily. Alternate therapy 05/29/2019 12/18/2023 documented as of this encounter Historical Medications * This list may reflect changes made after this encounter. traZODone (DESYREL) 150 mg tablet Take 1 Tablet by mouth at bedtime. 12/02/2023 metFORMIN (GLUCOPHAGE-XR) 500 mg ER tablet TAKE 2 TABLETS (1000 MG) BY MOUTH TWICE A DAY, TOTAL DAILY DOSE IS 4 TABLETS (2000 MG) 09/02/2023 lisinopriL (PRINIVIL) 20 mg tablet Take 1 Tablet by mouth daily. 11/28/2023 OZEMPIC 2 mg/dose (8 mg/3 mL) pen injector INJECT 2MG INTO THE SKIN ONCE WEEKLY 12/02/2023 BD ULTRA-FINE MICRO PEN NEEDLE 32 gauge x 1/4 needle USE ONE NEEDLE ONCE A DAY DIRECTED 06/05/2023 omeprazole (PRILOSEC) 40 mg capsule Take 1 Capsule by mouth daily. 10/18/2023 insulin lispro (HUMALOG KWIKPEN) 100 unit/mL injectable pen Inject 15 Units into the skin 3 times daily with meals. 11/06/2023 ezetimibe (ZETIA) 10 mg tablet Take 1 Tablet by mouth daily. 12/02/2023 FREESTYLE STARR 3 SENSOR device Use as directed. 12/13/2023 lamoTRIgine (LAMICTAL) 200 mg tablet Take 1 Tablet by mouth daily. 11/28/2023 TRESIBA FLEXTOUCH U-200 200 unit/mL (3 mL) 200 unit/ml (3ml) insulin pen INJECT 90 UNITS EVERY DAY BY SUBCUTANEOUS ROUTE. 12/06/2023 glimepiride (AMARYL) 4 mg tablet Take 1 Tablet by mouth 2 times daily. 11/01/2023 atorvastatin (LIPITOR) 80 mg tablet Take 1 Tablet by mouth daily. 12/02/2023 acetaminophen (TYLENOL) 500 mg tablet TAKE 1-2 TABLETS BY MOUTH EVERY 8 HOURS NEEDED FOR PAIN 01/10/2023 added in this encounter Care Teams Boarding Specialist Relationship Specialty Start Date End Date Mariana Abel FNP [address] [place] [address] PCP - General Family Medicine - Primary Care 07/03/23 documented as of this encounter
--- OUTSIDE RECORDS SUMMARY | 2024-02-20 17:23 | XMS_ITS | Encounter Summary ---
Author Organization [facility] Address [facility] [place] [address] Care Team Providers Care Business Editor Name Role Phone Unavailable Primary Care Provider Unavailabl e Encounter Details Date Type Department Care Team (Late st Contact Info) Description 10/08/2023 Interpretation Only [facility] in [address] [address] Evelina Reyes PA [address] [place] [address] Social History Tobacco Use Types Packs/Day Years Used Date Smoking Tobacco: Never Assessed Sex and Gender Information Value Date Recorded Sex Assigned at Not on file Gender Identity Not on file Sexual Orientation Not on file documented as of this encounter Plan of Treatment Not on file documented as of this encounter Procedures Procedure Name Priority Date/Time Associated Diagnosis Comments US EXTREMITY NON-VASCULAR LIMITED Routine 10/08/2023 1:48 PM EDT documented in this encounter Results * US Extremity Non-Vascular Limited (10/08/2023 1:48 PM EDT) PT CLASS I RAD ADMITDTTM [id number] RAD PT RAD MD INFO [id number]^LAMELL ^EVELINA^L RAD EXAM DESC UEXTNVLIM^US EXTREMITY LIMITED NON VASCULAR^RIS RAD WORKSTATION ID [id number] RAD Anatomical Region Laterality Modality Other 10/08/2023 1:50 PM EDT Impressions 10/08/2023 3:38 PM EDT Ultrasound was obtained and interpreted remotely, with no ability for real-time evaluation by the interpreting radiologist. In addition, there is no remote access to the patient's medical record for acquiring further clinical history. Additional branch administrator information obtained at the examination indicates incision. Presumably, this is a carpal tunnel release given the imaging findings. With all of those caveats, there is extensive tenosynovitis surrounding the entire flexor tendon bundle deep to the incision site. There is debris filled fluid at the volar margin. Significant hyperemia is present. All findings are concerning for infection. Tendons themselves appear intact. Median nerve is normal. Electronically signed by: Shaheen Martinez MD, [facility] ([phone]), at 10/08/2023 3:29 PM Thank you for letting us participate in the care of this patient. If you are a health care provider and have any questions regarding this report, please contact the number above. For patients who have questions, please contact the health furnace caretaker that requested your imaging first. ? Shaheen Martinez, Physician Electronically Signed Final Report ?? 10/08/2023 03:37 pm Narrative 10/08/2023 3:38 PM EDT Ultrasound ?(Signed Final 10/08/2023 03:37 pm) PATIENT INFO: ID #: ? [id number] ?: ??[birth year] (43 yrs)(M) Name: ? YAYA GUDINO ? Visit Date: 10/08/2023 01:50 pm PERFORMED BY: Attending: ?Shaheen Martinez MD Performed By: ? Jero KAUFMAN, Yennifer RESENDEZ Referred By: ?EVELINA REYES Location: ? [facility] SERVICE(S) PROVIDED: UEXTMSKR - Extremity Non Vascular - Right ? 68912 (Muscles - Joints) ??- [id number] INDICATIONS: Reason US: ??Right hand/wrist ??Add'l Info: Area of erythema/edema, eval for abscess Procedure Note Shaheen Martinez MD - 10/08/2023 Ultrasound (Signed Final 10/08/2023 03:37 pm) PATIENT INFO: ID #: [id number] : [birth year] (43 yrs)(M) Name: YAYA GUDINO Visit Date: 10/08/2023 01:50 pm PERFORMED BY: Attending: Shaheen Martinez MD Performed By: Jero KAUFMAN RVT, Gabrielle Referred By: EVELINA REYES Location: [facility] SERVICE(S) PROVIDED: UEXTMSKR - Extremity Non Vascular - Right 82325 (Muscles - Joints) - [id number] INDICATIONS: Reason US: Right hand/wrist Add'l Info: Area of erythema/edema, eval for abscess IMPRESSION Ultrasound was obtained and interpreted remotely, with no ability for real-time evaluation by the interpreting radiologist. In addition, there is no remote access to the patient's medical record for acquiring further clinical history. Additional branch administrator information obtained at the examination indicates incision. Presumably, this is a carpal tunnel release given the imaging findings. With all of those caveats, there is extensive tenosynovitis surrounding the entire flexor tendon bundle deep to the incision site. There is debris filled fluid at the volar margin. Significant hyperemia is present. All findings are concerning for infection. Tendons themselves appear intact. Median nerve is normal. Electronically signed by: Shaheen Martinez MD, [facility] ([phone]), at 10/08/2023 3:29 PM Thank you for letting us participate in the care of this patient. If you are a health care provider and have any questions regarding this report, please contact the number above. For patients who have questions, please contact the health furnace caretaker that requested your imaging first. Shaheen Martinez, Physician Electronically Signed Final Report 10/08/2023 03:37 pm Evelina DIALLO PACS IMAGES documented in this encounter Visit Diagnoses Not on filedocumented in this encounter
--- OUTSIDE RECORDS SUMMARY | 2024-02-20 17:23 | XMS_ITS | Encounter Summary ---
Author Organization [facility] Address [address] [place] [address] Care Team Providers Care Glassblower Name Role Phone Mariana Abel SHEEP CLIPPER Primary Care Provider [phone] Reason for Visit * Reason Comments Follow-up Pt reports taking da ptomycin ins instead of vancomycin (X2 weeks with end date of 02/03) Encounter Details Date Type Department Care Team (Late st Contact Info) Description 01/20/2024 11:30 EST Telemedicine [facility] Infectious Disease [address] [place] [id number] Cortney Brush MD [address] [place] [address] Open wound of right wrist, subsequent encounter (Primary Dx); Surgical site infection; Non-healing surgical wound, sequela; History of MRSA infection; 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; 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 who is following up for non-healing R wrist surgical site infection. I saw him initially on 12/31/23 - he has a h/o DM2, HTN, HL, L carpal tunnel release (08/06/23) and R carpal tunnel release (08/20/23). He underwent I+D of the R CTR surgial site on 08/30/23 and was treated with Keflex + Doxycycline for 4 weeks after that. He subsequently developed a fluid collection requiring repeat I+D on 10/08/23 with cultures that grew MRSA. He was placed on Levaquin + Rifampin for 30 days, but he continued to have a non- healing wound at the surgical site. [facility] and after discussion with myself, he was started on Bactrim DS 2 tabs BID. Unfortunately, he had further dehiscence and went to the ED 12/09. Flexor tendons wereexposed at the base of the wound but there was serous, non- purulent drainage. MRI was one and showed fluid around the tendons but no abscess or true collection. Normal WBC count, CRP 44 Cultures wereobtained at bedside 12/08 and showed GPCs on gram stain, but culture was negative. He was admitted to [facility], and Dr. Ross did put in a few sutures to cover the exposed tendons but left the rest of the wound open to drain. Given concerns for underlying persistent infection causing this non-healing wound, he had PICC line placed and was started on IV Vancomycin with plans to continue for 6 weeks (12/09-01/31/24). We were monitoring his labs, and his Vanc level was quite low. Rather than increasing to Q8 hour dosing at home, we decided to switch to daily Daptomycin. After our visit on 12/30, I discussed with Dr. Ross and sent him the photos I'd taken. He decided to try him in a wound vac to help with the drainage and prevent any sort of accidental contamination of the site. I most recently spoke to Dr. Ross 01/17/24 AM - It sounds like there is continued drainage, even with cast on and wound vac. Perhaps a sinus tract has developed. So we decided to extend the Daptomycin infusions by 2 weeks (new end date 02/03) and Ortho will take him back for excision of the sinus tract. Dr. Ross and I spoke again 01/16 PM - incision site improving slightly. Took repeat cultures. Few WBCs, no bacteria - culture negative. Doing casting and dressing changes daily and seems to be improving slightly. We had extended the Daptomycin and will see how it goes. Discussed possible sinus tract/fistula - possible debridement and closure vs flap. The vac was filling up even when there was a cast over it. Today, he says he's doing ok. Has a cast on. Saw Ortho this morning. He says it still has a lot of drainage coming out - changing the cast every day. Daptomycin still going ok daily. No issues with the line. No stomach upset, diarrhea, itching. Physical Exam Vital Signs: There were no vitals taken for this visit. General: NAD Skin: R wrist in a cast HEENT: AT/NC. Normal dentition. Pulm: No cough, no increased work of breathing Psych: Appropriate Medications: Vancomycin: 12/09-01/01/24 Daptomycin: 12/31-present Labs: WBC: 6.18-->3.82-->4.63-->4.71-->4.12 (01/12)-->4.75 (01/19) Creatinine: 0.93-->0.88-->0.76-->0.72-->0.84 CRP: 44.09 (12/09)-->25.69-->11.54-->6.32-->4.04 mg/L (12/15)-->3.71-->4.13 (01/12)-->3.99 (01/19) CK: 76 (01/19) Micro: Wound culture: 12/09/23 - Neg (GS with no WBCs, + GPCs) Blood cultures: 12/10/23 - Neg x 2 sets Wound culture: 01/17/24 - Neg (GS with few WBCs, no orgs) Previous cultures: 08/30/23 R wrist - MRSA (S Levaquin, Clinda, Linezolid, Vanc, Tetracycline, Rifampin, Bactrim) 10/08/23 R wrist - MRSA (same sensitivities as above) Radiology: None new Assessment and Plan: 43 y.o. male with h/o DM2, HTN, HL, L carpal tunnel release (08/06/23) and R carpal tunnel release (08/20/23) who is currently being treated for a non-healing wound on the R wrist at the surgical site. Previous culture from 10/08/23 washout with MRSA, but cultures since then have been negative, including most recently on 01/17/24. We are attempting a long course of IV antibiotics to sterilize the deeptissues in an attempt to allow this to heal. Unfortunately, there still seems to be quite a bit of drainage, even with wound vac and serial casting. Though, from our discussion this morning, it is perhaps starting to heal slowly. For now, we'll continue the Dapto daily with plans to end 02/04/24. Could still consider excision of sinus tract and/or flap coverage. Could also consider sending fungal/AFB cultures though that would be quite unusual. Will follow up with Dr. Ross closer to his end date and could perhaps switch to PO Clinda/Doxy/Bactrim. It has been a pleasure seeing Khris Hook in clinic today. Cortney Brush MD, MPH [facility] Infectious Disease Office: [phone] [facility] Telehealth Video Visit Today's visit was provided through telemedicine video conferencing: Zoom I have reviewed the appropriateness of using video technology with the patient with regards to today's visit. The location of the patient : Home (where patient lives) The location of the provider: Clinic Exam Room Verbal consent: The concept of ???Telemedicine?? has been described to the patient.? Patient has been informed of the anticipated benefits and possible risks.? Patient understands the information provided regardingtelemedicine, has had the opportunity to ask questions about this information, and all questions have been answered to patient???s satisfaction. Patient consents for the use of telemedicine in his/her medical care and authorizes the transmission of any relevant medical information to providers and their staff involved in patient???s medical or mental health care. Patient understands that they maybe responsible for copays, deductible or coinsurance for this service. The following people and their roles were present for today's visit: Appointment Provider: Cortney Brush MD Patient I spent a total of 35 minutes on the date of this encounter meeting with the patient and reviewing documentation/coordinating care as described in the above note. No procedures were performed at the time of the visit. documented in this encounter Plan of Treatment Not on file documented as of this encounter Visit Diagnoses Diagnosis Open wound of right wrist, subsequent encounter- Primary Surgical site infection Non-healing surgical wound, sequela History of MRSA infection Personal history of Methicillin resistant Staphylococcus aureus 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 Encounter for therapeutic drug monitoring senior care (current) use of antibiotics documented in this encounter Care Teams Glassblower Relationship Specialty Start Date End Date Mariana Abel FNP [address] [place] [phone] PCP - General Family Medicine - Primary Care 07/03/23 documented as of this encounter
--- OUTSIDE RECORDS SUMMARY | 2024-02-20 17:23 | XMS_ITS | Encounter Summary ---
Author Organization [facility] Address [address] [place] [address] Care Team Providers Care Hand Method Lasting Machine Operator Name Role Phone GopiedgardoErikaMariana [place] GREENKEEPER Primary Care Provider [phone] Reason for Visit * Reason Comments New Patient Visit IV Antibiotic * Referral (Routine) - Authorization Not Required Specialty Diagnoses / Procedures [facility] Referred To Contact Infectious Disease Diagnoses Cutaneous abscess, unspecified Unspecified open wound of right wrist, subsequent encounter Edmundo Ross MD [address] [place] [address] Phone: tel: fax: [facility] Infectious Disease [address] [place] [address] Phone: tel: fax: Referral ID Status Reason Start Date Expiration Date Visits Requested Visits Authorized [id number] Authorization Not Required 1 1 Encounter Details Date Type Department Care Team (Latest Contact Info) Description 12/31/2023 10:00 EST Initial consult [facility] Infectious Disease [address] [place] [address] Cortney Brush MD [address] [facility], [address] [place] [address] Non-healing surgical wound, sequela (Primary Dx); Surgical site infection; History of MRSA infection; 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 Outpatient Infectious Disease Consult Note Patient name: Khris Hook Today's date: 12/31/23 Consulting Provider: Edmundo Ross MD Reason for Consult: Management of nonhealing R wrist wound HPI: Khris Hook is a 43 y.o. M with history of DM2, HTN, HL, L carpal tunnel release (08/06/23) and R carpal tunnel release (08/20/23) who is currently being treated for a non-healing wound on theR wrist at the surgical site. Per review of records, he underwent I+D of the R CTR surgial site on 08/30/23 and was treated with Keflex + Doxycycline for 4 weeks after that. He subsequently developed a fluid collection requiring repeat I+D on 10/08/23 with cultures that grew MRSA. He was placed on Levaquin + Rifampin for 30 days, but he continued to have a non-healing wound at the surgical site. [facility]23 and after discussion with myself, he was started on Bactrim DS 2 tabs BID. Unfortunately, he had further dehiscence and went to the ED 12/09. Flexor tendons were exposed at the base of the wound but there was serous, non-purulent drainage. MRI was one and showed fluid around the tendons but no abscess or true collection. Normal WBC count, CRP 44 Cultures were obtained at bedside 12/08 and showed GPCs on gram stain, but culture was negative. He was admitted to [facility], and Dr. Ross did put in a few sutures to cover the exposed tendons but left the rest of the wound open to drain. Given concerns for underlying persistent infection causing this non-healing wound, he had PICC line placed and was started on IV Vancomycin with plans to continue for 6 weeks (12/09-01/31/24). We have been monitoring his labs, and his Vanc level has beenquite low. Rather than increasing to Q8 hour dosing at home, we will be switching to daily Daptomycin. He is here today for consult. Today, he says he changes the dressing 5 times per day because there is so much drainage. He has had some issues with the PICC line that required thrombolytics as well. He does have dogs and cats at home, but he says they never lick the wound - he has kept it covered all the time since his initial surgery in August. When he showers, he puts a vet sleeve over it so it never gets wet. But he says there is copious drainage. Review of Systems: See HPI Past Medical History/Past Surgical History: Past Medical History: Diagnosis Date Diabetes mellitus ([facility]) Past Surgical History: Procedure Laterality Date CARPAL TUNNEL RELEASE Bilateral 08/20/2023 EYE SURGERY WRIST SURGERY Right 08/30/2023 I&D carple tunnel wound Medications Current Outpatient Medications Medication acetaminophen (TYLENOL) 500 mg tablet aspirin chewable 81 mg tablet atorvastatin (LIPITOR) 80 mg tablet BD ULTRA-FINE MICRO PEN NEEDLE 32 gauge x 1/4 needle blood glucose meter (EtixTOUCH VERIO FLEX METER) empagliflozin (JARDIANCE) 25 mg tablet ezetimibe (ZETIA) 10 mg tablet famotidine (PEPCID) 40 mg tablet FREESTYLE STARR 3 SENSOR device glimepiride (AMARYL) 4 mg tablet indomethacin (INDOCIN) 50 mg capsule insulin aspart U-100 (NOVOLOG FLEXPEN) 100 unit/mL (3 mL) injectable pen insulin lispro (HUMALOG KWIKPEN) 100 unit/mL injectable pen lamoTRIgine (LAMICTAL) 200 mg tablet lancets liraglutide (VICTOZA 3-CRUZITO) 0.6 mg/0.1 mL (18 mg/3 mL) injectable pen lisinopriL (PRINIVIL) 20 mg tablet meloxicam (MOBIC) 15 mg tablet metFORMIN (GLUCOPHAGE-XR) 500 mg ER tablet montelukast (SINGULAIR) 10 mg tablet omeprazole (PRILOSEC) 40 mg capsule ONETOUCH ULTRA BLUE TEST STRIP test strips OZEMPIC 2 mg/dose (8 mg/3 mL) pen injector sertraline (ZOLOFT) 100 mg tablet traZODone (DESYREL) 150 mg tablet TRESIBA FLEXTOUCH U-200 200 unit/mL (3 mL) 200 unit/ml (3ml) insulin pen No current facility-administered medications for this visit. Allergies No Known Allergies Social History: Social History Socioeconomic History Marital status: Single Spouse name: Not on file Number of children: Not on file Years of education: Not on file Highest education level: Not on file Occupational History Not on file Tobacco Use Smoking status: Never Smokeless tobacco: Never Substance and Sexual Activity Alcohol use: Never Drug use: No Sexual activity: Not on file Other Topics Concern Not on file Social History Narrative Not on file Health Related Social Needs Financial Strain: Not on file Food Insecurity: Not on file Transportation Needs: Not on file Physical Activity: Not on file Housing Stability: Not on file Family History: The Family History was reviewed and is non-contributory for a past history of infection or immunocompromised state. Physical Exam Vital Signs: BP 120/90 Pulse 84 Temp 36.7 ??C (98.1 ??F) Wt (!) 144.2 kg (318 lb) BMI 44.52kg/m?? General: NAD Skin: R wrist without drainage when the dressing was first removed - dime sized serous fluid on dressing that he says was changed an hour ago. Probed with sterile Qtip and no drainage on the Qtip. Tried to milk drainage out of the wound with palpation, but nothing expressed. I left the room for appx 2 minutes to get dressing supplies, and when I returned, there was bubbly/foamy fluid on the top of the wound. He and his partner state that this is the drainage that comes out when he moves his wrist. HEENT: AT/NC; moist mucous membranes; sclera anicteric. Pulm: No cough, no increased work of breathing Abd: non-distended Ext: Unremarkable Neuro: Nonfocal Psych: Appropriate ID Pertinent Medications: Vancomycin: 12/09-present Labs: WBC: 6.18-->3.82-->4.63 Creatinine: 0.93-->0.88 CRP: 44.09 (12/09)-->25.69-->11.54-->6.32-->4.04 mg/L (12/15) Micro: Wound culture: 12/09/23 - Neg (GS with no WBCs, + GPCs) Blood cultures: 12/10/23 - Neg x 2 sets Radiology: MRI ([facility]) RUE: 12/10/23 - IMPRESSION: Open wound of the volar right wrist with mild, expected granulation tissue enhancement. No abscess,tenosynovitis, or flexor tendon discontinuity. No MRI finding of deep fascial infection of the handor distal forearm. Median nerve enlargement is consistent with chronic sequela of carpal tunnel syndrome. Assessment and Plan: 43 y.o. M with h/o DM2, HTN, HL, L carpal tunnel release (08/06/23) and R carpal tunnel release (08/20/23) who is currently being treated for a non-healing wound on the R wrist at the surgical site. Previous culture from 10/08/23 washout with MRSA, but cultures since then have been negative. We are attempting a long course of IV antibiotics to sterilize the deep tissues in an attempt to allow this toheal. Unfortunately, it sounds like there is quite a bit of drainage, though I was not able to appreciate much when I took the dressing off initially. And the fluid on the wound when I returned to the room was bubbly/foamy which isn't usual for wound drainage. At this point, I recommend the following and have reached out to Dr. Ross with these thoughts - 1) Switch the IV Vanco to IV Daptomycin 8mg/kg Q24 hours based on adjusted BW. This will be given daily at [facility]. Weekly CBC, BMP, CRP, and CK. I have asked him to decrease his atorvastatin to half dosing (40mg) while on daptomycin. 2) Consider wound vac versus serial casting to protect the integrity of the dressing at the site 3) Will follow up close to end date (01/20) to discuss possibly transitioning to oral suppression until it is completely healed It has been a pleasure seeing Khris Hook in clinic today. Cortney Brush MD, MPH [facility] Infectious Disease Office: [phone] CC: referring provider, PCP I spent a total of 75 minutes on the date of this encounter meeting with the patient and reviewing documentation/coordinating care as described in the above note. No procedures were performed at the time of the visit. * Ayana Lambert RN - 12/31/2023 1000 EST [facility] Infectious Disease New Patient Questionnaire Name:_Khris Hook____ Date of :__1980__ 1. Have you experienced any of the following symptoms in the last month? new joint pains, rash , and SOB 2. Has a doctor ever told you that you have: None 3. Have you had any of the following surgeries? None 4. Do you have any family history of the following? heart disease, allergies, and diabetes 5. In the last year, have you or your immediate family had recurrent contact with: cats and dogs 6. 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 Any travel outside of [place] in the last year? No 9. Do you eat raw or undercooked meats? No 10. Do you eat raw or unpasteurized dairy products? No 11. Do you smoke cigarettes or use tobacco in any form? No 12. Do you drink alcohol? No 13. Any recreational drugs use other than marijuana? No 14. Do you live alone? No If not, with whom do you live? Do you feel safe at home? 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 vancomycin 1.25 gram recon soln Inject 1,750 mg into the vein every 12 hours. added in this encounter Care Teams Hand Method Lasting Machine Operator Relationship Specialty Start Date End Date Mariana Abel FNP [address] [place] [address] PCP - General Family Medicine - Primary Care 07/03/23 documented as of this encounter
--- OUTSIDE RECORDS SUMMARY | 2024-02-20 17:23 | XMS_ITS | Encounter Summary ---
Author Organization [facility] Address [address] [place] [address] Care Team Providers Care Outside Property Agent Name Role Phone Arturo Palomo MD Primary Care Provider [phone] Reason for Visit * Reason Onset Date Comments Medications Refill 10/21/2019 Encounter Details Date Type Department Care Team (Late st Contact Info) Description 10/21/2019 Refill [facility] Endocrinology [address] [place] [id number] Mariah Young RN Medications Refill Social History [...] Refills Last Filled Start Date End Date empagliflozin (JARDIANCE) 10 mg tablet Take 1 Tab by mouth daily. 90 Tab 3 10/21/2019 01/27/2020 documented in this encounter Plan of Treatment Not on file documented as of this encounter Visit Diagnoses Not on filedocumented in this encounter Discontinued Medications Medication Sig Discontinue Reason Start Date End Da te empagliflozin (JARDIANCE) 10 mg tablet Take 1 Tab by mouth daily. Reorder 08/25/2019 10/21/2019 documented as of this encounter Care Teams Outside Property Agent Relationship Specialty Start Date End Date Arturo Palomo MD PCP - General 11/17/16 07/02/23 documented as of this encounter
--- OUTSIDE RECORDS SUMMARY | 2024-02-20 17:23 | XMS_ITS | Encounter Summary ---
Author Organization [facility] Address [address] [place] [address] Care Team Providers Care Mechanic General Operational Test Name Role Phone Colten Mariana Amanda STATISTICAL ASSISTANT Primary Care Provider Reason for Visit * Reason Onset Date Comments Appointment Related 08/27/2023 Encounter Details Date Type Department Care Team (Late st Contact Info) Description 08/27/2023 Telephone [facility] Bariatric Surgery [facility] [address] [place], [place] [phone] Lonnie Diallo MD [address] [place] [address] Appointment Related Social History Tobacco Use Types [...] encounter Miscellaneous Notes * Telephone Encounter - Swathi Pearson - 08/27/2023 0902 EDT Called Khris at [phone], message left requesting return call re: rescheduling EGD w/ [facility] direct line. When calls back EGD & clinic f/u rescheduled. documented in this encounter Plan of Treatment Not on file documented as of this encounter Visit Diagnoses Not on filedocumented in this encounter Care Teams Mechanic General Operational Test Relationship Specialty Start Date End Date Mariana Abel FNP [address] [place] [phone] PCP - General Family Medicine - Primary Care 07/03/23 documented as of this encounter
--- OUTSIDE RECORDS SUMMARY | 2024-02-20 17:23 | XMS_ITS | Encounter Summary ---
Author Organization [facility] Address [address] [place] [address] Care Team Providers Care Building Trades Teacher Name Role Phone Mariana Abel COMPRESSOR STATION ENGINEER CHIEF Primary Care Provider Reason for Visit * Reason Onset Date Comments Results 01/29/2024 Encounter Details Date Type Department Care Team (Late st Contact Info) Description 01/29/2024 Telephone [facility] Infectious Disease [address] [place] [address] Ayana Lambert, OMERO [address] [place], [place] [id number] Results Social History Tobacco Use Types Packs/Day [...] Telephone Encounter - Ayana Lambert RN - 01/29/2024 1141 EST Lm stating labs were fine, no changes needed, call with any questions. * Telephone Encounter - Ayana Lambert RN - 01/29/2024 1141 EST ----- Message from Cortney Brush MD sent at 01/28/2024 8:48 EST ----- All labs stable. No changes. ----- Message ----- From: Allan Jacobs Sent: 01/28/2024 8:35 EST To: Cortney Brush MD documented in this encounter Plan of Treatment Not on file documented as of this encounter Visit Diagnoses Not on filedocumented in this encounter Care Teams Building Trades Teacher Relationship Specialty Start Date End Date Mariana Abel FNP [address] [place] [phone] PCP - General Family Medicine - Primary Care 07/03/23 documented as of this encounter
--- OUTSIDE RECORDS SUMMARY | 2024-02-20 17:23 | XMS_ITS | Encounter Summary ---
Author Organization [facility] Address [address] [place] [address] Care Team Providers Care Electrical Engineering Manager Name Role Phone Colten Mariana Amanda TIRE STRIPPER Primary Care Provider [phone] Encounter Details Date Type Department Care Team (Late st Contact Info) Description 10/09/2023 Lab Requisition [facility] Pathology & Laboratory Medicine - [facility] [address] [place] [address] Outr Resulting Lab, Provider Social History Tobacco [...] Associated Diagnosis Comments ANAEROBE CULTURE, REFERENCE Routine 10/08/2023 19:45 EDT documented in this encounter Results * ANAEROBE CULTURE, REFERENCE (10/08/2023 19:45 EDT) Organism ID No Anaerobes Isolated 10/18/2023 16:01 EDT [facility] Tissue WRIST REGION STRUCTURE / Unknown 10/08/2023 19:45 EDT 10/09/2023 17:50 EDT us Provider Outr Resulting Lab MICROBIOLOGY - GENER AL ORDERABLES Final Result [facility] [address] [place] [id number] documented in this encounter Visit Diagnoses Not on filedocumented in this encounter Care Teams Electrical Engineering Manager Relationship Specialty Start Date End Date Mariana Abel FNP [address] [place] [phone] PCP - General Family Medicine - Primary Care 07/03/23 documented as of this encounter
--- OUTSIDE RECORDS SUMMARY | 2024-02-20 17:23 | XMS_ITS | Referral Summary ---
Author Organization [facility] Address [address] [place] [address] Care Team Providers Care Data Collector Name Role Phone Mariana Abel COMPUTER OPERATIONS SPECIALIST Primary Care Provider Encounters Date Type Department Care Team Description 01/29/2024 Telephone [facility] Infectious Disease [address] [place], [place] [phone] Ayana Lambert, RN Results 01/27/2024 [facility] Infectious Disease [address] [place], [place] [phone] Cortney Brush MD Coordination Of Care 01/20/2024 11:30 EST Telemedicine [facility] Infectious Disease [address] [place], [place] [phone] Cortney Brush MD Open wound of right wrist, subsequent encounter (Primary Dx); Surgical site infection; Non-healing surgical wound, sequela; History of MRSA infection; 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; 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 01/14/2024 Telephone [facility] Infectious Disease [address] [place] [phone] Cortney Brush MD Other 01/07/2024 [facility] Infectious Disease [address] [place], [place] [phone] Ayana Lambert, RN Results 12/31/2023 [facility] Infectious Disease [address] [place], [place] [phone] Ayana Lambert RN IV Antibiotic 12/31/2023 10:00 EST Initial consult [facility] Infectious Disease [address] [facility], [place] [phone] Cortney Brush MD Non-healing surgical wound, sequela (Primary Dx); Surgical site infection; History of MRSA infection; 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 trough); Labs Only 12/16/2023 Telephone [facility] Infectious Disease [address] [place] [address], [place] [phone] Ayana Lambert RN Appointment Related from Last 3 Months Allergies Active Allergy Reactions Criticality Noted Date [...] wi thout long-term current use of insulin ([facility]) 07/02/2019 HTN (hypertension) 07/02/2019 Hyperlipidemia 07/02/2019 Depression 07/02/2019 Immunizations Name Administration Dates Next Due Covid-19 mRNA Vaccine (PFIZE R COVID-19) PF 0.3 ml IM (12 yrs+) 02/24/2021,05/17/2020 Influenza Vaccine Quad (FLUZ ONE) MDV w/preserv 0.5 ml IM (6 mos+) 11/29/2016 Pneumococcal Conjugate Vacci ne 20-Valent (PCV20) (PREVNAR-20) 0.5 mL IM (6 wks+) 05/23/2022 Tdap Vaccine =>7YO IM 05/23/2022,04/17/2011 Social History Tobacco Use Types Packs/Day Years [...] 9:08 EDT Sexual Orientation Not on file Last Filed Vital Signs Vital Sign Reading [...] Body Mass Index 44.52 07/18/2023 1400 EDT Functional Status * Because of a physical, mental, or emotional condition, does this person have difficulty doing errands alone such as visiting a doctor's office or shopping? Answer Date of Assessment Author No 07/17/2019 15:41 EDT Mental Status * Because of a physical, mental, or emotional condition, does this person have serious difficulty concentrating, remembering, or making decisions? Answer Entry Date Author No 07/17/2019 15:41 EDT Plan of Treatment Not on file Procedures Procedure Name Priority Date/Time Associated Diagnosis Comments POCT HEMOGLOBIN A1C Routine 12/10/2019 Type 2 diabetes mellitus with hyperglycemia, without long-term current use of insulin ([facility]) from Last 3 Months or Most Recently Relevant to Health Maintenance Results * (ABNORMAL) POCT HEMOGLOBIN A1C (12/10/2019) Hemoglobin A1c, POC 8.0(A) <=5.7 % [facility] POINT OF CARE Blood CAPILLARY BLOOD / Unknown 12/10/2019 Glendy Jones MD POINT OF CARE TEST ORDERABLES Final Result [facility] POINT OF CARE from Last 3 Months or Most Recently Relevant to Health Maintenance Insurance P Care Teams Data Collector Relationship Specialty Start Date End Date Mariana Abel FNP [address] [place] [address] PCP - General Family Medicine - Primary Care 07/03/23
--- OUTSIDE RECORDS SUMMARY | 2024-02-20 17:23 | XMS_ITS | Encounter Summary ---
Author Organization [facility] Address [address] [place] [address] Care Team Providers Care Woodwork Teacher Name Role Phone Arturo Palomo MD Primary Care Provider [phone] Encounter Details Date Type Department Care Team (Late st Contact Info) Description 07/02/2019 Abstract [facility] Endocrinology [address] [place], [place] [phone] Mraiah Young RN Social History Tobacco Use Types Packs/Day Years [...] Diagnoses Not on filedocumented in this encounter Historical Medications * This list may reflect changes made after this encounter. montelukast (SINGULAIR) 10 mg tablet Take 1 Tablet by mouth daily. sertraline (ZOLOFT) 100 mg tablet Take 2 Tablets by mouth daily. meloxicam (MOBIC) 15 mg tablet Take 1 Tablet by mouth daily. aspirin chewable 81 mg tablet Take 1 Tablet by mouth daily. liraglutide (VICTOZA 3-CRUZITO) 0.6 mg/0.1 mL (18 mg/3 mL) injectable pen Inject 1.8 mg into the skin daily. 10/21/2019 traZODone (DESYREL) 50 mg tablet Take 1 Tablet by mouth at bedtime. 12/18/2023 traZODone (DESYREL) 100 mg tablet Take 1.5 Tablets by mouth at bedtime. 12/18/2023 sertraline (ZOLOFT) 100 mg tablet Take 100 mg by mouth daily. 08/25/2019 lamoTRIgine (LAMICTAL) 25 mg tablet Take 6 Tablets by mouth daily. 12/18/2023 glimepiride (AMARYL) 2 mg tabletIndications :taking in am only Take 1 Tablet by mouth 2 times daily. 12/18/2023 atorvastatin (LIPITOR) 40 mg tablet Take 1 Tablet by mouth daily. 12/18/2023 added in this encounter Care Teams Woodwork Teacher Relationship Specialty Start Date End Date Arturo Palomo MD PCP - General 11/17/16 07/02/23 documented as of this encounter
--- OUTSIDE RECORDS SUMMARY | 2024-02-20 17:23 | XMS_ITS | Encounter Summary ---
Author Organization [facility] Address [address] [place] [address] Care Team Providers Care Bill Poster Installer Name Role Phone Mariana Abel CREAM GATHERER Primary Care Provider Reason for Visit * Reason Onset Date Comments Results 01/07/2024 Encounter Details Date Type Department Care Team (Late st Contact Info) Description 01/07/2024 Telephone [facility] Infectious Disease [address] [place] [address] Ayana Lambert, OMERO [address] [place], [place] [phone] Results Social History Tobacco Use Types Packs/Day [...] Telephone Encounter - Ayana Lambert RN - 01/07/2024 0942 EST Patient notified of lab results. Infusions are going well, a lot faster. Wound still open, had somegreen discharge yesterday but orrupesh was not concerned. He sees ortho daily for wound care. He will continue infusions and follow up on 01/19. * Telephone Encounter - Ayana Lambert RN - 01/07/2024941 EST ----- Message from Cortney Brush MD sent at 01/07/2024 9:06 EST ----- WBC: 6.18-->3.82-->4.63-->4.71 Creatinine: 0.93-->0.88-->0.76 CRP: 44.09 (12/09)-->25.69-->11.54-->6.32-->4.04 mg/L (12/15)-->3.71 Labs all stable. No changes. ----- Message ----- From: Allan Jacobs Sent: 01/07/2024 8:50 EST To: Cortney Brush MD documented in this encounter Plan of Treatment Not on file documented as of this encounter Visit Diagnoses Not on filedocumented in this encounter Care Teams Bill Poster Installer Relationship Specialty Start Date End Date Mariana Abel FNP [address] [place] [phone] PCP - General Family Medicine - Primary Care 07/03/23 documented as of this encounter
--- OUTSIDE RECORDS SUMMARY | 2024-02-20 17:23 | XMS_ITS | Encounter Summary ---
Author Organization [facility] Address [address] [place] [address] Care Team Providers Care Manager Of Program Name Role Phone Arturo Palomo MD Primary Care Provider [phone] Reason for Referral * Radiology Services (Routine/Next Available) - Closed Specialty Diagnoses / Procedures Referred By Contac t Referred To Contact Radiology Diagnoses Headache, unspecified Procedures MR HEAD WO CONTRAST Arturo Palomo MD [address] [address] Phone: tel: fax: [facility] Referral ID Status Reason Start Date Expiration Date Visits Re quested Visits Authorized [id number] Closed 08/25/2021 10/23/2021 1 1 Reason for Visit * Radiology Services (Routine/Next Available) - Closed Specialty Diagnoses / Procedures Referred By Louis pickett Referred To Contact Radiology Diagnoses Headache, unspecified Procedures MR HEAD WO CONTRAST Arturo Palomo MD [address] [address] Phone: tel: fax: [facility] Referral ID Status Reason Start Date Expiration Date Visits Re quested Visits Authorized [id number] Closed 08/25/2021 10/23/2021 1 1 Encounter Details Date Type Department Care Team (Latest Contact Info) Description 10/13/2021 6:03 EDT - 10/13/2021 23:59 EDT Hospital Encounter [facility] MRI [address] [place], [place] [phone] Headache, unspecified Discharge Disposition: Home or Self Care Social [...] 07/17/2019 15:41 EDT documented in this encounter Medications at Time of Discharge aspirin chewable 81 mg tablet Take 1 Tablet by mouth daily. blood glucose meter (ONETOUCH VERIO FLEX METER) every 12 hours. 10/16/2018 empagliflozin (JARDIANCE) 25 mg tablet Take 1 Tablet by mouth daily. famotidine (PEPCID) 40 mg tablet Take 1 Tablet by mouth daily. 07/28/2019 indomethacin (INDOCIN) 50 mg capsule Take by mouth 3 times daily. 08/18/2019 insulin aspart U-100 (NOVOLOG FLEXPEN) 100 unit/mL (3 mL) injectable pen Inject 3 Units into the skin daily. 3 u with dinner lancets every 12 hours. 10/16/2018 liraglutide (VICTOZA 3-CRUZITO) 0.6 mg/0.1 mL (18 mg/3 mL) injectable pen Inject 1.8 mg into the skin daily. 9 Pen 3 02/18/2020 meloxicam (MOBIC) 15 mg tablet Take 1 Tablet by mouth daily. montelukast (SINGULAIR) 10 mg tablet Take 1 Tablet by mouth daily. GuidekickUCH ULTRA BLUE TEST STRIP test strips USE TO CHECK BLOOD SUGAR BEFORE MEALS AND AT BEDTIME 07/16/2019 sertraline (ZOLOFT) 100 mg tablet Take 2 Tablets by mouth daily. atorvastatin (LIPITOR) 40 mg tablet Take 1 Tablet by mouth daily. 12/18/2023 buPROPion (WELLBUTRIN XL) 150 mg XL tablet TAKE 1 TABLET BY MOUTH EVERY DAY IN THE MORNING 06/30/2019 12/18/2023 busPIRone (BUSPAR) 10 mg tablet Take 10 mg by mouth 3 times daily. 05/29/2019 12/18/2023 glimepiride (AMARYL) 2 mg tabletIndications :taking in am only Take 1 Tablet by mouth 2 times daily. 12/18/2023 insulin degludec (TRESIBA FLEXTOUCH U-100) 100 unit/ml (3ml) insulin pen 18 Units daily. 12/18/2023 lamoTRIgine (LAMICTAL) 25 mg tablet Take 6 Tablets by mouth daily. 12/18/2023 lisinopril (PRINIVIL, ZESTRIL) 10 mg tablet Take 2 Tablets by mouth daily. 12/18/2023 metFORMIN (GLUCOPHAGE) 500 mg tablet Take 2 Tablets by mouth 2 times daily. 12/18/2023 traZODone (DESYREL) 100 mg tablet Take 1.5 Tablets by mouth at bedtime. 12/18/2023 traZODone (DESYREL) 50 mg tablet Take 1 Tablet by mouth at bedtime. 12/18/2023 UBIDECAR/VIT B6/B12/B5/MGOX (RX BALANCE STATIN ORAL) Take 1 Tab by mouth daily. 12/18/2023 documented as of this encounter Discharge Disposition Disposition Code Departure Means Destination Home or Self Care documented in this encounter Plan of Treatment Not on file documented as of this encounter Procedures Procedure Name Priority Date/Time Associated Diagnosis Comments HEAD WO CONTRAST Routine 10/13/2021 7 :11 EDT Headache, unspecified documented in this encounter Results * MR HEAD WO CONTRAST (10/13/2021 7:11 EDT) Anatomical Region Laterality Modality Head Magnetic Resonan ce 10/13/2021 8:24 EDT Impressions 10/13/2021 8:24 EDT 1. No acute intracranial abnormality. 2. Few tiny foci of T2 hyperintensity within the supratentorial periventricular and subcortical white matter. This finding is nonspecific but is often attributed to early cerebral microangiopathy. The expanded differential includes migraines and vasculitis as well as potentially demyelinating disease (although felt unlikely given minimal lesions). Narrative 10/13/2021 8:24 EDT INDICATION: HEADACHE TECHNIQUE: ??Multiplanar multisequence MRI of the brain was performed without contrast COMPARISON: None. FINDINGS: The ventricles and sulci are age-appropriate. There is no mass effect or midline shift. No abnormal extra-axial fluid collection is present. There are a few punctate foci of T2 hyperintensity within the supratentorial periventricular and subcortical white matter. The signal intensity throughout the brain and brainstem is otherwise normal. There is no abnormal restricted diffusion. The basal cisterns are patent. The major vascular flow voids are preserved. The midline structures are anatomic. The paranasal sinuses are clear. The orbits are intact. Procedure Note Amadeo Winston MD - 10/13/2021 INDICATION: HEADACHE TECHNIQUE: Multiplanar multisequence MRI of the brain was performedwithout contrast COMPARISON: None. FINDINGS: The ventricles and sulci are age-appropriate. There is no masseffect or midline shift. No abnormal extra-axial fluid collection ispresent. There are a few punctate foci of T2 hyperintensity within thesupratentorial periventricular and subcortical white matter. The signalintensity throughout the brain and brainstem is otherwise normal. There isno abnormal restricted diffusion. The basal cisterns are patent. The majorvascular flow voids are preserved. The midline structures are anatomic. The paranasal sinuses are clear. The orbits are intact. IMPRESSION 1. No acute intracranial abnormality. 2. Few tiny foci of T2 hyperintensity within the supratentorialperiventricular and subcortical white matter. This finding is nonspecificbut is often attributed to early cerebral microangiopathy. The expandeddifferential includes migraines and vasculitis as well as potentiallydemyelinating disease (although felt unlikely given minimal lesions). us Arturo Palomo MD IMG MRI ORDERABLES Final Result documented in this encounter Visit Diagnoses Diagnosis Headache, unspecified documented in this encounter Care Teams Manager Of Program Relationship Specialty Start Date End Date Arturo Palomo MD PCP - General 11/17/16 07/02/23 documented as of this encounter
--- OUTSIDE RECORDS SUMMARY | 2024-02-20 17:23 | XMS_ITS | Encounter Summary ---
Author Organization [facility] Address [address] [place] [address] Care Team Providers Care Title Attorney Name Role Phone Mariana Abel MOTOR RUNNER Primary Care Provider [phone] Reason for Visit * Reason Onset Date Comments Appointment Related 07/03/2023 Encounter Details Date Type Department Care Team (Late st Contact Info) Description 07/03/2023 Telephone [facility] Bariatric Surgery [facility] [address] [place], [place] [phone] Annette Martínez, PhD [address] [place] [address] Appointment Related Social History Tobacco [...] encounter Miscellaneous Notes * Telephone Encounter - Domo Dias MA - 07/03/2023 1205 EDT LVM in regards to scheduling appt with Dr. Martínez. Advised pt to call back to schedule. documented in this encounter Plan of Treatment Not on file documented as of this encounter Visit Diagnoses Not on filedocumented in this encounter Care Teams Title Attorney Relationship Specialty Start Date End Date Mariana Abel FNP [address] [place] [phone] PCP - General Family Medicine - Primary Care 07/03/23 documented as of this encounter
--- OUTSIDE RECORDS SUMMARY | 2024-02-20 17:23 | XMS_ITS | Encounter Summary ---
Author Organization [facility] Address [address] [place] [address] Care Team Providers Care Bloom Conveyor Operator Name Role Phone Mariana Abel HAND ALMOND BLANCHER Primary Care Provider [phone] Reason for Visit * Reason Onset Date Comments Other 01/14/2024 Encounter Details Date Type Department Care Team (Late st Contact Info) Description 01/14/2024 Telephone [facility] [place] [address] [place], [place] [phone] Cortney Brush MD [address] [facility] [address] [place] [address] Other Social History Tobacco Use Types Packs/Day Years [...] encounter Miscellaneous Notes * Telephone Encounter - Masoud Noe RN - 01/17/2024 0948 EST I called [facility] center and spoke with OMERO Murphy about continuing daptomycinx2 weeks with end date of 02/03, I faxed her written orderes as well, with continued labs as before weekly. Attemptd to call patient, no answer, but left detailed [facility] call back number if any questions * Telephone Encounter - Cortney Brush MD - 01/17/[address] Ross this morning. It sounds like there is continued drainage, even with cast onand wound vac. Perhaps a sinus tract has developed. So at this point, we will extend the Daptomycininfusions by 2 weeks (new end date 02/03) and Ortho will take him back for excision of the sinus tract. We just need to let the patient know that we are extending the Dapto and make sure [facility] has orders (he's getting it done there daily). Dr. Ross will touch base with patient about surgicalmanagement. * Telephone Encounter - Allan Jacobs - 01/15/2024 1537 EST [facility] returned call, sending request to their medical records for dispersal. * Telephone Encounter - Allan Jacobs - 01/15/2024 1533 EST Left message for [facility] to see if notes are signed and okay to be sent. * Telephone Encounter - Cortney Brush MD - 01/15/2024 1046 EST Allan, can we get any notes from my last visit until now from [facility] please? Thanks. * Telephone Encounter - Ayana Lambert RN - 01/14/2024 1622 EST Patient notified. He stated ortho stopped the wound vac because the pad were filling up every 12 hours. He states the wound is not healing and its driving him nuts. He confirmed he has infusions through 01/20. Patient notified that the providers will discuss and we'll get back to him with a plan. * Telephone Encounter - Cortney Brush MD - 01/14/2024 1436 EST Labs from 01/12 look fine. WBC 4.12. Creatinine 0.72. CRP 4.13. ALT slightly up at 63, AST 39. We should get any recent notes from [facility], and I can reach out to them Sat or Saturday of this week to see how they feel he's doing. Continue current plan for now. * Telephone Encounter - Allan Jacobs - 01/14/2024 1225 EST Patient calling to report that wound is still draining. Also, says that according to [facility] if infusions will be extended they will need a new order shortly. documented in this encounter Plan of Treatment Not on file documented as of this encounter Visit Diagnoses Not on filedocumented in this encounter Care Teams Bloom Conveyor Operator Relationship Specialty Start Date End Date Mariana Abel, HAND ALMOND BLANCHER [address] [place] [phone] PCP - General Family Medicine - Primary Care 07/03/23 documented as of this encounter
[2024-02-20 22:22] LABS: COMMENT (LAB VIEW ONLY) 110.79 mg/dL; Microalb ug/mg Crea 11.9 ug/mg Cr
== END 2024-02-20 17:15 | disposition home or self-care (01) ==
LOC: NCHCN 17:14
PROVIDERS: PCP Family Medicine; Visit Provider Nurse Practitioner Family
DX: E11.9 Type 2 diabetes mellitus without complications (principal)
CPT/HCPCS: 82043; 82570